=== PATIENT | female | born 1935 | race Caucasian/White ===

== ENCOUNTER 2017-07-17 07:17 | Inpatient (IN) | payer MEDICARE, MEDICAID ==
[~2017-07-17] VITALS: Ht 154.9 cm; Wt 54.9 kg
[~2017-07-17 07:17] MED LIST: ACET300T4 PO; AGG25C PO; ALBU0.08 HHN; BUSP15TA60 PO; ESOM40CA39 PO; FLUT110A IN; FLUT250M2 INH; IPR002IS HHN; MONT10TA34 PO; POM PO; THEO1CAP3 OR
[2017-07-17] MEDS ORDERED: SODIUM CHLORIDE 0.9% 1,000 ML IV ONE (07:50)
[2017-07-17] MEDS ORDERED: ALBUTEROL SULF 2.5 MG/0.5ML(0.5%) NEB SOLN HHN ONE (08:00)
[2017-07-17] MEDS ORDERED: methylPREDNISolone SOD SUCC 125 MG/2 ML VL IV ONE (08:00)
[2017-07-17] MEDS ORDERED: IPRATROPIUM BROM 0.5 MG/2.5ML INH SOL HHN ONE (08:00)
[2017-07-17] MEDS ORDERED: LEVOFLOXACIN 500MG 100 ML IV ONE (08:00)
[2017-07-17 08:07] LABS: Basophils # (auto) 0.1 uL; Eosinophils # (auto) 0.2 uL; Lymphocytes # (auto) 1.6 uL; Monocytes # (auto) 0.5 uL; Neutrophils # (auto) 5.8 uL; Red Cell Distribution Width 18.7 % (11.8-14.3)
[2017-07-17 08:09] LABS: Basophils % (auto) 0.8 % (0.0-2.0); Eosinophils % (auto) 2.5 % (0.0-7.0); Hematocrit 35.2 % (36.0-46.0); Hemoglobin 11.3 g/dL (12.2-16.2); Lymphocytes % (auto) 19.7 % (10.0-50.0); Mean Corpuscular Hemoglobin 24.2 pg (28.0-32.0); Mean Corpuscular Hgb Conc. 32.2 g/dL (32.0-36.0); Mean Corpuscular Volume 75.1 fL (80.0-100.0); Monocytes % (auto) 6.2 % (0.0-12.0); Neutrophils % (auto) 70.8 % (37.0-80.0); Platelet Count (auto) 236 10^3/uL (140-450); Red Blood Cells 4.69 10^6/uL (4.0-5.20); White Blood Cell 8.3 10^3/uL (4.4-10.8)
[2017-07-17 08:20] LABS: INR 0.98 (0.9-1.15); Partial Thromboplastin Time 22.7 sec (22.64-33.71); Prothrombin Time 10.7 sec (9.37-12.3)
[2017-07-17 08:31] LABS: Alanine Aminotransferase 15 U/L (13-56); Albumin 3.2 g/dL (3.4-5.0); Alkaline Phosphatase 51 U/L (45-117); Anion Gap 9 (5-15); Aspartate Aminotransferase 13 U/L (15-37); BUN/Creatinine Ratio 16.3; Bilirubin, Total 0.4 mg/dL (0.2-1.0); Blood Urea Nitrogen 14 mg/dL (7-18); Carbon Dioxide 25 mmol/L (21-32); Chloride 106 mmol/L (98-107); GFR African American 81 mL/min; GFR Non-African American 67 mL/min; Glucose 97 mg/dL (74-106); Potassium 3.3 mmol/L (3.5-5.1); Sodium 140 mmol/L (136-145); Total Protein 6.2 g/dL (6.4-8.2)
[2017-07-17] MEDS ORDERED: ALBUTEROL SULF 2.5 MG/0.5ML(0.5%) NEB SOLN NEB ONE (12:15)
[2017-07-17] MEDS ORDERED: IPRATROPIUM BROM 0.5 MG/2.5ML INH SOL NEB ONE (12:15)
[2017-07-17] MEDS ORDERED: OSELTAMIVIR 75 MG CAP PO ONE (12:45)
[2017-07-17] MEDS ORDERED: PROMETHAZINE HCL 25 MG/ML 1ML IV PRN (12:45)
[2017-07-17] MEDS ORDERED: DEXTROSE (50%) 50ML SYRG IV PRN (12:45)
[2017-07-17] MEDS ORDERED: ONDANSETRON HCL 4 MG/2 ML VIAL IV PRN (12:45)
[2017-07-17] MEDS ORDERED: LACTULOSE 20Gm/30ML SOLN PO PRN (12:45)
[2017-07-17] MEDS ORDERED: MORPHINE SULF INJ 2 MG/ML SYRINGE 1ML IV PRN (12:45)
[2017-07-17] MEDS ORDERED: DOXYCYCLINE HYC 100MG/250ML 250 ML IV SCH (12:45)
[2017-07-17] MEDS ORDERED: MORPHINE SULFATE 4 MG/ML SYR/VIAL IV PRN (12:45)
[2017-07-17] MEDS ORDERED: ACETAMINOPHEN 500 MG TAB PO PRN (12:45)
[2017-07-17] MEDS: SODIUM CHLORIDE 0.9% 1,000 ML IV SCH (13:07)
[2017-07-17] MEDS: METOPROLOL TARTRATE 25 MG TAB PO SCH (13:08)
[2017-07-17] MEDS: MONTELUKAST SODIUM 10 MG TAB PO SCH (13:08)
[2017-07-17] MEDS ORDERED: POTASSIUM CHL 20 Meq TABLET PO ONE (13:15)
[2017-07-17] MEDS: ASPirin 81 mg TAB PO SCH (13:30)
[2017-07-17] MEDS: PANTOPRAZOLE 40 MG TAB PO SCH (13:30)
[2017-07-17] MEDS ORDERED: AZITHROMYCIN 500MG/ 250ML 250 ML IV ONE (13:45)
[2017-07-17] MEDS ORDERED: POTASSIUM CHL 10% (20 MEQ/15ML) 15ml ORAL SOLN PO ONE (13:45)
[2017-07-17] MEDS: LORazepam 0.5 MG TAB PO PRN (13:59)
[2017-07-17] MEDS: AZITHROMYCIN 250 MG TAB PO SCH (13:59)
[2017-07-17 14:58] LABS: CRP High Sensitivity 0.35 mg/dL (< 0.3)
[2017-07-17] MEDS: ALBUTEROL SULF 2.5 MG/0.5ML(0.5%) NEB SOLN NEB PRN (15:37)
[2017-07-17] MEDS: IPRATROPIUM BROM 0.5 MG/2.5ML INH SOL NEB SCH (18:39)
[2017-07-17] MEDS: ALBUTEROL SULF 2.5 MG/0.5ML(0.5%) NEB SOLN NEB SCH (18:39)
[2017-07-17] MEDS: ACCU-CHEK COMFORT CURVE STRIP VI SCH (18:42)
[2017-07-17] MEDS: methylPREDNISolone SOD SUCC 40 MG/ML VL IV SCH (18:42)
[2017-07-17] MEDS: InsuLIN REG 1unit/0.01ml Soln (100units/ml) SC SCH (18:42)
[2017-07-17] MEDS ORDERED: FLOVENT IN SCH (22:00)
[2017-07-17] MEDS ORDERED: OSELTAMIVIR 75 MG CAP PO SCH (22:00)
[2017-07-17] MEDS: BUDESONIDE (INHALATION) 0.5 MG/2 ML NEB NEB SCH (22:30)
[2017-07-17 23:24] VITALS: BP 119/63
[2017-07-18] VITALS (7 sets, daily range): BP systolic 109–149; BP diastolic 58–80
[2017-07-18] MEDS: ALBUTEROL SULF 2.5 MG/0.5ML(0.5%) NEB SOLN NEB SCH ×4 (00:15→18:45)
[2017-07-18] MEDS: IPRATROPIUM BROM 0.5 MG/2.5ML INH SOL NEB SCH ×4 (00:15→18:45)
[2017-07-18] MEDS: ACCU-CHEK COMFORT CURVE STRIP VI SCH ×5 (01:21→22:00)
[2017-07-18] MEDS: InsuLIN REG 1unit/0.01ml Soln (100units/ml) SC SCH ×5 (01:24→22:00)
[2017-07-18] MEDS: busPIRone HCL 10 MG TAB PO SCH ×3 (01:34→21:57)
[2017-07-18] MEDS: METOPROLOL TARTRATE 25 MG TAB PO SCH ×3 (01:35→21:57)
[2017-07-18] MEDS: ATORVASTATIN 20 MG TAB PO SCH ×2 (01:35→21:56)
[2017-07-18] MEDS: methylPREDNISolone SOD SUCC 40 MG/ML VL IV SCH ×4 (01:36→18:02)
[2017-07-18] MEDS: PATIENTS OWN MEDICATION PO SCH ×3 (01:37→21:59)
[2017-07-18] MEDS: HYDROcodone-ACET 5/325MG TAB PO PRN ×2 (02:41→15:29)
[2017-07-18] MEDS: SODIUM CHLORIDE 0.9% 1,000 ML IV SCH ×2 (02:41→15:19)
[2017-07-18 07:00] LABS: Cholesterol 236 mg/dL (< 200); HDL Cholesterol 102 mg/dL (40-59); LDL Cholesterol 122 mg/dL (< 100); Triglycerides 110 mg/dL (< 150)
[2017-07-18] MEDS: ALBUTEROL SULF 2.5 MG/0.5ML(0.5%) NEB SOLN NEB PRN (08:51)
[2017-07-18] MEDS: ASPirin 81 mg TAB PO SCH (09:49)
[2017-07-18] MEDS: AZITHROMYCIN 250 MG TAB PO SCH (09:49)
[2017-07-18] MEDS: PANTOPRAZOLE 40 MG TAB PO SCH (09:49)
[2017-07-18] MEDS: THEOPHYLLINE 300 MG PO SCH (10:00)
[2017-07-18] MEDS ORDERED: AZITHROMYCIN 500MG/ 250ML 250 ML IV SCH (10:00)
[2017-07-18] MEDS: MONTELUKAST SODIUM 10 MG TAB PO SCH (10:17)
[2017-07-18] MEDS: ASPIRIN-DIPYRIDAMOLE (25/200MG) CAPSULE PO SCH (10:17)
[2017-07-18] MEDS: BUDESONIDE (INHALATION) 0.5 MG/2 ML NEB NEB SCH ×2 (11:43→18:45)
[2017-07-18] MEDS: LORazepam 0.5 MG TAB PO PRN (14:47)
[2017-07-18] MEDS ORDERED: FUROSEMIDE 20 MG/2 ML VIAL IV ONE (17:45)
[2017-07-18] MEDS: BOOST PLUS 8 ounce PO SCH (18:02)
[2017-07-19] MEDS: IPRATROPIUM BROM 0.5 MG/2.5ML INH SOL NEB SCH ×4 (00:19→18:12)
[2017-07-19] MEDS: ALBUTEROL SULF 2.5 MG/0.5ML(0.5%) NEB SOLN NEB SCH ×4 (00:19→18:12)
[2017-07-19 06:00] VITALS: BP 129/67
[2017-07-19 06:24] LABS: Basophils # (auto) 0 uL; Basophils % (auto) 0.2 % (0.0-2.0); Eosinophils # (auto) 0 uL; Lymphocytes # (auto) 0.4 uL
[2017-07-19 06:26] LABS: Hematocrit 36.1 % (36.0-46.0); Hemoglobin 11.3 g/dL (12.2-16.2); Mean Corpuscular Hemoglobin 23.7 pg (28.0-32.0); Mean Corpuscular Hgb Conc. 31.3 g/dL (32.0-36.0); Mean Corpuscular Volume 75.8 fL (80.0-100.0); Monocytes # (auto) 0.4 uL; Monocytes % (auto) 1.9 % (0.0-12.0); Neutrophils # (auto) 18.9 uL; Neutrophils % (auto) 95.9 % (37.0-80.0); Platelet Count (auto) 244 10^3/uL (140-450); Red Blood Cells 4.76 10^6/uL (4.0-5.20); Red Cell Distribution Width 18.7 % (11.8-14.3); White Blood Cell 19.7 10^3/uL (4.4-10.8)
[2017-07-19] MEDS: BUDESONIDE (INHALATION) 0.5 MG/2 ML NEB NEB SCH ×2 (06:34→18:12)
[2017-07-19] MEDS: methylPREDNISolone SOD SUCC 40 MG/ML VL IV SCH ×4 (06:34→18:00)
[2017-07-19] MEDS: ACCU-CHEK COMFORT CURVE STRIP VI SCH ×4 (06:37→22:17)
[2017-07-19] MEDS: InsuLIN REG 1unit/0.01ml Soln (100units/ml) SC SCH ×4 (06:37→22:00)
[2017-07-19 06:57] LABS: Alanine Aminotransferase 16 U/L (13-56); Albumin 3.1 g/dL (3.4-5.0); Alkaline Phosphatase 45 U/L (45-117); Anion Gap 8 (5-15); Aspartate Aminotransferase 11 U/L (15-37); BUN/Creatinine Ratio 28.6; Bilirubin, Total 0.4 mg/dL (0.2-1.0); Blood Urea Nitrogen 20 mg/dL (7-18); Calcium 8.8 mg/dL (8.5-10.1); Carbon Dioxide 24 mmol/L (21-32); Chloride 109 mmol/L (98-107); GFR African American 103 mL/min; GFR Non-African American 85 mL/min; Glucose 117 mg/dL (74-106); Potassium 4.1 mmol/L (3.5-5.1); Sodium 141 mmol/L (136-145); Total Protein 6.1 g/dL (6.4-8.2)
[2017-07-19] MEDS: BOOST PLUS 8 ounce PO SCH ×3 (08:30→18:07)
[2017-07-19 09:00] VITALS: BP 120/87
[2017-07-19] MEDS: ALBUTEROL SULF 2.5 MG/0.5ML(0.5%) NEB SOLN NEB PRN ×2 (09:20→21:43)
[2017-07-19] MEDS: THEOPHYLLINE 300 MG PO SCH ×2 (10:00→11:46)
[2017-07-19] MEDS: PATIENTS OWN MEDICATION PO SCH ×2 (10:00→22:16)
[2017-07-19] MEDS: ASPirin 81 mg TAB PO SCH (10:05)
[2017-07-19] MEDS: MONTELUKAST SODIUM 10 MG TAB PO SCH (10:06)
[2017-07-19] MEDS: busPIRone HCL 10 MG TAB PO SCH ×2 (10:06→22:13)
[2017-07-19] MEDS: PANTOPRAZOLE 40 MG TAB PO SCH (10:06)
[2017-07-19] MEDS: AZITHROMYCIN 250 MG TAB PO SCH (10:06)
[2017-07-19] MEDS: METOPROLOL TARTRATE 25 MG TAB PO SCH ×2 (10:07→22:00)
[2017-07-19] MEDS: LORazepam 0.5 MG TAB PO PRN (10:45)
[2017-07-19] MEDS: ASPIRIN-DIPYRIDAMOLE (25/200MG) CAPSULE PO SCH (10:45)
[2017-07-19] MEDS ORDERED: cefTRIAXone 1GM/10ml IVPUSH 10 ML IV ONE (11:45)
[2017-07-19 13:16] VITALS: BP 107/53
[2017-07-19 17:00] VITALS: BP_SYST 113; BP_SYST 149; BP_DIAS 56; BP_DIAS 79
[2017-07-19 20:00] VITALS: BP 108/58
[2017-07-19 22:00] VITALS: BP 108/58
[2017-07-19] MEDS: ATORVASTATIN 20 MG TAB PO SCH (22:13)
[2017-07-19] MEDS: HYDROcodone-ACET 5/325MG TAB PO PRN (22:13)
[2017-07-20] MEDS: methylPREDNISolone SOD SUCC 125 MG/2 ML VL IV SCH ×3 (00:22→17:27)
[2017-07-20] MEDS: ALBUTEROL SULF 2.5 MG/0.5ML(0.5%) NEB SOLN NEB SCH ×4 (01:23→19:03)
[2017-07-20] MEDS: IPRATROPIUM BROM 0.5 MG/2.5ML INH SOL NEB SCH ×4 (01:23→19:03)
[2017-07-20] MEDS: TEMAZEPAM 15 MG CAP PO PRN ×2 (01:44→21:30)
[2017-07-20 05:19] VITALS: BP 110/59
[2017-07-20] MEDS: ACCU-CHEK COMFORT CURVE STRIP VI SCH (06:04)
[2017-07-20] MEDS: InsuLIN REG 1unit/0.01ml Soln (100units/ml) SC SCH (06:04)
[2017-07-20 06:44] LABS: Eosinophils # (auto) 0 uL; Hemoglobin 11.1 g/dL (12.2-16.2)
[2017-07-20 06:45] LABS: Basophils # (auto) 0.1 uL; Basophils % (auto) 0.3 % (0.0-2.0); Hematocrit 34.8 % (36.0-46.0); Lymphocytes # (auto) 0.3 uL; Lymphocytes % (auto) 1.7 % (10.0-50.0); Mean Corpuscular Hgb Conc. 31.9 g/dL (32.0-36.0); Mean Corpuscular Volume 75.1 fL (80.0-100.0); Monocytes # (auto) 0.3 uL; Monocytes % (auto) 1.6 % (0.0-12.0); Neutrophils # (auto) 15.8 uL; Neutrophils % (auto) 96.4 % (37.0-80.0); Platelet Count (auto) 216 10^3/uL (140-450); Red Blood Cells 4.63 10^6/uL (4.0-5.20); White Blood Cell 16.4 10^3/uL (4.4-10.8)
[2017-07-20 06:59] LABS: BUN/Creatinine Ratio 35.8; Calcium 8.8 mg/dL (8.5-10.1); Potassium 3.8 mmol/L (3.5-5.1)
[2017-07-20] MEDS: BOOST PLUS 8 ounce PO SCH ×3 (08:00→17:27)
[2017-07-20] MEDS: BUDESONIDE (INHALATION) 0.5 MG/2 ML NEB NEB SCH ×2 (08:08→19:04)
[2017-07-20 10:04] VITALS: BP 138/65
[2017-07-20] MEDS: METOPROLOL TARTRATE 25 MG TAB PO SCH ×2 (10:52→21:30)
[2017-07-20] MEDS: ASPirin 81 mg TAB PO SCH (10:52)
[2017-07-20] MEDS: THEOPHYLLINE 300 MG PO SCH (10:53)
[2017-07-20] MEDS: MONTELUKAST SODIUM 10 MG TAB PO SCH (10:53)
[2017-07-20] MEDS: busPIRone HCL 10 MG TAB PO SCH ×2 (10:53→21:29)
[2017-07-20] MEDS: PANTOPRAZOLE 40 MG TAB PO SCH (10:53)
[2017-07-20] MEDS: cefTRIAXone 1GM/10ml IVPUSH 10 ML IV SCH (10:54)
[2017-07-20] MEDS: ASPIRIN-DIPYRIDAMOLE (25/200MG) CAPSULE PO SCH (10:54)
[2017-07-20 13:00] VITALS: BP 108/67
[2017-07-20 17:13] VITALS: BP 133/71
[2017-07-20] MEDS: LORazepam 0.5 MG TAB PO PRN (17:26)
[2017-07-20] MEDS: ATORVASTATIN 20 MG TAB PO SCH (21:29)
[2017-07-20] MEDS: PROMETHAZINE W/CODEINE 5 ML ORAL SYRUP PO PRN (21:30)
[2017-07-20 23:41] VITALS: BP 118/74
[2017-07-20 23:48] VITALS: BP 118/63
[2017-07-21] MEDS: ALBUTEROL SULF 2.5 MG/0.5ML(0.5%) NEB SOLN NEB SCH ×4 (00:31→19:11)
[2017-07-21] MEDS: IPRATROPIUM BROM 0.5 MG/2.5ML INH SOL NEB SCH ×4 (00:31→19:11)
[2017-07-21] MEDS: HYDROcodone-ACET 5/325MG TAB PO PRN ×2 (02:41→21:28)
[2017-07-21 04:49] VITALS: BP 107/58
[2017-07-21] MEDS: methylPREDNISolone SOD SUCC 125 MG/2 ML VL IV SCH ×2 (05:35→17:50)
[2017-07-21] MEDS: BUDESONIDE (INHALATION) 0.5 MG/2 ML NEB NEB SCH ×2 (05:56→19:11)
[2017-07-21] MEDS: NITROGLYCERIN 0.4 MG SL TAB SL PRN ×2 (06:21→06:25)
[2017-07-21 06:31] LABS: Basophils # (auto) 0 uL; Basophils % (auto) 0.2 % (0.0-2.0); Eosinophils # (auto) 0 uL; Eosinophils % (auto) 0.1 % (0.0-7.0); Hemoglobin 10.6 g/dL (12.2-16.2); Mean Corpuscular Hemoglobin 24.1 pg (28.0-32.0); Monocytes # (auto) 0.8 uL; Neutrophils # (auto) 13.9 uL
[2017-07-21 06:33] LABS: Lymphocytes # (auto) 0.8 uL; Lymphocytes % (auto) 4.9 % (10.0-50.0); Mean Corpuscular Hgb Conc. 32.1 g/dL (32.0-36.0); Mean Corpuscular Volume 75.1 fL (80.0-100.0); Monocytes % (auto) 5.4 % (0.0-12.0); Neutrophils % (auto) 89.4 % (37.0-80.0); Platelet Count (auto) 211 10^3/uL (140-450); Red Cell Distribution Width 19.1 % (11.8-14.3); White Blood Cell 15.6 10^3/uL (4.4-10.8)
[2017-07-21 06:47] LABS: BUN/Creatinine Ratio 51.8
[2017-07-21] MEDS: BOOST PLUS 8 ounce PO SCH ×3 (08:00→17:50)
[2017-07-21 08:46] VITALS: BP 143/69
[2017-07-21] MEDS: PANTOPRAZOLE 40 MG TAB PO SCH (09:36)
[2017-07-21] MEDS: ASPirin 81 mg TAB PO SCH (09:36)
[2017-07-21] MEDS: ASPIRIN-DIPYRIDAMOLE (25/200MG) CAPSULE PO SCH (09:36)
[2017-07-21] MEDS: THEOPHYLLINE 300 MG PO SCH (09:36)
[2017-07-21] MEDS: RANOLAZINE ER 500 MG TAB PO SCH ×2 (09:36→21:31)
[2017-07-21] MEDS: MONTELUKAST SODIUM 10 MG TAB PO SCH (09:37)
[2017-07-21] MEDS: METOPROLOL TARTRATE 25 MG TAB PO SCH ×2 (09:37→21:27)
[2017-07-21] MEDS: busPIRone HCL 10 MG TAB PO SCH ×2 (09:37→21:28)
[2017-07-21] MEDS: cefTRIAXone 1GM/10ml IVPUSH 10 ML IV SCH (09:38)
[2017-07-21] MEDS: ALBUTEROL SULF 2.5 MG/0.5ML(0.5%) NEB SOLN NEB PRN (10:20)
[2017-07-21 11:59] VITALS: BP 115/58
[2017-07-21 16:40] VITALS: BP 108/61
[2017-07-21] MEDS: LORazepam 0.5 MG TAB PO PRN (19:19)
[2017-07-21] MEDS: ATORVASTATIN 20 MG TAB PO SCH (21:27)
[2017-07-21] MEDS: TEMAZEPAM 15 MG CAP PO PRN (21:29)
[2017-07-21] MEDS: PROMETHAZINE W/CODEINE 5 ML ORAL SYRUP PO PRN (21:29)
[2017-07-21 22:00] VITALS: BP 133/72
[2017-07-22] MEDS: IPRATROPIUM BROM 0.5 MG/2.5ML INH SOL NEB SCH ×4 (00:23→20:02)
[2017-07-22] MEDS: ALBUTEROL SULF 2.5 MG/0.5ML(0.5%) NEB SOLN NEB SCH ×4 (00:23→20:02)
[2017-07-22 05:16] VITALS: BP 139/75
[2017-07-22] MEDS: methylPREDNISolone SOD SUCC 125 MG/2 ML VL IV SCH ×2 (05:45→17:49)
[2017-07-22] MEDS: LORazepam 0.5 MG TAB PO PRN ×2 (06:05→22:11)
[2017-07-22] MEDS: BUDESONIDE (INHALATION) 0.5 MG/2 ML NEB NEB SCH ×2 (07:11→20:02)
[2017-07-22 07:13] LABS: Basophils # (auto) 0 uL; Eosinophils # (auto) 0 uL; Hemoglobin 11.5 g/dL (12.2-16.2); Monocytes # (auto) 0.5 uL; Neutrophils # (auto) 10.9 uL; Nucleated Red Blood Cells % 0.1 %; White Blood Cell 11.9 10^3/uL (4.4-10.8)
[2017-07-22 07:20] LABS: Basophils % (auto) 0.1 % (0.0-2.0); Eosinophils % (auto) 0.1 % (0.0-7.0); Hematocrit 36.4 % (36.0-46.0); Lymphocytes # (auto) 0.6 uL; Lymphocytes % (auto) 4.7 % (10.0-50.0); Mean Corpuscular Hgb Conc. 31.6 g/dL (32.0-36.0); Monocytes % (auto) 3.8 % (0.0-12.0); Neutrophils % (auto) 91.3 % (37.0-80.0); Platelet Count (auto) 214 10^3/uL (140-450); Red Blood Cells 4.79 10^6/uL (4.0-5.20); Red Cell Distribution Width 18.7 % (11.8-14.3)
[2017-07-22 07:25] LABS: Calcium 9.5 mg/dL (8.5-10.1); Potassium 4.1 mmol/L (3.5-5.1)
[2017-07-22] MEDS: BOOST PLUS 8 ounce PO SCH ×3 (08:00→17:49)
[2017-07-22 08:59] VITALS: BP 152/66
[2017-07-22] MEDS: cefTRIAXone 1GM/10ml IVPUSH 10 ML IV SCH (09:09)
[2017-07-22] MEDS: busPIRone HCL 10 MG TAB PO SCH ×2 (09:10→21:51)
[2017-07-22] MEDS: PANTOPRAZOLE 40 MG TAB PO SCH (09:10)
[2017-07-22] MEDS: MONTELUKAST SODIUM 10 MG TAB PO SCH (09:10)
[2017-07-22] MEDS: ASPIRIN-DIPYRIDAMOLE (25/200MG) CAPSULE PO SCH (09:10)
[2017-07-22] MEDS: ASPirin 81 mg TAB PO SCH (09:10)
[2017-07-22] MEDS: RANOLAZINE ER 500 MG TAB PO SCH ×2 (09:11→21:50)
[2017-07-22] MEDS: THEOPHYLLINE 300 MG PO SCH (09:11)
[2017-07-22] MEDS: METOPROLOL TARTRATE 25 MG TAB PO SCH ×2 (09:11→21:51)
[2017-07-22] MEDS: ALBUTEROL SULF 2.5 MG/0.5ML(0.5%) NEB SOLN NEB PRN ×2 (10:50→16:27)
[2017-07-22 13:00] VITALS: BP 114/58
[2017-07-22 17:00] VITALS: BP 122/62
[2017-07-22 21:30] VITALS: BP 119/65
[2017-07-22] MEDS: ATORVASTATIN 20 MG TAB PO SCH (21:50)
[2017-07-23] MEDS: IPRATROPIUM BROM 0.5 MG/2.5ML INH SOL NEB SCH ×4 (01:23→19:25)
[2017-07-23] MEDS: ALBUTEROL SULF 2.5 MG/0.5ML(0.5%) NEB SOLN NEB SCH ×4 (01:23→19:25)
[2017-07-23 05:00] VITALS: BP 132/69
[2017-07-23] MEDS: methylPREDNISolone SOD SUCC 125 MG/2 ML VL IV SCH ×2 (05:57→18:25)
[2017-07-23 08:14] LABS: Basophils # (auto) 0 uL; Basophils % (auto) 0.1 % (0.0-2.0); Eosinophils # (auto) 0 uL; Eosinophils % (auto) 0.1 % (0.0-7.0); Lymphocytes # (auto) 0.6 uL; Mean Corpuscular Hemoglobin 23.9 pg (28.0-32.0); Mean Corpuscular Hgb Conc. 31.5 g/dL (32.0-36.0); Mean Corpuscular Volume 75.8 fL (80.0-100.0); Red Cell Distribution Width 18.9 % (11.8-14.3)
[2017-07-23 08:16] LABS: Hematocrit 38.3 % (36.0-46.0); Monocytes # (auto) 0.7 uL; Monocytes % (auto) 4.5 % (0.0-12.0); Neutrophils # (auto) 13.2 uL; Neutrophils % (auto) 91.3 % (37.0-80.0); Platelet Count (auto) 237 10^3/uL (140-450); Red Blood Cells 5.05 10^6/uL (4.0-5.20); White Blood Cell 14.4 10^3/uL (4.4-10.8)
[2017-07-23 08:35] LABS: BUN/Creatinine Ratio 31.1; Calcium 9.6 mg/dL (8.5-10.1); Potassium 4.7 mmol/L (3.5-5.1)
[2017-07-23] MEDS: HYDROcodone-ACET 5/325MG TAB PO PRN ×3 (08:41→18:35)
[2017-07-23] MEDS: ALBUTEROL SULF 2.5 MG/0.5ML(0.5%) NEB SOLN NEB PRN (09:07)
[2017-07-23 09:46] VITALS: BP 136/75
[2017-07-23] MEDS: RANOLAZINE ER 500 MG TAB PO SCH ×2 (10:00→22:01)
[2017-07-23] MEDS: THEOPHYLLINE 300 MG PO SCH (10:00)
[2017-07-23] MEDS: POTASSIUM CHL 20 Meq TABLET PO ONE ×2 (10:30→10:59)
[2017-07-23] MEDS ORDERED: FUROSEMIDE 20 MG/2 ML VIAL IV ONE (10:30)
[2017-07-23] MEDS: BOOST PLUS 8 ounce PO SCH ×3 (10:47→18:26)
[2017-07-23] MEDS: cefTRIAXone 1GM/10ml IVPUSH 10 ML IV SCH (10:47)
[2017-07-23] MEDS: PANTOPRAZOLE 40 MG TAB PO SCH (10:48)
[2017-07-23] MEDS: ASPIRIN-DIPYRIDAMOLE (25/200MG) CAPSULE PO SCH (10:48)
[2017-07-23] MEDS: MONTELUKAST SODIUM 10 MG TAB PO SCH (10:48)
[2017-07-23] MEDS: ASPirin 81 mg TAB PO SCH (10:48)
[2017-07-23] MEDS: busPIRone HCL 10 MG TAB PO SCH ×2 (10:49→22:01)
[2017-07-23] MEDS: METOPROLOL TARTRATE 25 MG TAB PO SCH ×2 (10:59→22:00)
[2017-07-23] MEDS: LORazepam 0.5 MG TAB PO PRN ×2 (11:12→18:35)
[2017-07-23] MEDS: PROMETHAZINE W/CODEINE 5 ML ORAL SYRUP PO PRN ×2 (11:12→18:44)
[2017-07-23] MEDS: BUDESONIDE (INHALATION) 0.5 MG/2 ML NEB NEB SCH ×2 (12:34→19:25)
[2017-07-23 13:00] VITALS: BP 124/75
[2017-07-23 17:00] VITALS: BP 113/60
[2017-07-23 19:27] VITALS: BP 124/75
[2017-07-23 21:30] VITALS: BP 102/53
[2017-07-23] MEDS: ATORVASTATIN 20 MG TAB PO SCH (22:03)
[2017-07-24] MEDS: IPRATROPIUM BROM 0.5 MG/2.5ML INH SOL NEB SCH ×2 (00:49→05:54)
[2017-07-24] MEDS: ALBUTEROL SULF 2.5 MG/0.5ML(0.5%) NEB SOLN NEB SCH ×2 (00:49→05:54)
[2017-07-24] MEDS: HYDROcodone-ACET 5/325MG TAB PO PRN ×2 (01:10→08:32)
[2017-07-24 05:00] VITALS: BP 123/65
[2017-07-24] MEDS: methylPREDNISolone SOD SUCC 125 MG/2 ML VL IV SCH (05:18)
[2017-07-24] MEDS: BUDESONIDE (INHALATION) 0.5 MG/2 ML NEB NEB SCH (05:55)
[2017-07-24 06:35] LABS: Basophils # (auto) 0 uL; Eosinophils # (auto) 0 uL; Hematocrit 35.3 % (36.0-46.0); Mean Corpuscular Hemoglobin 24.1 pg (28.0-32.0); Monocytes # (auto) 0.5 uL; Monocytes % (auto) 4.2 % (0.0-12.0); Neutrophils # (auto) 10.9 uL; Platelet Count (auto) 252 10^3/uL (140-450)
[2017-07-24 06:37] LABS: BUN/Creatinine Ratio 41.7; Calcium 9.1 mg/dL (8.5-10.1); Hemoglobin 11.3 g/dL (12.2-16.2); Lymphocytes # (auto) 0.6 uL; Lymphocytes % (auto) 4.9 % (10.0-50.0); Mean Corpuscular Hgb Conc. 32.2 g/dL (32.0-36.0); Mean Corpuscular Volume 74.9 fL (80.0-100.0); Neutrophils % (auto) 90.9 % (37.0-80.0); Potassium 4.1 mmol/L (3.5-5.1); Red Blood Cells 4.71 10^6/uL (4.0-5.20); Red Cell Distribution Width 18.8 % (11.8-14.3)
[2017-07-24] MEDS: BOOST PLUS 8 ounce PO SCH (08:00)
[2017-07-24 09:00] VITALS: BP 137/78
[2017-07-24] MEDS: PANTOPRAZOLE 40 MG TAB PO SCH (09:09)
[2017-07-24] MEDS: ASPirin 81 mg TAB PO SCH (09:09)
[2017-07-24] MEDS: cefTRIAXone 1GM/10ml IVPUSH 10 ML IV SCH (09:09)
[2017-07-24] MEDS: busPIRone HCL 10 MG TAB PO SCH (09:10)
[2017-07-24] MEDS: ASPIRIN-DIPYRIDAMOLE (25/200MG) CAPSULE PO SCH (09:10)
[2017-07-24] MEDS: MONTELUKAST SODIUM 10 MG TAB PO SCH (09:10)
[2017-07-24] MEDS: RANOLAZINE ER 500 MG TAB PO SCH (09:11)
[2017-07-24] MEDS: THEOPHYLLINE 300 MG PO SCH (09:11)
[2017-07-24] MEDS: ALBUTEROL SULF 2.5 MG/0.5ML(0.5%) NEB SOLN NEB PRN (09:27)
[2017-07-24] MEDS: PROMETHAZINE W/CODEINE 5 ML ORAL SYRUP PO PRN (11:54)
[2017-07-24] MEDS: LORazepam 0.5 MG TAB PO PRN (11:55)
== END 2017-07-24 13:00 | disposition home or self-care (01) | DRG 191 ==
LOC: ER 07:17 → EDBD 07:17 → TELE 07:18 → TELE-CENTR 07-18 01:38
PROVIDERS: ADMIT Internal Medicine; ATTEND Internal Medicine
DX: J44.1 Chronic obstructive pulmonary disease with (acute) exacerbation (principal); E44.0 Moderate protein-calorie malnutrition; I27.81 Cor pulmonale (chronic); E11.9 Type 2 diabetes mellitus without complications; I25.118 Atherosclerotic heart disease of native coronary artery with other forms of angina pectoris; E78.5 Hyperlipidemia, unspecified; I10 Essential (primary) hypertension; M81.0 Age-related osteoporosis without current pathological fracture; Z96.651 Presence of right artificial knee joint; F41.9 Anxiety disorder, unspecified; G47.00 Insomnia, unspecified; K59.00 Constipation, unspecified; E87.6 Hypokalemia; Z82.49 Family history of ischemic heart disease and other diseases of the circulatory system; Z82.5 Family history of asthma and other chronic lower respiratory diseases; Z83.3 Family history of diabetes mellitus; Z90.89 Acquired absence of other organs; Z90.49 Acquired absence of other specified parts of digestive tract; Z88.1 Allergy status to other antibiotic agents; Z88.8 Allergy status to other drugs, medicaments and biological substances; Z79.899 Other long term (current) drug therapy; Z68.22 Body mass index [BMI] 22.0-22.9, adult; Z85.3 Personal history of malignant neoplasm of breast; Z86.14 Personal history of Methicillin resistant Staphylococcus aureus infection; Z87.891 Personal history of nicotine dependence; Z90.13 Acquired absence of bilateral breasts and nipples; Z90.710 Acquired absence of both cervix and uterus
CPT/HCPCS: 36415; 36600; 71045; 71046; 80048; 80053; 80061; 82550; 82805; 82962; 83036; 83605; 83735; 83880; 84484; 85025; 85379; 85610; 85652; 85730; 86141; 87040; 87070; 87205; 87400; 93005; 94640; 96365; 96375; J1815; J1956

== ENCOUNTER 2017-08-20 22:27 | Inpatient (IN) | payer MEDICARE, MEDICAID ==
[~2017-08-20] VITALS: Ht 154.9 cm; Wt 53.0 kg
[2017-08-20] MEDS ORDERED: cefTRIAXone 1GM/10ml IVPUSH 10 ML IV ONE (23:15)
[2017-08-20] MEDS ORDERED: methylPREDNISolone SOD SUCC 125 MG/2 ML VL IV ONE (23:15)
[2017-08-20] MEDS ORDERED: SODIUM CHLORIDE 0.9% 1,000 ML IV ONE (23:15)
[2017-08-20] MEDS ORDERED: RANO500T2 PO (23:16)
[2017-08-20] MEDS ORDERED: LORA-654 PO (23:16)
[2017-08-20 23:25] LABS: Eosinophils # (auto) 0 uL; Lymphocytes # (auto) 0.3 uL; Lymphocytes % (auto) 1.2 % (10.0-50.0); Mean Corpuscular Volume 76.5 fL (80.0-100.0)
[2017-08-20 23:27] LABS: Basophils # (auto) 0 uL; Basophils % (auto) 0.2 % (0.0-2.0); Eosinophils % (auto) 0.1 % (0.0-7.0); Hematocrit 32.7 % (36.0-46.0); Hemoglobin 10.6 g/dL (12.2-16.2); Mean Corpuscular Hemoglobin 24.7 pg (28.0-32.0); Mean Corpuscular Hgb Conc. 32.3 g/dL (32.0-36.0); Monocytes # (auto) 0.6 uL; Monocytes % (auto) 2.5 % (0.0-12.0); Neutrophils # (auto) 22.5 uL; Nucleated Red Blood Cells % 0.1 %; Platelet Count (auto) 418 10^3/uL (140-450); Red Blood Cells 4.28 10^6/uL (4.0-5.20); White Blood Cell 23.4 10^3/uL (4.4-10.8)
[2017-08-20 23:28] LABS: Red Cell Distribution Width 20.8 % (11.8-14.3)
[2017-08-20 23:44] LABS: Albumin 2.3 g/dL (3.4-5.0); Anion Gap 12 (5-15); Blood Urea Nitrogen 20 mg/dL (7-18); Calcium 10.3 mg/dL (8.5-10.1); Carbon Dioxide 21 mmol/L (21-32); Chloride 101 mmol/L (98-107); Glucose 111 mg/dL (74-106); Magnesium 2.1 mg/dL (1.6-2.6); Potassium 4.2 mmol/L (3.5-5.1); Sodium 134 mmol/L (136-145)
[2017-08-20 23:45] LABS: Alanine Aminotransferase 11 U/L (13-56); Aspartate Aminotransferase 11 U/L (15-37); BUN/Creatinine Ratio 28.2; GFR African American 101 mL/min; GFR Non-African American 83 mL/min
[2017-08-20 23:51] LABS: Alkaline Phosphatase 94 U/L (45-117); Bilirubin, Total 0.7 mg/dL (0.2-1.0); Total Protein 7.1 g/dL (6.4-8.2)
[2017-08-21] MEDS ORDERED: ACETAMINOPHEN 325 MG TAB PO ONE (00:30)
[2017-08-21] MEDS ORDERED: METOPROLOL TARTRATE 50 MG TAB PO ONE (00:45)
[2017-08-21 00:56] LABS: Urine Bacteria NONE SEEN /hpf (None Seen); Urine Blood Negative /uL (Negative); Urine Specific Gravity 1.014 (1.001-1.035); Urine WBC 2 /hpf (0 - 5)
[2017-08-21] MEDS ORDERED: VANCOMYCIN 1GM/250ML 250 ML IV ONE (01:45)
[2017-08-21] MEDS ORDERED: ONDANSETRON HCL 4 MG/2 ML VIAL IV PRN (04:30)
[2017-08-21] MEDS: SODIUM CHLORIDE 0.9% 1,000 ML IV SCH ×2 (04:56→13:12)
[2017-08-21 05:24] LABS: Eosinophils # (auto) 0 uL; Hemoglobin 10.2 g/dL (12.2-16.2)
[2017-08-21 05:26] LABS: Basophils # (auto) 0 uL; Basophils % (auto) 0.1 % (0.0-2.0); Hematocrit 32.2 % (36.0-46.0); Lymphocytes # (auto) 0.3 uL; Lymphocytes % (auto) 1.3 % (10.0-50.0); Mean Corpuscular Hemoglobin 24.6 pg (28.0-32.0); Mean Corpuscular Hgb Conc. 31.7 g/dL (32.0-36.0); Mean Corpuscular Volume 77.4 fL (80.0-100.0); Monocytes # (auto) 0.4 uL; Monocytes % (auto) 1.7 % (0.0-12.0); Neutrophils # (auto) 24.3 uL; Neutrophils % (auto) 96.9 % (37.0-80.0); Platelet Count (auto) 360 10^3/uL (140-450); Red Blood Cells 4.16 10^6/uL (4.0-5.20); White Blood Cell 25.1 10^3/uL (4.4-10.8)
[2017-08-21 05:31] LABS: Red Cell Distribution Width 21.1 % (11.8-14.3)
[2017-08-21 05:35] LABS: BUN/Creatinine Ratio 28.6; Calcium 10.6 mg/dL (8.5-10.1); Potassium 3.8 mmol/L (3.5-5.1)
[2017-08-21] MEDS: ALBUTEROL SULF 2.5 MG/0.5ML(0.5%) NEB SOLN NEB SCH ×5 (05:45→22:41)
[2017-08-21] MEDS: IPRATROPIUM BROM 0.5 MG/2.5ML INH SOL NEB SCH ×5 (05:45→22:41)
[2017-08-21] MEDS ORDERED: IPRATROPIUM BROM 0.5 MG/2.5ML INH SOL NEB SCH (06:00)
[2017-08-21] MEDS ORDERED: ALBUTEROL SULF 2.5 MG/0.5ML(0.5%) NEB SOLN NEB SCH (06:00)
[2017-08-21 08:21] VITALS: BP 110/67
[2017-08-21] MEDS ORDERED: AZITHROMYCIN 500MG/ 250ML 250 ML IV SCH (10:00)
[2017-08-21 17:22] VITALS: BP 143/88
[2017-08-21 19:27] VITALS: BP 143/88
[2017-08-21] MEDS: cefTRIAXone 1GM/10ml IVPUSH 10 ML IV SCH (21:27)
[2017-08-21] MEDS: PROMETHAZINE W/CODEINE 5 ML ORAL SYRUP PO PRN (21:35)
[2017-08-21 22:00] VITALS: BP 111/65
[2017-08-22] MEDS: ALBUTEROL SULF 2.5 MG/0.5ML(0.5%) NEB SOLN NEB SCH ×6 (02:29→22:23)
[2017-08-22] MEDS: IPRATROPIUM BROM 0.5 MG/2.5ML INH SOL NEB SCH ×6 (02:29→22:23)
[2017-08-22 05:00] VITALS: BP 124/79
[2017-08-22] MEDS: HYDROcodone-ACET 5/325MG TAB PO PRN ×2 (05:45→10:15)
[2017-08-22 06:07] LABS: Basophils # (auto) 0 uL; Basophils % (auto) 0.1 % (0.0-2.0); Eosinophils # (auto) 0 uL; Lymphocytes # (auto) 0.3 uL; Lymphocytes % (auto) 1.5 % (10.0-50.0); Mean Corpuscular Hemoglobin 25.2 pg (28.0-32.0); Monocytes # (auto) 0.5 uL; Monocytes % (auto) 2.8 % (0.0-12.0); Neutrophils % (auto) 95.6 % (37.0-80.0); Nucleated Red Blood Cells % 0.1 %
[2017-08-22 06:10] LABS: Hematocrit 30.6 % (36.0-46.0); Hemoglobin 10.1 g/dL (12.2-16.2); Mean Corpuscular Hgb Conc. 32.9 g/dL (32.0-36.0); Mean Corpuscular Volume 76.6 fL (80.0-100.0); Neutrophils # (auto) 18.4 uL; Platelet Count (auto) 340 10^3/uL (140-450); White Blood Cell 19.2 10^3/uL (4.4-10.8)
[2017-08-22 06:27] LABS: Albumin 1.9 g/dL (3.4-5.0); BUN/Creatinine Ratio 43.5; Potassium 3.5 mmol/L (3.5-5.1)
[2017-08-22 06:28] LABS: Red Cell Distribution Width 20.7 % (11.8-14.3)
[2017-08-22 06:32] LABS: Bilirubin, Total 0.3 mg/dL (0.2-1.0); Total Protein 6.6 g/dL (6.4-8.2)
[2017-08-22 09:00] VITALS: BP 138/75
[2017-08-22] MEDS: PROMETHAZINE W/CODEINE 5 ML ORAL SYRUP PO PRN ×2 (10:08→16:54)
[2017-08-22] MEDS: AZITHROMYCIN 500MG/ 250ML 250 ML IV SCH (10:08)
[2017-08-22 12:30] VITALS: BP 131/73
[2017-08-22] MEDS: BOOST 8 ounces PO SCH ×3 (15:55→21:32)
[2017-08-22] MEDS: LORazepam 0.5 MG TAB PO PRN (16:24)
[2017-08-22 16:43] VITALS: BP 130/75
[2017-08-22] MEDS: SODIUM CHLORIDE 0.9% 1,000 ML IV SCH (16:54)
[2017-08-22] MEDS: cefTRIAXone 1GM/10ml IVPUSH 10 ML IV SCH (21:21)
[2017-08-22 22:32] VITALS: BP 122/86
[2017-08-23] MEDS: PROMETHAZINE W/CODEINE 5 ML ORAL SYRUP PO PRN ×3 (01:00→17:58)
[2017-08-23] MEDS: ALBUTEROL SULF 2.5 MG/0.5ML(0.5%) NEB SOLN NEB SCH ×6 (02:22→22:25)
[2017-08-23] MEDS: IPRATROPIUM BROM 0.5 MG/2.5ML INH SOL NEB SCH ×6 (02:23→22:25)
[2017-08-23] MEDS: HYDROcodone-ACET 5/325MG TAB PO PRN ×4 (05:03→16:37)
[2017-08-23 05:04] VITALS: BP 151/72
[2017-08-23 05:48] LABS: Basophils # (auto) 0 uL; Basophils % (auto) 0.1 % (0.0-2.0); Eosinophils # (auto) 0 uL; Neutrophils # (auto) 12.4 uL; White Blood Cell 13.6 10^3/uL (4.4-10.8)
[2017-08-23 05:50] LABS: Hematocrit 30.7 % (36.0-46.0); Lymphocytes # (auto) 0.7 uL; Mean Corpuscular Hemoglobin 25.1 pg (28.0-32.0); Mean Corpuscular Hgb Conc. 32.4 g/dL (32.0-36.0); Mean Corpuscular Volume 77.3 fL (80.0-100.0); Monocytes # (auto) 0.5 uL; Monocytes % (auto) 3.6 % (0.0-12.0); Neutrophils % (auto) 91.3 % (37.0-80.0); Platelet Count (auto) 297 10^3/uL (140-450); Red Blood Cells 3.97 10^6/uL (4.0-5.20)
[2017-08-23] MEDS: LORazepam 0.5 MG TAB PO PRN ×2 (06:15→12:48)
[2017-08-23] MEDS: BOOST 8 ounces PO SCH ×4 (06:15→22:18)
[2017-08-23] MEDS: SODIUM CHLORIDE 0.9% 1,000 ML IV SCH ×2 (06:16→23:29)
[2017-08-23 06:22] LABS: BUN/Creatinine Ratio 40.5; Calcium 9.6 mg/dL (8.5-10.1); Potassium 3.5 mmol/L (3.5-5.1)
[2017-08-23 09:00] VITALS: BP 144/84
[2017-08-23] MEDS: AZITHROMYCIN 500MG/ 250ML 250 ML IV SCH (09:41)
[2017-08-23 13:00] VITALS: BP 142/85
[2017-08-23] MEDS: MORPHINE SULFATE 4 MG/ML SYR/VIAL IV PRN ×2 (17:37→22:20)
[2017-08-23 22:10] VITALS: BP 140/84
[2017-08-23] MEDS: cefTRIAXone 1GM/10ml IVPUSH 10 ML IV SCH (22:18)
[2017-08-24] VITALS (7 sets, daily range): BP systolic 94–137; BP diastolic 52–80
[2017-08-24] MEDS: LORazepam 0.5 MG TAB PO PRN (01:20)
[2017-08-24] MEDS: HYDROcodone-ACET 5/325MG TAB PO PRN (01:21)
[2017-08-24] MEDS: IPRATROPIUM BROM 0.5 MG/2.5ML INH SOL NEB SCH ×4 (02:22→19:19)
[2017-08-24] MEDS: ALBUTEROL SULF 2.5 MG/0.5ML(0.5%) NEB SOLN NEB SCH ×2 (02:22→05:51)
[2017-08-24] MEDS: MORPHINE SULFATE 4 MG/ML SYR/VIAL IV PRN (04:12)
[2017-08-24] MEDS ORDERED: LABETALOL HCL 5 MG/ML ML 20ML VIAL IV ONE (05:00)
[2017-08-24] MEDS: BOOST 8 ounces PO SCH ×4 (05:12→21:02)
[2017-08-24 06:54] LABS: Basophils # (auto) 0 uL; Eosinophils # (auto) 0 uL; Nucleated Red Blood Cells % 0.1 %
[2017-08-24 06:57] LABS: Basophils % (auto) 0.1 % (0.0-2.0); Eosinophils % (auto) 0.1 % (0.0-7.0); Hematocrit 31.7 % (36.0-46.0); Lymphocytes # (auto) 0.8 uL; Lymphocytes % (auto) 3.6 % (10.0-50.0); Mean Corpuscular Hemoglobin 24.3 pg (28.0-32.0); Mean Corpuscular Hgb Conc. 31.6 g/dL (32.0-36.0); Mean Corpuscular Volume 76.9 fL (80.0-100.0); Monocytes # (auto) 0.7 uL; Monocytes % (auto) 2.9 % (0.0-12.0); Neutrophils # (auto) 21.4 uL; Neutrophils % (auto) 93.3 % (37.0-80.0); Platelet Count (auto) 303 10^3/uL (140-450); Red Blood Cells 4.12 10^6/uL (4.0-5.20); White Blood Cell 22.9 10^3/uL (4.4-10.8)
[2017-08-24 07:05] LABS: Anion Gap 10 (5-15); BUN/Creatinine Ratio 39.4; Blood Urea Nitrogen 13 mg/dL (7-18); Calcium 9.7 mg/dL (8.5-10.1); Carbon Dioxide 24 mmol/L (21-32); Chloride 103 mmol/L (98-107); GFR African American 244 mL/min; GFR Non-African American 202 mL/min; Glucose 94 mg/dL (74-106); Potassium 3.2 mmol/L (3.5-5.1); Sodium 137 mmol/L (136-145)
[2017-08-24 07:15] LABS: Red Cell Distribution Width 20.9 % (11.8-14.3)
[2017-08-24] MEDS ORDERED: DOCUSATE SOD 100 MG CAP PO PRN (07:30)
[2017-08-24] MEDS ORDERED: HYOSCYAMINE SULF 0.125 MG TAB SL PRN (07:30)
[2017-08-24] MEDS ORDERED: POTASSIUM CHLORIDE 40 MEQ, LIDOCAINE 1% (LOCAL ANESTH.) 4 ML in SODIUM CHL 0.9% 100 ML IV ONE (08:30)
[2017-08-24] MEDS: ACETAMINOPHEN 500 MG TAB PO PRN ×2 (08:30→17:26)
[2017-08-24] MEDS: VANCOMYCIN 1,250 MG in D5W 5% 250 ML IV SCH (10:00)
[2017-08-24] MEDS ORDERED: VANCOMYCIN PER PHARMACY 0 MG IV SCH (10:00)
[2017-08-24] MEDS ORDERED: LEVOFLOXACIN 500MG 100 ML IV SCH (10:00)
[2017-08-24] MEDS: LEVALBUTEROL HCL 1.25 MG/3 ML NEB IN SCH ×3 (12:00→19:19)
[2017-08-24] MEDS ORDERED: PATIENTS OWN MEDICATION NEB SCH (12:00)
[2017-08-24] MEDS: SODIUM CHLORIDE 0.9% 1,000 ML IV SCH (16:09)
[2017-08-24] MEDS: PROMETHAZINE W/CODEINE 5 ML ORAL SYRUP PO PRN (20:03)
[2017-08-24] MEDS: AZITHROMYCIN 500MG/ 250ML 250 ML IV SCH (21:24)
[2017-08-25] MEDS: IPRATROPIUM BROM 0.5 MG/2.5ML INH SOL NEB SCH ×5 (00:42→18:46)
[2017-08-25] MEDS: LEVALBUTEROL HCL 1.25 MG/3 ML NEB IN SCH ×5 (00:42→18:47)
[2017-08-25 05:00] VITALS: BP 143/75
[2017-08-25] MEDS: BOOST 8 ounces PO SCH ×4 (05:51→21:04)
[2017-08-25 06:43] LABS: Hematocrit 33.7 % (36.0-46.0); Hemoglobin 10.5 g/dL (12.2-16.2); Mean Corpuscular Hemoglobin 24.2 pg (28.0-32.0); Mean Corpuscular Hgb Conc. 31.2 g/dL (32.0-36.0); Mean Corpuscular Volume 77.6 fL (80.0-100.0); Platelet Count (auto) 297 10^3/uL (140-450); Red Blood Cells 4.34 10^6/uL (4.0-5.20); White Blood Cell 29.7 10^3/uL (4.4-10.8)
[2017-08-25 06:46] LABS: Red Cell Distribution Width 21.1 % (11.8-14.3)
[2017-08-25 06:47] LABS: Band Neutrophils % (manual) 0; Basophils % (manual) 0 (0.0-2.0); Blast Cells 0; Metamyelocytes % 0; Myelocytes % 0; Promyelocytes % 0; Reactive Lymphocytes 0
[2017-08-25 06:59] LABS: Albumin 1.7 g/dL (3.4-5.0); BUN/Creatinine Ratio 26.5; Bilirubin, Total 0.5 mg/dL (0.2-1.0); Calcium 9.2 mg/dL (8.5-10.1); Potassium 3.4 mmol/L (3.5-5.1); Total Protein 6.6 g/dL (6.4-8.2)
[2017-08-25 07:30] VITALS: BP 150/83
[2017-08-25 08:03] VITALS: BP 150/83
[2017-08-25] MEDS: AZITHROMYCIN 500MG/ 250ML 250 ML IV SCH (10:18)
[2017-08-25] MEDS: ACETAMINOPHEN 500 MG TAB PO PRN (10:35)
[2017-08-25 10:42] LABS: Eosinophils % (manual) 1 (0-7); Lymphocytes % (manual) 6 (10.0-50.0); Monocytes % (manual) 7 (0-12)
[2017-08-25] MEDS ORDERED: cefTRIAXone 1GM/10ml IVPUSH 10 ML IV ONE (11:15)
[2017-08-25 12:00] VITALS: BP 138/89
[2017-08-25] MEDS ORDERED: POTASSIUM CHLORIDE 40 MEQ, LIDOCAINE 1% (LOCAL ANESTH.) 4 ML in SODIUM CHL 0.9% 100 ML IV ONE (12:00)
[2017-08-25] MEDS: PROMETHAZINE W/CODEINE 5 ML ORAL SYRUP PO PRN ×2 (13:31→19:41)
[2017-08-25] MEDS: SODIUM CHLORIDE 0.9% 1,000 ML IV SCH (14:36)
[2017-08-25] MEDS ORDERED: ASPirin-EC 325mg tab PO ONE (16:30)
[2017-08-25] MEDS ORDERED: METOPROLOL TARTRATE 50 MG TAB PO ONE (16:30)
[2017-08-25 17:02] VITALS: BP 141/90
[2017-08-25] MEDS: LORazepam 0.5 MG TAB PO PRN (18:04)
[2017-08-25] MEDS: VANCOMYCIN 1,250 MG in D5W 5% 250 ML IV SCH (21:53)
[2017-08-25 22:02] VITALS: BP 135/67
[2017-08-26] VITALS (7 sets, daily range): BP systolic 93–130; BP diastolic 57–87
[2017-08-26] MEDS: LEVALBUTEROL HCL 1.25 MG/3 ML NEB IN SCH ×4 (00:21→19:11)
[2017-08-26] MEDS: IPRATROPIUM BROM 0.5 MG/2.5ML INH SOL NEB SCH ×4 (00:21→19:11)
[2017-08-26] MEDS: SODIUM CHLORIDE 0.9% 1,000 ML IV SCH ×2 (01:55→11:00)
[2017-08-26] MEDS ORDERED: METOPROLOL TARTRATE 1MG/1ML-5ML VIAL IV ONE (03:35)
[2017-08-26] MEDS: BOOST 8 ounces PO SCH ×4 (05:19→22:02)
[2017-08-26 05:41] LABS: Hemoglobin 9.7 g/dL (12.2-16.2)
[2017-08-26 05:44] LABS: Hematocrit 30.3 % (36.0-46.0); Mean Corpuscular Hemoglobin 24.8 pg (28.0-32.0); Mean Corpuscular Volume 77.3 fL (80.0-100.0); Platelet Count (auto) 301 10^3/uL (140-450); Red Blood Cells 3.92 10^6/uL (4.0-5.20); White Blood Cell 29.8 10^3/uL (4.4-10.8)
[2017-08-26 05:47] LABS: BUN/Creatinine Ratio 30.8; Calcium 9.2 mg/dL (8.5-10.1); Potassium 3.4 mmol/L (3.5-5.1); Red Cell Distribution Width 21.6 % (11.8-14.3)
[2017-08-26 05:48] LABS: Band Neutrophils % (manual) 0; Basophils % (manual) 0 (0.0-2.0); Eosinophils % (manual) 0 (0-7)
[2017-08-26 05:49] LABS: Blast Cells 0; Metamyelocytes % 0; Myelocytes % 0; Promyelocytes % 0; Reactive Lymphocytes 0
[2017-08-26] MEDS ORDERED: AMIODARONE HCL 900 MG in DEXTROSE 500 ML IV SCH ×4 (07:07→13:21)
[2017-08-26] MEDS ORDERED: AMIODARONE HCL 150 MG in D5W 5% 100 ML IV ONE (07:15)
[2017-08-26 07:37] LABS: Lymphocytes % (manual) 2 (10.0-50.0); Monocytes % (manual) 2 (0-12)
[2017-08-26] MEDS: LORazepam 0.5 MG TAB PO PRN (08:19)
[2017-08-26] MEDS ORDERED: METOPROLOL TARTRATE 1MG/1ML-5ML VIAL IV PRN (09:00)
[2017-08-26] MEDS: ACETAMINOPHEN/CODEINE#3 (300/30mg) TAB PO PRN (10:21)
[2017-08-26] MEDS: METOPROLOL TARTRATE 50 MG TAB PO SCH ×2 (10:22→22:01)
[2017-08-26] MEDS: cefTRIAXone 1GM/10ml IVPUSH 10 ML IV SCH (10:30)
[2017-08-26] MEDS ORDERED: IOHEXOL 300 MG/ML 100ML BOTTLE IJ ONE (16:25)
[2017-08-26] MEDS: LINEZOLID 600MG/300ML 300 ML IV SCH (18:14)
[2017-08-26] MEDS: MORPHINE SULFATE 4 MG/ML SYR/VIAL IV PRN (22:10)
[2017-08-27] MEDS: IPRATROPIUM BROM 0.5 MG/2.5ML INH SOL NEB SCH ×4 (00:24→18:47)
[2017-08-27] MEDS: LEVALBUTEROL HCL 1.25 MG/3 ML NEB IN SCH ×4 (00:24→18:47)
[2017-08-27] MEDS: MORPHINE SULFATE 4 MG/ML SYR/VIAL IV PRN ×2 (03:39→16:45)
[2017-08-27] MEDS: LINEZOLID 600MG/300ML 300 ML IV SCH ×2 (03:39→17:50)
[2017-08-27 05:00] VITALS: BP 101/57
[2017-08-27] MEDS: LORazepam 0.5 MG TAB PO PRN ×2 (05:59→22:57)
[2017-08-27] MEDS: BOOST 8 ounces PO SCH ×4 (06:09→22:00)
[2017-08-27 06:43] LABS: Basophils % (auto) 0.2 % (0.0-2.0); Hemoglobin 9.4 g/dL (12.2-16.2); Mean Corpuscular Volume 77.6 fL (80.0-100.0); Monocytes # (auto) 0.6 uL
[2017-08-27 06:47] LABS: Basophils # (auto) 0 uL; Eosinophils # (auto) 0 uL; Eosinophils % (auto) 0.2 % (0.0-7.0); Hematocrit 29.4 % (36.0-46.0); Lymphocytes # (auto) 0.7 uL; Lymphocytes % (auto) 3.7 % (10.0-50.0); Mean Corpuscular Hemoglobin 24.9 pg (28.0-32.0); Mean Corpuscular Hgb Conc. 32.1 g/dL (32.0-36.0); Monocytes % (auto) 3.1 % (0.0-12.0); Neutrophils # (auto) 18.8 uL; Neutrophils % (auto) 92.8 % (37.0-80.0); Platelet Count (auto) 290 10^3/uL (140-450); Red Blood Cells 3.78 10^6/uL (4.0-5.20); White Blood Cell 20.3 10^3/uL (4.4-10.8)
[2017-08-27 06:57] LABS: Red Cell Distribution Width 21.2 % (11.8-14.3)
[2017-08-27 07:07] LABS: Potassium 3.4 mmol/L (3.5-5.1)
[2017-08-27 07:11] LABS: Albumin 1.4 g/dL (3.4-5.0); BUN/Creatinine Ratio 27.3; Calcium 9.4 mg/dL (8.5-10.1)
[2017-08-27 07:14] LABS: Bilirubin, Total 0.2 mg/dL (0.2-1.0); Total Protein 5.8 g/dL (6.4-8.2)
[2017-08-27 09:00] VITALS: BP 119/69
[2017-08-27] MEDS: cefTRIAXone 1GM/10ml IVPUSH 10 ML IV SCH (09:43)
[2017-08-27] MEDS: METOPROLOL TARTRATE 50 MG TAB PO SCH ×2 (09:45→22:02)
[2017-08-27] MEDS: ACETAMINOPHEN/CODEINE#3 (300/30mg) TAB PO PRN ×2 (09:46→15:41)
[2017-08-27 10:40] LABS: INR 0.97 (0.9-1.15); Partial Thromboplastin Time 20.6 sec (22.64-33.71); Prothrombin Time 10.6 sec (9.37-12.3)
[2017-08-27] MEDS ORDERED: POTASSIUM CHLORIDE 40 MEQ, LIDOCAINE 1% (LOCAL ANESTH.) 4 ML in SODIUM CHL 0.9% 100 ML IV ONE (10:45)
[2017-08-27] MEDS: AMIODARONE HCL 200 MG TAB PO SCH ×2 (11:11→22:01)
[2017-08-27] MEDS ORDERED: LIDOCAINE 1% HCL (LOCAL ANESTH.) INJ 20ML MDV SC ONE (12:15)
[2017-08-27] MEDS: SODIUM CHLORIDE 0.9% 1,000 ML IV SCH (12:49)
[2017-08-27 13:00] VITALS: BP 129/74
[2017-08-27] MEDS: IPRATROPIUM BROM 0.5 MG/2.5ML INH SOL NEB PRN (16:10)
[2017-08-27 17:00] VITALS: BP 137/64
[2017-08-27] MEDS ORDERED: BACLOFEN 10 MG TAB PO ONE (17:45)
[2017-08-27 18:51] VITALS: BP 129/74
[2017-08-27 22:00] VITALS: BP 115/60
[2017-08-28] VITALS (7 sets, daily range): BP systolic 108–128; BP diastolic 54–72
[2017-08-28] MEDS: IPRATROPIUM BROM 0.5 MG/2.5ML INH SOL NEB SCH ×5 (00:19→23:28)
[2017-08-28] MEDS: LEVALBUTEROL HCL 1.25 MG/3 ML NEB IN SCH ×5 (00:19→23:28)
[2017-08-28] MEDS: MORPHINE SULFATE 4 MG/ML SYR/VIAL IV PRN ×2 (03:32→15:37)
[2017-08-28] MEDS: LINEZOLID 600MG/300ML 300 ML IV SCH ×2 (03:42→16:40)
[2017-08-28 07:24] LABS: White Blood Cell 17.9 10^3/uL (4.4-10.8)
[2017-08-28] MEDS: BOOST 8 ounces PO SCH ×4 (07:24→22:05)
[2017-08-28 07:26] LABS: Hematocrit 29.4 % (36.0-46.0); Hemoglobin 9.4 g/dL (12.2-16.2); Mean Corpuscular Hemoglobin 24.9 pg (28.0-32.0); Mean Corpuscular Volume 77.9 fL (80.0-100.0); Platelet Count (auto) 294 10^3/uL (140-450); Red Blood Cells 3.77 10^6/uL (4.0-5.20)
[2017-08-28 07:32] LABS: Albumin 1.4 g/dL (3.4-5.0); BUN/Creatinine Ratio 21.6; Bilirubin, Total 0.3 mg/dL (0.2-1.0); Potassium 3.7 mmol/L (3.5-5.1); Total Protein 5.9 g/dL (6.4-8.2)
[2017-08-28 07:43] LABS: Red Cell Distribution Width 20.9 % (11.8-14.3)
[2017-08-28 07:46] LABS: Band Neutrophils % (manual) 0; Basophils % (manual) 0 (0.0-2.0); Blast Cells 0; Metamyelocytes % 0; Myelocytes % 0; Promyelocytes % 0; Reactive Lymphocytes 0
[2017-08-28] MEDS: cefTRIAXone 1GM/10ml IVPUSH 10 ML IV SCH (09:33)
[2017-08-28] MEDS: LORazepam 0.5 MG TAB PO PRN (09:34)
[2017-08-28] MEDS: AMIODARONE HCL 200 MG TAB PO SCH ×2 (09:35→22:05)
[2017-08-28] MEDS: METOPROLOL TARTRATE 50 MG TAB PO SCH ×2 (09:35→22:05)
[2017-08-28] MEDS: SODIUM CHLORIDE 0.9% 1,000 ML IV SCH (11:00)
[2017-08-28 12:11] LABS: Eosinophils % (manual) 3 (0-7); Lymphocytes % (manual) 5 (10.0-50.0); Monocytes % (manual) 3 (0-12)
[2017-08-28] MEDS: ACETAMINOPHEN/CODEINE#3 (300/30mg) TAB PO PRN (20:08)
[2017-08-29] MEDS: LINEZOLID 600MG/300ML 300 ML IV SCH ×2 (03:50→16:31)
[2017-08-29] MEDS: IPRATROPIUM BROM 0.5 MG/2.5ML INH SOL NEB PRN (04:00)
[2017-08-29 05:44] VITALS: BP 138/66
[2017-08-29 06:57] LABS: Basophils # (auto) 0 uL; Basophils % (auto) 0.2 % (0.0-2.0); Eosinophils # (auto) 0.1 uL; Eosinophils % (auto) 0.4 % (0.0-7.0); Hematocrit 31.7 % (36.0-46.0); Hemoglobin 10.1 g/dL (12.2-16.2); Lymphocytes # (auto) 0.6 uL; Lymphocytes % (auto) 3.8 % (10.0-50.0); Mean Corpuscular Hemoglobin 24.5 pg (28.0-32.0); Mean Corpuscular Hgb Conc. 31.8 g/dL (32.0-36.0); Mean Corpuscular Volume 76.9 fL (80.0-100.0); Monocytes # (auto) 0.5 uL; Monocytes % (auto) 3.3 % (0.0-12.0); Neutrophils # (auto) 14.5 uL; Neutrophils % (auto) 92.3 % (37.0-80.0); Platelet Count (auto) 304 10^3/uL (140-450); Red Blood Cells 4.12 10^6/uL (4.0-5.20); White Blood Cell 15.7 10^3/uL (4.4-10.8)
[2017-08-29] MEDS: IPRATROPIUM BROM 0.5 MG/2.5ML INH SOL NEB SCH ×3 (06:57→18:00)
[2017-08-29] MEDS: LEVALBUTEROL HCL 1.25 MG/3 ML NEB IN SCH ×3 (06:57→18:01)
[2017-08-29] MEDS: BOOST 8 ounces PO SCH ×4 (07:04→22:19)
[2017-08-29 07:25] LABS: Red Cell Distribution Width 20.2 % (11.8-14.3)
[2017-08-29 07:30] LABS: Calcium 9.8 mg/dL (8.5-10.1); Potassium 3.8 mmol/L (3.5-5.1)
[2017-08-29 07:32] LABS: BUN/Creatinine Ratio 15.8
[2017-08-29] MEDS: LORazepam 0.5 MG TAB PO PRN ×2 (08:59→22:31)
[2017-08-29] MEDS: cefTRIAXone 1GM/10ml IVPUSH 10 ML IV SCH (08:59)
[2017-08-29] MEDS: METOPROLOL TARTRATE 50 MG TAB PO SCH ×2 (08:59→22:20)
[2017-08-29 09:00] VITALS: BP 137/69
[2017-08-29] MEDS: AMIODARONE HCL 200 MG TAB PO SCH ×2 (09:00→22:20)
[2017-08-29] MEDS ORDERED: PANTOPRAZOLE 40 MG TAB PO ONE (09:45)
[2017-08-29 13:00] VITALS: BP 120/66
[2017-08-29] MEDS: SODIUM CHLORIDE 0.9% 1,000 ML IV SCH (16:32)
[2017-08-29 17:00] VITALS: BP 108/54
[2017-08-29 20:00] VITALS: BP 135/69
[2017-08-29 22:00] VITALS: BP 135/69
[2017-08-29] MEDS: PANTOPRAZOLE 40 MG TAB PO SCH (22:21)
[2017-08-30] MEDS: LEVALBUTEROL HCL 1.25 MG/3 ML NEB IN SCH ×4 (00:33→19:26)
[2017-08-30] MEDS: IPRATROPIUM BROM 0.5 MG/2.5ML INH SOL NEB SCH ×4 (00:34→19:26)
[2017-08-30] MEDS: LINEZOLID 600MG/300ML 300 ML IV SCH (04:27)
[2017-08-30 05:21] LABS: Eosinophils # (auto) 0.1 uL; Eosinophils % (auto) 0.3 % (0.0-7.0); Lymphocytes # (auto) 0.6 uL; Monocytes # (auto) 0.6 uL
[2017-08-30 05:23] LABS: Basophils # (auto) 0 uL; Basophils % (auto) 0.2 % (0.0-2.0); Hematocrit 27.8 % (36.0-46.0); Lymphocytes % (auto) 4.3 % (10.0-50.0); Mean Corpuscular Hgb Conc. 32.4 g/dL (32.0-36.0); Mean Corpuscular Volume 77.2 fL (80.0-100.0); Neutrophils # (auto) 13.6 uL; Neutrophils % (auto) 91.2 % (37.0-80.0); Platelet Count (auto) 300 10^3/uL (140-450)
[2017-08-30 05:28] LABS: Red Cell Distribution Width 20.6 % (11.8-14.3); White Blood Cell 14.9 10^3/uL (4.4-10.8)
[2017-08-30 05:44] LABS: Albumin 1.6 g/dL (3.4-5.0); Calcium 9.1 mg/dL (8.5-10.1); Potassium 3.5 mmol/L (3.5-5.1)
[2017-08-30 05:46] LABS: BUN/Creatinine Ratio 17.1
[2017-08-30 05:47] VITALS: BP 103/56
[2017-08-30 05:49] LABS: Bilirubin, Total 0.2 mg/dL (0.2-1.0); Total Protein 5.9 g/dL (6.4-8.2)
[2017-08-30] MEDS: BOOST 8 ounces PO SCH ×4 (06:15→21:34)
[2017-08-30 08:00] VITALS: BP 119/55
[2017-08-30 09:00] VITALS: BP 119/55
[2017-08-30] MEDS ORDERED: PANTOPRAZOLE 40 MG TAB PO SCH (10:00)
[2017-08-30] MEDS: AMIODARONE HCL 200 MG TAB PO SCH ×2 (10:25→22:00)
[2017-08-30] MEDS: PANTOPRAZOLE 40 MG TAB PO SCH ×2 (10:25→21:35)
[2017-08-30] MEDS: METOPROLOL TARTRATE 50 MG TAB PO SCH ×2 (10:26→21:35)
[2017-08-30] MEDS: LORazepam 0.5 MG TAB PO PRN ×2 (10:32→21:34)
[2017-08-30] MEDS: SODIUM CHLORIDE 0.9% 1,000 ML IV SCH (11:00)
[2017-08-30 13:00] VITALS: BP 121/61
[2017-08-30 16:52] VITALS: BP 129/62
[2017-08-30] MEDS: ACETAMINOPHEN/CODEINE#3 (300/30mg) TAB PO PRN (17:13)
[2017-08-30 20:00] VITALS: BP 107/50
[2017-08-30] MEDS: LINEZOLID 600MG TABLET PO SCH (21:35)
[2017-08-31] VITALS (7 sets, daily range): BP systolic 103–141; BP diastolic 50–69
[2017-08-31] MEDS: LEVALBUTEROL HCL 1.25 MG/3 ML NEB IN SCH ×5 (01:36→19:05)
[2017-08-31] MEDS: IPRATROPIUM BROM 0.5 MG/2.5ML INH SOL NEB SCH ×5 (01:36→19:05)
[2017-08-31 05:38] LABS: Eosinophils # (auto) 0 uL; Eosinophils % (auto) 0.4 % (0.0-7.0)
[2017-08-31 05:41] LABS: Basophils # (auto) 0 uL; Basophils % (auto) 0.3 % (0.0-2.0); Hematocrit 26.2 % (36.0-46.0); Hemoglobin 8.5 g/dL (12.2-16.2); Lymphocytes # (auto) 0.6 uL; Lymphocytes % (auto) 5.3 % (10.0-50.0); Mean Corpuscular Hemoglobin 25.3 pg (28.0-32.0); Mean Corpuscular Hgb Conc. 32.5 g/dL (32.0-36.0); Mean Corpuscular Volume 78.1 fL (80.0-100.0); Monocytes # (auto) 0.5 uL; Monocytes % (auto) 4.3 % (0.0-12.0); Neutrophils % (auto) 89.7 % (37.0-80.0); Platelet Count (auto) 297 10^3/uL (140-450); Red Blood Cells 3.35 10^6/uL (4.0-5.20); White Blood Cell 12.2 10^3/uL (4.4-10.8)
[2017-08-31 05:48] LABS: Red Cell Distribution Width 20.3 % (11.8-14.3)
[2017-08-31 05:53] LABS: Potassium 3.5 mmol/L (3.5-5.1)
[2017-08-31 05:59] LABS: Albumin 1.8 g/dL (3.4-5.0); BUN/Creatinine Ratio 16.7; Bilirubin, Total 0.4 mg/dL (0.2-1.0); Calcium 9.2 mg/dL (8.5-10.1)
[2017-08-31] MEDS: BOOST 8 ounces PO SCH ×4 (06:04→21:41)
[2017-08-31] MEDS: IPRATROPIUM BROM 0.5 MG/2.5ML INH SOL NEB PRN (10:35)
[2017-08-31] MEDS: LINEZOLID 600MG TABLET PO SCH ×2 (10:42→21:39)
[2017-08-31] MEDS: METOPROLOL TARTRATE 50 MG TAB PO SCH ×2 (10:43→21:40)
[2017-08-31] MEDS: PANTOPRAZOLE 40 MG TAB PO SCH ×2 (10:43→21:37)
[2017-08-31] MEDS: LORazepam 0.5 MG TAB PO PRN ×2 (10:43→21:39)
[2017-08-31] MEDS: AMIODARONE HCL 200 MG TAB PO SCH ×2 (10:43→21:39)
[2017-08-31] MEDS: SODIUM CHLORIDE 0.9% 1,000 ML IV SCH (11:00)
[2017-08-31] MEDS: ACETAMINOPHEN/CODEINE#3 (300/30mg) TAB PO PRN ×2 (16:27→23:16)
[2017-08-31] MEDS: PRO-STAT 64 30ML PO SCH (21:41)
[2017-09-01] VITALS (7 sets, daily range): BP systolic 111–132; BP diastolic 53–75
[2017-09-01] MEDS: IPRATROPIUM BROM 0.5 MG/2.5ML INH SOL NEB SCH ×4 (00:53→18:52)
[2017-09-01] MEDS: LEVALBUTEROL HCL 1.25 MG/3 ML NEB IN SCH ×4 (00:53→18:52)
[2017-09-01] MEDS: ACETAMINOPHEN/CODEINE#3 (300/30mg) TAB PO PRN ×2 (05:46→22:02)
[2017-09-01] MEDS: BOOST 8 ounces PO SCH ×4 (05:47→21:58)
[2017-09-01] MEDS: PRO-STAT 64 30ML PO SCH ×3 (05:47→21:58)
[2017-09-01 07:56] LABS: Albumin 2.2 g/dL (3.4-5.0); Basophils # (auto) 0.1 uL; Basophils % (auto) 0.4 % (0.0-2.0); Bilirubin, Total 0.4 mg/dL (0.2-1.0); Calcium 9.7 mg/dL (8.5-10.1); Eosinophils # (auto) 0.1 uL; Eosinophils % (auto) 0.3 % (0.0-7.0); Hematocrit 31.2 % (36.0-46.0); Hemoglobin 9.8 g/dL (12.2-16.2); Lymphocytes # (auto) 0.8 uL; Lymphocytes % (auto) 4.9 % (10.0-50.0); Mean Corpuscular Hemoglobin 24.2 pg (28.0-32.0); Mean Corpuscular Hgb Conc. 31.4 g/dL (32.0-36.0); Mean Corpuscular Volume 77.2 fL (80.0-100.0); Monocytes # (auto) 0.6 uL; Monocytes % (auto) 3.6 % (0.0-12.0); Neutrophils # (auto) 15.4 uL; Neutrophils % (auto) 90.8 % (37.0-80.0); Platelet Count (auto) 294 10^3/uL (140-450); Potassium 3.9 mmol/L (3.5-5.1); Red Blood Cells 4.05 10^6/uL (4.0-5.20); Total Protein 7.7 g/dL (6.4-8.2)
[2017-09-01 07:57] LABS: Red Cell Distribution Width 20.7 % (11.8-14.3)
[2017-09-01] MEDS: LORazepam 0.5 MG TAB PO PRN ×2 (07:57→18:18)
[2017-09-01] MEDS: PANTOPRAZOLE 40 MG TAB PO SCH ×2 (10:15→21:49)
[2017-09-01] MEDS: METOPROLOL TARTRATE 50 MG TAB PO SCH ×3 (10:15→21:49)
[2017-09-01] MEDS: AMIODARONE HCL 200 MG TAB PO SCH ×2 (10:16→21:49)
[2017-09-01] MEDS: LINEZOLID 600MG TABLET PO SCH ×2 (10:43→21:49)
[2017-09-01] MEDS: IPRATROPIUM BROM 0.5 MG/2.5ML INH SOL NEB PRN (15:35)
[2017-09-01] MEDS: metroNIDAZOLE 500 MG TAB PO SCH ×2 (15:51→17:45)
[2017-09-01] MEDS: RIVAROXABAN 15 MG TAB PO SCH (17:45)
[2017-09-02] VITALS (7 sets, daily range): BP systolic 93–116; BP diastolic 47–58
[2017-09-02] MEDS: metroNIDAZOLE 500 MG TAB PO SCH ×4 (00:04→17:46)
[2017-09-02] MEDS: IPRATROPIUM BROM 0.5 MG/2.5ML INH SOL NEB SCH ×4 (00:31→18:43)
[2017-09-02] MEDS: LEVALBUTEROL HCL 1.25 MG/3 ML NEB IN SCH ×4 (00:31→18:44)
[2017-09-02] MEDS: IPRATROPIUM BROM 0.5 MG/2.5ML INH SOL NEB PRN ×2 (04:12→22:27)
[2017-09-02] MEDS: ACETAMINOPHEN/CODEINE#3 (300/30mg) TAB PO PRN ×3 (04:14→20:24)
[2017-09-02] MEDS: BOOST 8 ounces PO SCH ×4 (06:20→22:33)
[2017-09-02] MEDS: PRO-STAT 64 30ML PO SCH ×3 (06:20→22:33)
[2017-09-02 06:42] LABS: Eosinophils # (auto) 0.1 uL; Eosinophils % (auto) 0.4 % (0.0-7.0); Lymphocytes # (auto) 0.7 uL; Monocytes # (auto) 0.8 uL
[2017-09-02 06:46] LABS: Basophils # (auto) 0 uL; Basophils % (auto) 0.3 % (0.0-2.0); Hematocrit 27.3 % (36.0-46.0); Hemoglobin 8.7 g/dL (12.2-16.2); Mean Corpuscular Hgb Conc. 31.7 g/dL (32.0-36.0); Mean Corpuscular Volume 78.9 fL (80.0-100.0); Monocytes % (auto) 5.7 % (0.0-12.0); Neutrophils # (auto) 12.2 uL; Neutrophils % (auto) 88.6 % (37.0-80.0); Platelet Count (auto) 289 10^3/uL (140-450); Red Blood Cells 3.46 10^6/uL (4.0-5.20); White Blood Cell 13.8 10^3/uL (4.4-10.8)
[2017-09-02 06:49] LABS: Red Cell Distribution Width 20.7 % (11.8-14.3)
[2017-09-02 06:57] LABS: Calcium 9.3 mg/dL (8.5-10.1); Potassium 4.2 mmol/L (3.5-5.1)
[2017-09-02] MEDS: RIVAROXABAN 15 MG TAB PO SCH ×2 (08:49→17:46)
[2017-09-02] MEDS: PANTOPRAZOLE 40 MG TAB PO SCH ×2 (10:34→21:52)
[2017-09-02] MEDS: AMIODARONE HCL 200 MG TAB PO SCH ×2 (10:34→21:53)
[2017-09-02] MEDS: LORazepam 0.5 MG TAB PO PRN ×3 (10:35→23:02)
[2017-09-02] MEDS: METOPROLOL TARTRATE 50 MG TAB PO SCH ×2 (10:35→21:54)
[2017-09-02] MEDS: LINEZOLID 600MG TABLET PO SCH ×2 (10:35→21:52)
[2017-09-03] MEDS: IPRATROPIUM BROM 0.5 MG/2.5ML INH SOL NEB SCH ×3 (00:22→11:33)
[2017-09-03] MEDS: LEVALBUTEROL HCL 1.25 MG/3 ML NEB IN SCH ×3 (00:22→11:33)
[2017-09-03] MEDS: metroNIDAZOLE 500 MG TAB PO SCH ×3 (00:30→12:00)
[2017-09-03 05:00] VITALS: BP 108/53
[2017-09-03 05:40] LABS: Basophils # (auto) 0.1 uL; Eosinophils % (auto) 0.4 % (0.0-7.0); Hematocrit 26.7 % (36.0-46.0); Hemoglobin 8.5 g/dL (12.2-16.2); Mean Corpuscular Hemoglobin 24.9 pg (28.0-32.0); Mean Corpuscular Hgb Conc. 31.9 g/dL (32.0-36.0)
[2017-09-03 05:45] LABS: Eosinophils # (auto) 0 uL; Lymphocytes # (auto) 0.9 uL; Lymphocytes % (auto) 6.4 % (10.0-50.0); Mean Corpuscular Volume 78.2 fL (80.0-100.0); Monocytes # (auto) 0.5 uL; Neutrophils # (auto) 11.8 uL; Neutrophils % (auto) 88.2 % (37.0-80.0); Platelet Count (auto) 341 10^3/uL (140-450); Red Blood Cells 3.41 10^6/uL (4.0-5.20); White Blood Cell 13.3 10^3/uL (4.4-10.8)
[2017-09-03 05:55] LABS: Red Cell Distribution Width 21.1 % (11.8-14.3)
[2017-09-03 06:09] LABS: Albumin 1.9 g/dL (3.4-5.0); Bilirubin, Total 0.3 mg/dL (0.2-1.0); Calcium 9.3 mg/dL (8.5-10.1); Potassium 4.3 mmol/L (3.5-5.1); Total Protein 6.6 g/dL (6.4-8.2)
[2017-09-03] MEDS: BOOST 8 ounces PO SCH ×2 (06:19→12:00)
[2017-09-03] MEDS: PRO-STAT 64 30ML PO SCH ×2 (06:19→14:00)
[2017-09-03] MEDS: IPRATROPIUM BROM 0.5 MG/2.5ML INH SOL NEB PRN (07:10)
[2017-09-03] MEDS: RIVAROXABAN 15 MG TAB PO SCH (07:55)
[2017-09-03 09:00] VITALS: BP 106/58
[2017-09-03] MEDS: METOPROLOL TARTRATE 50 MG TAB PO SCH (09:53)
[2017-09-03] MEDS: AMIODARONE HCL 200 MG TAB PO SCH (09:53)
[2017-09-03] MEDS: LORazepam 0.5 MG TAB PO PRN (09:53)
[2017-09-03] MEDS: PANTOPRAZOLE 40 MG TAB PO SCH (09:53)
[2017-09-03] MEDS: ACETAMINOPHEN/CODEINE#3 (300/30mg) TAB PO PRN (09:54)
[2017-09-03] MEDS: LINEZOLID 600MG TABLET PO SCH (09:56)
[2017-09-03 13:00] VITALS: BP 113/57
[2017-09-03 14:32] VITALS: BP 113/57
== END 2017-09-03 15:10 | DRG 871 ==
LOC: EDBD 22:27 → ER 22:27 → TELE 22:28 → TELE-WESTW 08-21 08:24
PROVIDERS: ADMIT Nurse Practitioner Family; ATTEND Internal Medicine
PROC: 0W993ZZ Drainage of Right Pleural Cavity, Percutaneous Approach (ICD-10-PCS; principal; 2017-08-27)
DX: A40.3 Sepsis due to Streptococcus pneumoniae (principal); E43 Unspecified severe protein-calorie malnutrition; J96.01 Acute respiratory failure with hypoxia; J15.212 Pneumonia due to Methicillin resistant Staphylococcus aureus; I82.402 Acute embolism and thrombosis of unspecified deep veins of left lower extremity; J13 Pneumonia due to Streptococcus pneumoniae; J91.8 Pleural effusion in other conditions classified elsewhere; D68.59 Other primary thrombophilia; E44.0 Moderate protein-calorie malnutrition; R13.10 Dysphagia, unspecified; J44.1 Chronic obstructive pulmonary disease with (acute) exacerbation; I48.91 Unspecified atrial fibrillation; E86.0 Dehydration; D64.9 Anemia, unspecified; E11.9 Type 2 diabetes mellitus without complications; E78.5 Hyperlipidemia, unspecified; E87.6 Hypokalemia; F41.9 Anxiety disorder, unspecified; I10 Essential (primary) hypertension; I25.10 Atherosclerotic heart disease of native coronary artery without angina pectoris; I49.1 Atrial premature depolarization; K21.9 Gastro-esophageal reflux disease without esophagitis; F32.9 Major depressive disorder, single episode, unspecified; M81.0 Age-related osteoporosis without current pathological fracture; Z79.01 Long term (current) use of anticoagulants; Z79.51 Long term (current) use of inhaled steroids; Z82.49 Family history of ischemic heart disease and other diseases of the circulatory system; Z82.5 Family history of asthma and other chronic lower respiratory diseases; Z83.3 Family history of diabetes mellitus; Z87.01 Personal history of pneumonia (recurrent); Z87.440 Personal history of urinary (tract) infections; Z87.891 Personal history of nicotine dependence; Z90.710 Acquired absence of both cervix and uterus; Z68.22 Body mass index [BMI] 22.0-22.9, adult; Z88.1 Allergy status to other antibiotic agents; Z88.8 Allergy status to other drugs, medicaments and biological substances
CPT/HCPCS: 10022; 32555; 36415; 36600; 71045; 71046; 71250; 71260; 73560; 76604; 76942; 80048; 80053; 81001; 82805; 83605; 83735; 83880; 83986; 84484; 85007; 85025; 85027; 85610; 85652; 85730; 87040; 87070; 87077; 87081; 87186; 87205; 87400; 87493; 93005; 93971; 94640; 96365; 96375; 97116; 97530; J2001; J2405; J7060

== ENCOUNTER 2018-03-20 16:13 | Emergency (ER) | payer MEDICARE, MEDICAID ==
[~2018-03-20] VITALS: Ht 154.9 cm; Wt 49.9 kg
[~2018-03-20 16:13] MED LIST changes: -BUSP15TA60 PO; -MONT10TA34 PO; +MONT4CHW9 PO; -POM PO; +RANO500T2 PO; -THEO1CAP3 OR
[2018-03-20 16:25] VITALS: BP 151/73
[2018-03-20 17:13] LABS: Basophils # (auto) 0 uL; Eosinophils # (auto) 0.1 uL; Hemoglobin 9.6 g/dL (12.2-16.2); White Blood Cell 13.8 10^3/uL (4.4-10.8)
[2018-03-20 17:14] LABS: Basophils % (auto) 0.3 % (0.0-2.0); Eosinophils % (auto) 0.4 % (0.0-7.0); Hematocrit 31.2 % (36.0-46.0); Lymphocytes # (auto) 1.5 uL; Lymphocytes % (auto) 11.2 % (10.0-50.0); Mean Corpuscular Hgb Conc. 30.8 g/dL (32.0-36.0); Mean Corpuscular Volume 68.2 fL (80.0-100.0); Monocytes # (auto) 0.8 uL; Monocytes % (auto) 5.9 % (0.0-12.0); Neutrophils # (auto) 11.3 uL; Neutrophils % (auto) 82.2 % (37.0-80.0); Platelet Count (auto) 344 10^3/uL (140-450); Red Blood Cells 4.58 10^6/uL (4.0-5.20); Red Cell Distribution Width 18.4 % (11.8-14.3)
[2018-03-20 17:36] LABS: Albumin 3.5 g/dL (3.4-5.0); BUN/Creatinine Ratio 25.8; Bilirubin, Total 0.2 mg/dL (0.2-1.0); Calcium 9.3 mg/dL (8.5-10.1); Potassium 4.7 mmol/L (3.5-5.1); Total Protein 7.2 g/dL (6.4-8.2)
== END 2018-03-20 18:58 | disposition left against medical advice (07) ==
LOC: ER 16:15
DX: L02.214 Cutaneous abscess of groin (principal)
CPT/HCPCS: 36415; 80053; 85025

== ENCOUNTER 2018-03-21 06:56 | Inpatient (IN) | payer MEDICARE, MEDICAID ==
[~2018-03-21] VITALS: Ht 154.9 cm; Wt 50.3 kg
[2018-03-21 08:45] LABS: Alanine Aminotransferase 13 U/L (13-56); Aspartate Aminotransferase 14 U/L (15-37); Carbon Dioxide 23 mmol/L (21-32); GFR African American 85 mL/min; GFR Non-African American 71 mL/min; Glucose 89 mg/dL (74-106)
[2018-03-21 08:47] LABS: Alkaline Phosphatase 61 U/L (45-117); Bilirubin, Total 0.3 mg/dL (0.2-1.0); Total Protein 6.7 g/dL (6.4-8.2)
[2018-03-21 08:55] LABS: Anion Gap 9 (5-15); BUN/Creatinine Ratio 30.5; Blood Urea Nitrogen 25 mg/dL (7-18); Calcium 8.9 mg/dL (8.5-10.1); Chloride 106 mmol/L (98-107); Sodium 138 mmol/L (136-145)
[2018-03-21 08:56] LABS: Albumin 3.2 g/dL (3.4-5.0)
[2018-03-21 09:44] LABS: Hemoglobin 9.1 g/dL (12.2-16.2); Mean Corpuscular Volume 68.2 fL (80.0-100.0)
[2018-03-21 09:46] LABS: Hematocrit 29.5 % (36.0-46.0); Mean Corpuscular Hgb Conc. 30.7 g/dL (32.0-36.0); Red Blood Cells 4.32 10^6/uL (4.0-5.20); Red Cell Distribution Width 18.2 % (11.8-14.3); White Blood Cell 12.1 10^3/uL (4.4-10.8)
[2018-03-21 09:48] LABS: Platelet Count (auto) 266 10^3/uL (140-450)
[2018-03-21 09:49] LABS: Band Neutrophils % (manual) 0; Basophils % (manual) 0 (0.0-2.0); Blast Cells 0; Metamyelocytes % 0; Myelocytes % 0; Promyelocytes % 0; Reactive Lymphocytes 0
[2018-03-21 10:48] LABS: Eosinophils % (manual) 1 (0-7); Lymphocytes % (manual) 14 (10.0-50.0); Monocytes % (manual) 2 (0-12)
[2018-03-21] MEDS ORDERED: cefTRIAXone SOD 1,000 MG VL IM ONE (11:15)
[2018-03-21] MEDS ORDERED: ONDANSETRON HCL 4 MG/2 ML VIAL IV PRN (12:45)
[2018-03-21] MEDS ORDERED: cefTRIAXone 1GM/10ml IVPUSH 10 ML IV ONE (12:45)
[2018-03-21] MEDS ORDERED: methylPREDNISolone SOD SUCC 40 MG/ML VL IV ONE (12:45)
[2018-03-21] MEDS ORDERED: NITROGLYCERIN 0.4 MG SL TAB SL PRN (12:45)
[2018-03-21] MEDS ORDERED: ACETAMINOPHEN 325 MG TAB PO PRN (12:45)
[2018-03-21] MEDS ORDERED: MORPHINE SULF INJ 2 MG/ML SYRINGE 1ML IV PRN (12:45)
[2018-03-21 13:07] LABS: INR 0.93 (0.9-1.15); Partial Thromboplastin Time 20.1 sec (23.78-33.04)
[2018-03-21 13:30] VITALS: BP 133/74
[2018-03-21] MEDS ORDERED: ASPirin 81 mg TAB PO ONE (14:00)
[2018-03-21 16:41] LABS: Urine Bacteria NONE SEEN /hpf (None Seen); Urine Blood Negative /uL (Negative); Urine Specific Gravity 1.011 (1.001-1.035); Urine WBC 2 /hpf (0 - 5)
[2018-03-21 19:30] VITALS: BP 119/72
[2018-03-21 21:30] VITALS: BP 97/57
[2018-03-21] MEDS: methylPREDNISolone SOD SUCC 40 MG/ML VL IV SCH (21:45)
[2018-03-22] MEDS: IPRATROPIUM BROM 0.5 MG/2.5ML INH SOL NEB PRN ×3 (04:55→18:06)
[2018-03-22] MEDS: ALBUTEROL SULF 2.5 MG/0.5ML(0.5%) NEB SOLN NEB PRN ×3 (04:55→18:06)
[2018-03-22 05:00] VITALS: BP 131/65
[2018-03-22 05:09] LABS: Basophils # (auto) 0 uL; Eosinophils # (auto) 0 uL; Hemoglobin 9.7 g/dL (12.2-16.2); Mean Corpuscular Volume 68.4 fL (80.0-100.0); Monocytes # (auto) 0.1 uL; Monocytes % (auto) 1.3 % (0.0-12.0)
[2018-03-22 05:12] LABS: Basophils % (auto) 0.3 % (0.0-2.0); Hematocrit 31.1 % (36.0-46.0); Lymphocytes # (auto) 0.7 uL; Lymphocytes % (auto) 7.1 % (10.0-50.0); Mean Corpuscular Hemoglobin 21.3 pg (28.0-32.0); Mean Corpuscular Hgb Conc. 31.2 g/dL (32.0-36.0); Neutrophils # (auto) 9.6 uL; Neutrophils % (auto) 91.3 % (37.0-80.0); Platelet Count (auto) 330 10^3/uL (140-450); Red Blood Cells 4.55 10^6/uL (4.0-5.20); Red Cell Distribution Width 18.5 % (11.8-14.3); White Blood Cell 10.5 10^3/uL (4.4-10.8)
[2018-03-22 06:53] LABS: Albumin 3.2 g/dL (3.4-5.0); BUN/Creatinine Ratio 35.8; Bilirubin, Total 0.4 mg/dL (0.2-1.0); Calcium 9.2 mg/dL (8.5-10.1); Potassium 4.8 mmol/L (3.5-5.1); Total Protein 6.6 g/dL (6.4-8.2)
[2018-03-22 09:00] VITALS: BP 122/58
[2018-03-22] MEDS: methylPREDNISolone SOD SUCC 40 MG/ML VL IV SCH ×2 (09:44→21:24)
[2018-03-22] MEDS: cefTRIAXone 1GM/10ml IVPUSH 10 ML IV SCH (09:44)
[2018-03-22 13:00] VITALS: BP 149/74
[2018-03-22 17:00] VITALS: BP 124/68
[2018-03-23 05:00] VITALS: BP 118/59
[2018-03-23] MEDS: IPRATROPIUM BROM 0.5 MG/2.5ML INH SOL NEB PRN (07:10)
[2018-03-23] MEDS: ALBUTEROL SULF 2.5 MG/0.5ML(0.5%) NEB SOLN NEB PRN (07:10)
[2018-03-23 09:00] VITALS: BP 115/57
[2018-03-23] MEDS ORDERED: ALBUTEROL SULF 2.5 MG/0.5ML(0.5%) NEB SOLN NEB PRN (10:15)
[2018-03-23] MEDS ORDERED: ASPIRIN-DIPYRIDAMOLE (25/200MG) CAPSULE PO SCH (11:08)
[2018-03-23] MEDS: cefTRIAXone 1GM/10ml IVPUSH 10 ML IV SCH (11:14)
[2018-03-23] MEDS: methylPREDNISolone SOD SUCC 40 MG/ML VL IV SCH ×2 (11:14→21:36)
[2018-03-23 13:00] VITALS: BP 128/71
[2018-03-23] MEDS: ALBUTEROL SULF 2.5 MG/0.5ML(0.5%) NEB SOLN NEB SCH ×3 (14:01→22:05)
[2018-03-23] MEDS: IPRATROPIUM BROM 0.5 MG/2.5ML INH SOL NEB SCH ×3 (14:02→22:05)
[2018-03-23] MEDS: ACETYLCYSTEINE 10 %(100MG/ML) SOL 4ML NEB SCH ×2 (14:02→22:05)
[2018-03-23 17:00] VITALS: BP 122/56
[2018-03-23] MEDS ORDERED: PANTOPRAZOLE 40 MG TAB PO ONE (18:45)
[2018-03-23] MEDS: ASPIRIN-DIPYRIDAMOLE (25/200MG) CAPSULE PO SCH (21:33)
[2018-03-23 22:00] VITALS: BP 105/60
[2018-03-24 05:00] VITALS: BP 107/55
[2018-03-24 05:58] LABS: Basophils # (auto) 0 uL; Eosinophils # (auto) 0 uL; Lymphocytes # (auto) 0.5 uL
[2018-03-24 06:01] LABS: Basophils % (auto) 0.2 % (0.0-2.0); Hematocrit 28.7 % (36.0-46.0); Lymphocytes % (auto) 4.1 % (10.0-50.0); Mean Corpuscular Hemoglobin 21.3 pg (28.0-32.0); Mean Corpuscular Hgb Conc. 31.3 g/dL (32.0-36.0); Monocytes # (auto) 0.2 uL; Monocytes % (auto) 2.1 % (0.0-12.0); Neutrophils # (auto) 11.1 uL; Neutrophils % (auto) 93.6 % (37.0-80.0); Platelet Count (auto) 288 10^3/uL (140-450); Red Blood Cells 4.22 10^6/uL (4.0-5.20); Red Cell Distribution Width 18.1 % (11.8-14.3); White Blood Cell 11.8 10^3/uL (4.4-10.8)
[2018-03-24 06:18] LABS: Calcium 8.9 mg/dL (8.5-10.1); Potassium 4.4 mmol/L (3.5-5.1)
[2018-03-24 06:22] LABS: Albumin 2.9 g/dL (3.4-5.0); BUN/Creatinine Ratio 37.1; Bilirubin, Total 0.2 mg/dL (0.2-1.0); Total Protein 5.9 g/dL (6.4-8.2)
[2018-03-24] MEDS: IPRATROPIUM BROM 0.5 MG/2.5ML INH SOL NEB SCH ×2 (06:41→10:21)
[2018-03-24] MEDS: ALBUTEROL SULF 2.5 MG/0.5ML(0.5%) NEB SOLN NEB SCH ×2 (06:41→10:21)
[2018-03-24] MEDS: ACETYLCYSTEINE 10 %(100MG/ML) SOL 4ML NEB SCH (06:41)
[2018-03-24 08:28] VITALS: BP 107/55
[2018-03-24 09:00] VITALS: BP 108/62
[2018-03-24] MEDS ORDERED: PANTOPRAZOLE 40 MG TAB PO SCH (10:00)
[2018-03-24] MEDS: cefTRIAXone 1GM/10ml IVPUSH 10 ML IV SCH (10:13)
[2018-03-24] MEDS: ASPIRIN-DIPYRIDAMOLE (25/200MG) CAPSULE PO SCH (10:16)
[2018-03-24] MEDS: methylPREDNISolone SOD SUCC 40 MG/ML VL IV SCH (10:17)
[2018-03-24 11:43] VITALS: BP 108/62
== END 2018-03-24 12:49 | disposition home or self-care (01) | DRG 602 ==
LOC: ER 06:59 → TELE 07:00 → TELE-CENTR 18:19
PROVIDERS: ADMIT Internal Medicine; ATTEND Internal Medicine
DX: L02.214 Cutaneous abscess of groin (principal); J96.20 Acute and chronic respiratory failure, unspecified whether with hypoxia or hypercapnia; J44.1 Chronic obstructive pulmonary disease with (acute) exacerbation; E44.1 Mild protein-calorie malnutrition; I25.10 Atherosclerotic heart disease of native coronary artery without angina pectoris; I11.9 Hypertensive heart disease without heart failure; E11.9 Type 2 diabetes mellitus without complications; D64.9 Anemia, unspecified; M54.9 Dorsalgia, unspecified; I48.91 Unspecified atrial fibrillation; Z82.49 Family history of ischemic heart disease and other diseases of the circulatory system; Z82.5 Family history of asthma and other chronic lower respiratory diseases; Z88.1 Allergy status to other antibiotic agents; Z88.8 Allergy status to other drugs, medicaments and biological substances; Z85.3 Personal history of malignant neoplasm of breast; Z87.891 Personal history of nicotine dependence; Z90.710 Acquired absence of both cervix and uterus; Z99.81 Dependence on supplemental oxygen; Z90.49 Acquired absence of other specified parts of digestive tract; Z90.13 Acquired absence of bilateral breasts and nipples; Z68.21 Body mass index [BMI] 21.0-21.9, adult
CPT/HCPCS: 36415; 71046; 76881; 80053; 81001; 83880; 84484; 85007; 85025; 85027; 85610; 85730; 87077; 87081; 87186; 87205; 93005; 94640; 94667; 94668; 96374; 96375; 96376; J0696

== ENCOUNTER 2018-04-14 20:13 | Emergency (ER) | payer MEDICARE, MEDICAID ==
[~2018-04-14] VITALS: Ht 152.4 cm; Wt 49.9 kg
[2018-04-14 20:29] VITALS: BP 125/74
[2018-04-14 21:40] LABS: Basophils # (auto) 0 uL; Neutrophils # (auto) 12.1 uL; White Blood Cell 13.4 10^3/uL (4.4-10.8)
[2018-04-14 21:42] LABS: Basophils % (auto) 0.3 % (0.0-2.0); Eosinophils # (auto) 0 uL; Eosinophils % (auto) 0.4 % (0.0-7.0); Hematocrit 26.9 % (36.0-46.0); Hemoglobin 8.5 g/dL (12.2-16.2); Lymphocytes # (auto) 0.7 uL; Lymphocytes % (auto) 5.2 % (10.0-50.0); Mean Corpuscular Hemoglobin 21.2 pg (28.0-32.0); Mean Corpuscular Hgb Conc. 31.6 g/dL (32.0-36.0); Mean Corpuscular Volume 67.1 fL (80.0-100.0); Monocytes # (auto) 0.5 uL; Monocytes % (auto) 3.9 % (0.0-12.0); Neutrophils % (auto) 90.2 % (37.0-80.0); Nucleated Red Blood Cells % 0.1 %; Platelet Count (auto) 325 10^3/uL (140-450); Red Blood Cells 4.01 10^6/uL (4.0-5.20); Red Cell Distribution Width 18.8 % (11.8-14.3)
[2018-04-14 21:55] LABS: INR 0.97 (0.9-1.15); Partial Thromboplastin Time 29.6 sec (23.78-33.04); Prothrombin Time 10.4 sec (9.27-12.13)
[2018-04-14 22:02] LABS: Alanine Aminotransferase 15 U/L (13-56); Albumin 3.3 g/dL (3.4-5.0); Alkaline Phosphatase 73 U/L (45-117); Anion Gap 6 (5-15); Aspartate Aminotransferase 16 U/L (15-37); BUN/Creatinine Ratio 14.3; Bilirubin, Total 0.6 mg/dL (0.2-1.0); Blood Urea Nitrogen 12 mg/dL (7-18); Calcium 9.4 mg/dL (8.5-10.1); Carbon Dioxide 23 mmol/L (21-32); Chloride 107 mmol/L (98-107); GFR African American 83 mL/min; GFR Non-African American 69 mL/min; Glucose 98 mg/dL (74-106); Magnesium 2.1 mg/dL (1.6-2.6); Potassium 3.9 mmol/L (3.5-5.1); Sodium 136 mmol/L (136-145); Total Protein 6.7 g/dL (6.4-8.2)
== END 2018-04-15 00:04 | disposition left against medical advice (07) ==
LOC: ER 20:13 → EDBD 20:13 → ER 04-15 00:04
DX: R06.02 Shortness of breath (principal); Z53.21 Procedure and treatment not carried out due to patient leaving prior to being seen by health care provider
CPT/HCPCS: 36415; 71045; 80053; 83735; 83880; 84484; 85025; 85610; 85730; 93005

== ENCOUNTER 2019-05-19 07:34 | Inpatient (IN) | payer MEDICARE, MEDICAID ==
[~2019-05-19] VITALS: Ht 154.9 cm; Wt 57.0 kg
[2019-05-19] MEDS ORDERED: SODIUM CHLORIDE 0.9% 1,000 ML IV ONE (07:44)
[2019-05-19] MEDS ORDERED: ASPirin 81 mg TAB PO ONE (07:45)
[2019-05-19] MEDS ORDERED: MORPHINE SULF INJ 2 MG/ML SYRINGE 1ML IV ONE (08:00)
[2019-05-19] MEDS ORDERED: ONDANSETRON HCL 4 MG/2 ML VIAL IV ONE (08:00)
[2019-05-19 08:08] LABS: Eosinophils # (auto) 0.1 uL; Hematocrit 28.7 % (36.0-46.0); Hemoglobin 8.6 g/dL (12.2-16.2); Monocytes # (auto) 0.3 uL; White Blood Cell 5.3 10^3/uL (4.4-10.8)
[2019-05-19 08:09] LABS: Basophils # (auto) 0.1 uL; Basophils % (auto) 2.1 % (0.0-2.0); Eosinophils % (auto) 2.3 % (0.0-7.0); Lymphocytes # (auto) 0.5 uL; Lymphocytes % (auto) 10.1 % (10.0-50.0); Mean Corpuscular Hemoglobin 19.1 pg (28.0-32.0); Mean Corpuscular Volume 63.6 fL (80.0-100.0); Monocytes % (auto) 6.4 % (0.0-12.0); Neutrophils # (auto) 4.2 uL; Neutrophils % (auto) 79.1 % (37.0-80.0); Platelet Count (auto) 278 10^3/uL (140-450); Red Blood Cells 4.51 10^6/uL (4.0-5.20)
[2019-05-19 08:12] LABS: Red Cell Distribution Width 20.2 % (11.8-14.3)
[2019-05-19] MEDS ORDERED: AMIODARONE HCL 150 MG in D5W 5% 100 ML IV ONE (08:15)
[2019-05-19 08:23] LABS: INR 0.97 (0.9-1.15); Partial Thromboplastin Time 22.9 sec (23.64-32.05)
[2019-05-19 08:25] LABS: Alanine Aminotransferase 11 U/L (13-56); Albumin 3.1 g/dL (3.4-5.0); Anion Gap 8 (5-15); Aspartate Aminotransferase 10 U/L (15-37); Blood Urea Nitrogen 15 mg/dL (7-18); Calcium 8.3 mg/dL (8.5-10.1); Carbon Dioxide 22 mmol/L (21-32); Chloride 109 mmol/L (98-107); GFR African American 73 mL/min; GFR Non-African American 60 mL/min; Glucose 87 mg/dL (74-106); Potassium 3.8 mmol/L (3.5-5.1); Sodium 139 mmol/L (136-145)
[2019-05-19 08:29] LABS: Alkaline Phosphatase 61 U/L (45-117); Bilirubin, Total 0.5 mg/dL (0.2-1.0); Total Protein 6.4 g/dL (6.4-8.2)
[2019-05-19] MEDS ORDERED: ALBUTEROL SULF 2.5 MG/0.5ML(0.5%) NEB SOLN NEB PRN (09:30)
[2019-05-19] MEDS ORDERED: ACETAMINOPHEN 325 MG TAB PO PRN (09:30)
[2019-05-19] MEDS ORDERED: MORPHINE SULF INJ 2 MG/ML SYRINGE 1ML IV PRN ×2 (09:30)
[2019-05-19] MEDS: ASPirin 81 mg TAB PO SCH (10:00)
[2019-05-19] MEDS: ALBUTEROL SULF 2.5 MG/0.5ML(0.5%) NEB SOLN NEB SCH ×4 (10:02→21:56)
[2019-05-19] MEDS: ASPIRIN-DIPYRIDAMOLE (25/200MG) CAPSULE PO SCH (10:31)
[2019-05-19] MEDS: PANTOPRAZOLE 40 MG TAB PO SCH ×2 (10:32→20:58)
[2019-05-19] MEDS: RANOLAZINE ER 500 MG TAB PO SCH (10:32)
[2019-05-19 10:36] VITALS: BP 105/99
[2019-05-19 11:06] LABS: Urine Bacteria NONE SEEN /hpf (None Seen); Urine Blood Negative /uL (Negative); Urine Hyaline Cast FEW /lpf (0 - 2); Urine Mucus FEW (None Seen); Urine Specific Gravity 1.011 (1.001-1.035); Urine WBC 12 /hpf (0 - 5)
[2019-05-19] MEDS ORDERED: AMIODARONE HCL 900 MG in DEXTROSE 500 ML IV SCH (14:21)
[2019-05-19] MEDS: ACETAMINOPHEN/CODEINE#3 (300/30mg) TAB PO SCH ×2 (14:54→21:00)
[2019-05-20] MEDS: ALBUTEROL SULF 2.5 MG/0.5ML(0.5%) NEB SOLN NEB SCH ×6 (02:20→22:10)
[2019-05-20] MEDS: ACETAMINOPHEN/CODEINE#3 (300/30mg) TAB PO SCH ×3 (05:49→21:31)
[2019-05-20 06:06] LABS: BUN/Creatinine Ratio 13.2; Calcium 8.8 mg/dL (8.5-10.1); Magnesium 2.3 mg/dL (1.6-2.6)
[2019-05-20] MEDS ORDERED: ADENOSINE 42 MG in GIVE UN-DILUTED 0 ML IV STA (08:22)
[2019-05-20 10:33] VITALS: BP 137/69
[2019-05-20] MEDS: ASPirin 81 mg TAB PO SCH (11:33)
[2019-05-20] MEDS: ASPIRIN-DIPYRIDAMOLE (25/200MG) CAPSULE PO SCH (11:33)
[2019-05-20] MEDS: RANOLAZINE ER 500 MG TAB PO SCH (11:33)
[2019-05-20] MEDS: PANTOPRAZOLE 40 MG TAB PO SCH ×2 (11:33→21:31)
--- NOTE | 2019-05-20 12:35 | NUR ---
Telemetry admit from ER DAVID INGRAM admitted to Telemetry unit after SBAR received. Patient oriented to primary RN, unit, room, bed, and unit policies regarding patient care and visiting hours. Patient now on continuous telemetry monitoring, tele box # 73 and telemetry reading on arrival to unit is SR 80. Patient placed on bedside oxygen, weighed by bedscale and encouraged to call if they need something. All questions and concerns addressed, patient verbalized understanding.
[2019-05-20 13:00] VITALS: BP 126/57
[2019-05-20] MEDS ORDERED: ALBUAER3 IN (13:52)
[2019-05-20] MEDS ORDERED: BUSP15TA60 PO (13:52)
[2019-05-20 16:32] VITALS: BP 109/54
--- NOTE | 2019-05-20 19:16 | NUR ---
Opening Shift Note Assumed care of patient, awake and alert x4. No S/S of distress/SOB or pain. Instructed on POC and to call for assist PRN. Call light is within reach, side rails up x2, bed is in lowest position. All questions and concerns answered, will continue to monitor for changes Q1hr and PRN.
--- NOTE | 2019-05-20 19:34 | NUR ---
Patient complained of chest pain. Patient showed the chest pain was located substernally and across the lower aspect of the chest and stated it was 8/0-10, and it radiated to the back and lower jaw. An EKG completed and Vital Signs taken: BP-139/67, HR- 78, oxygen 98% on 2L/min via nasal cannula, RR- 18, T- 97.7, Pain- 8/0-10. Nitro 0.4 mg given at 19:45. Pain level was 8/0-10, BP- 139/67. 19:50- BP: 114/72 and the patient's pain level was then 8/0-10. Second nitro given. 19:55- Patient is no longer complaining of chest pain, pain level is 0/0-10, BP is 96/51. Will page Dr. Perez and continue to monitor patient.
[2019-05-20] MEDS: NITROGLYCERIN 0.4 MG SL TAB SL PRN ×2 (19:45→19:50)
--- NOTE | 2019-05-20 20:03 | NUR ---
Paged Dr. Perez and left a message to call back.
--- NOTE | 2019-05-20 20:15 | NUR ---
Dr. Perez called back, no new orders received. EKG is in hard chart. Will continue to monitor patient.
--- NOTE | 2019-05-20 20:30 | NUR ---
EKG read and signed by Jazmin ADDISON. After viewing EKG he stated until cleared by Cardio, new order received to place Nitrodur patch one time. Will carry out and continue to monitor patient. Addendum: 05/20/19 at 2304 by VINH FIGUEROA RN RN 0.4 mg/hr for nitrodur dosage.
[2019-05-20] MEDS ORDERED: NITROGLYCERIN 0.4MG/HR TOPICAL PATCH TD ONE (21:00)
[2019-05-20 21:35] VITALS: BP 139/67
[2019-05-20 21:37] VITALS: BP 139/67
[2019-05-21] VITALS (8 sets, daily range): BP systolic 108–125; BP diastolic 55–66
[2019-05-21] MEDS: ONDANSETRON HCL 4 MG/2 ML VIAL IV PRN ×2 (02:12→20:19)
[2019-05-21] MEDS: ALBUTEROL SULF 2.5 MG/0.5ML(0.5%) NEB SOLN NEB SCH ×6 (02:29→22:14)
[2019-05-21 07:03] LABS: Basophils # (auto) 0 uL; Basophils % (auto) 0.8 % (0.0-2.0); Eosinophils # (auto) 0.3 uL; Mean Corpuscular Hemoglobin 19.2 pg (28.0-32.0); Monocytes # (auto) 0.4 uL; Platelet Count (auto) 234 10^3/uL (140-450)
[2019-05-21 07:08] LABS: Eosinophils % (auto) 6.3 % (0.0-7.0); Hematocrit 26.6 % (36.0-46.0); Lymphocytes # (auto) 0.7 uL; Mean Corpuscular Hgb Conc. 30.1 g/dL (32.0-36.0); Mean Corpuscular Volume 63.8 fL (80.0-100.0); Monocytes % (auto) 7.8 % (0.0-12.0); Neutrophils # (auto) 3.3 uL; Neutrophils % (auto) 70.1 % (37.0-80.0); Red Blood Cells 4.16 10^6/uL (4.0-5.20); White Blood Cell 4.8 10^3/uL (4.4-10.8)
[2019-05-21 07:24] LABS: Albumin 3.1 g/dL (3.4-5.0); Calcium 8.9 mg/dL (8.5-10.1); Potassium 4.1 mmol/L (3.5-5.1)
[2019-05-21 07:25] LABS: Red Cell Distribution Width 20.6 % (11.8-14.3)
[2019-05-21 07:29] LABS: BUN/Creatinine Ratio 14.1; Bilirubin, Total 0.4 mg/dL (0.2-1.0); Total Protein 6.3 g/dL (6.4-8.2)
--- NOTE | 2019-05-21 07:30 | NUR ---
Opening Shift Note Assumed care of patient, awake and alert, oriented x4 and verbally responsive. Respiratory even and unlabored. No S/S of distress/SOB or pain. Skin is warm and dry to touch. Instructed on POC and to call for assist PRN, will continue to monitor for changes Q1hr and PRN.
--- NOTE | 2019-05-21 07:45 | NUR ---
Spoke to Dr. Pappas will give a stress test result around 12 PM, will notify dr. ePrez.
[2019-05-21] MEDS: ASPIRIN-DIPYRIDAMOLE (25/200MG) CAPSULE PO SCH (09:32)
[2019-05-21] MEDS: ASPirin 81 mg TAB PO SCH (09:32)
[2019-05-21] MEDS: PANTOPRAZOLE 40 MG TAB PO SCH ×2 (09:32→22:04)
[2019-05-21] MEDS: RANOLAZINE ER 500 MG TAB PO SCH (09:32)
--- NOTE | 2019-05-21 10:32 | NUR ---
Dr. Perez at bedside discussed with patient , received new orders , noted and carried it out.
[2019-05-21] MEDS: DOCUSATE SOD 100 MG CAP PO PRN (10:38)
[2019-05-21] MEDS: ACETAMINOPHEN/CODEINE#3 (300/30mg) TAB PO SCH ×3 (14:00→22:05)
--- NOTE | 2019-05-21 19:23 | NUR ---
Opening Shift Note Assumed care of patient, awake and alert x4. No S/S of distress/SOB or pain. Instructed on POC and to call for assist PRN. Call light is within reach, side rails up x2, bed is in lowest position, brakes are locked. All questions and concerns answered, will continue to monitor for changes Q1hr and PRN.
--- NOTE | 2019-05-21 22:50 | NUR ---
IV insertion IV access obtained, via clean sterile technique by inserting 24 gauge catheter at the RFA after 1 attempt(s). IV secured properly. No trauma to site. Patient tolerated well.
[2019-05-22] MEDS: ALBUTEROL SULF 2.5 MG/0.5ML(0.5%) NEB SOLN NEB SCH ×6 (02:36→22:06)
[2019-05-22 05:00] VITALS: BP 130/66
[2019-05-22 06:16] LABS: Basophils # (auto) 0.1 uL; Basophils % (auto) 1.5 % (0.0-2.0); Eosinophils # (auto) 0.3 uL; Eosinophils % (auto) 6.4 % (0.0-7.0); Hematocrit 27.5 % (36.0-46.0); Hemoglobin 8.3 g/dL (12.2-16.2); Lymphocytes # (auto) 0.7 uL; Lymphocytes % (auto) 16.5 % (10.0-50.0); Mean Corpuscular Hemoglobin 19.2 pg (28.0-32.0); Mean Corpuscular Volume 64.1 fL (80.0-100.0); Monocytes # (auto) 0.4 uL; Monocytes % (auto) 8.8 % (0.0-12.0); Neutrophils # (auto) 2.8 uL; Neutrophils % (auto) 66.8 % (37.0-80.0); Nucleated Red Blood Cells % 0.1 %; Platelet Count (auto) 220 10^3/uL (140-450); White Blood Cell 4.2 10^3/uL (4.4-10.8)
[2019-05-22 06:18] LABS: Red Cell Distribution Width 20.1 % (11.8-14.3)
[2019-05-22] MEDS: ACETAMINOPHEN/CODEINE#3 (300/30mg) TAB PO SCH ×3 (06:29→21:45)
[2019-05-22] MEDS: DOCUSATE SOD 100 MG CAP PO PRN (06:29)
[2019-05-22 06:33] LABS: Albumin 3.2 g/dL (3.4-5.0); Calcium 9.1 mg/dL (8.5-10.1); Potassium 3.5 mmol/L (3.5-5.1)
[2019-05-22 06:35] LABS: BUN/Creatinine Ratio 11.5
[2019-05-22 06:38] LABS: Bilirubin, Total 0.4 mg/dL (0.2-1.0); Total Protein 6.4 g/dL (6.4-8.2)
[2019-05-22 07:56] VITALS: BP 129/62
[2019-05-22 09:19] VITALS: BP 126/62
[2019-05-22] MEDS: ASPIRIN-DIPYRIDAMOLE (25/200MG) CAPSULE PO SCH (09:54)
[2019-05-22] MEDS: ASPirin 81 mg TAB PO SCH (09:54)
[2019-05-22] MEDS: PANTOPRAZOLE 40 MG TAB PO SCH ×2 (09:54→21:44)
[2019-05-22] MEDS: RANOLAZINE ER 500 MG TAB PO SCH (09:54)
[2019-05-22 12:00] VITALS: BP 112/65
[2019-05-22] MEDS ORDERED: GOLYTELY 4L KIT PO ONE (12:00)
--- NOTE | 2019-05-22 12:46 | NUR ---
Nutrition Assessment Notes please see attached link for complete assessment Est. Needs BW 54 [id number] kcal (25-30 kcal/kgBW), 54-65 gms pro (1.0-1.2 gms/kgBW). Will continue to monitor pertinent labs and reassess nutrient need prn Addendum: 05/22/19 at [address] Amended: Links added.
[2019-05-22 17:00] VITALS: BP 132/71
--- NOTE | 2019-05-22 19:37 | NUR ---
RECEIVED PATIENT FROM DAY SHIFT RN. PATIENT RESTING IN BED. NO S/S OF DISTRESS NOTED. DENIED PAIN FOR NOW. PATIENT DRINKING GOLYTELY FOR BOWEL PREPARATION FOR PROCEDURE TOMORROW. PATIENT UNDERSTOOD NPO AFTER MIDNIGHT. POC INSTRUCTED AND ENCOURAGED PATIENT TO CALL FOR ELECTRICAL INSPECTOR IF NEEDED. BED IN LOWEST POSITION WITH SIDE RAILS UP X 2. CALL [facility] WITHIN REACH. ALARM ON. CONTINUE TO MONITOR FOR CHANGES Q1H AND PRN. .
--- NOTE | 2019-05-22 21:45 | NUR ---
SCHEDULE PAIN MEDICATION GIVEN FOR PAIN @ 12/23. CONTINUE TO MONITOR.
[2019-05-22 22:00] VITALS: BP 116/83
--- NOTE | 2019-05-23 00:34 | NUR ---
FOOD AND WATER REMOVED FROM BEDSIDE. PATIENT UNDERSTOOD NPO FROM NOW ON. CONTINUE TO MONITOR.
[2019-05-23] MEDS: ALBUTEROL SULF 2.5 MG/0.5ML(0.5%) NEB SOLN NEB SCH ×6 (02:16→22:02)
--- NOTE | 2019-05-23 02:45 | NUR ---
PATIENT SLEEPING. NO S/S OF DISTRESS NOTED. CONTINUE CARE.
[2019-05-23] MEDS ORDERED: GOLYTELY 4L KIT PO ONE (04:00)
--- NOTE | 2019-05-23 04:33 | NUR ---
PATIENT STATED GOLYTELY NOW. LAST BM YELLOW BUT NOT CLEAR. CONTINUE TO MONITOR.
[2019-05-23 05:00] VITALS: BP 120/80
[2019-05-23] MEDS: ONDANSETRON HCL 4 MG/2 ML VIAL IV PRN (05:07)
[2019-05-23] MEDS: ACETAMINOPHEN/CODEINE#3 (300/30mg) TAB PO SCH ×3 (06:20→21:41)
[2019-05-23 07:07] LABS: Albumin 3.5 g/dL (3.4-5.0); Calcium 9.1 mg/dL (8.5-10.1); Potassium 3.7 mmol/L (3.5-5.1)
[2019-05-23 07:11] LABS: BUN/Creatinine Ratio 9.9; Bilirubin, Total 0.4 mg/dL (0.2-1.0); Total Protein 6.7 g/dL (6.4-8.2)
[2019-05-23 07:21] LABS: Basophils # (auto) 0.1 uL; Hemoglobin 8.5 g/dL (12.2-16.2); Lymphocytes # (auto) 0.9 uL; Monocytes # (auto) 0.3 uL; Neutrophils # (auto) 2.8 uL; Nucleated Red Blood Cells % 0.1 %; White Blood Cell 4.4 10^3/uL (4.4-10.8)
[2019-05-23 07:23] LABS: Basophils % (auto) 1.6 % (0.0-2.0); Eosinophils # (auto) 0.3 uL; Eosinophils % (auto) 7.9 % (0.0-7.0); Hematocrit 27.5 % (36.0-46.0); Lymphocytes % (auto) 19.8 % (10.0-50.0); Mean Corpuscular Hemoglobin 19.4 pg (28.0-32.0); Mean Corpuscular Volume 62.6 fL (80.0-100.0); Monocytes % (auto) 6.7 % (0.0-12.0); Platelet Count (auto) 250 10^3/uL (140-450)
[2019-05-23 07:25] LABS: Red Cell Distribution Width 20.3 % (11.8-14.3)
[2019-05-23 07:28] LABS: INR 0.98 (0.9-1.15); Partial Thromboplastin Time 24.8 sec (23.64-32.05)
--- NOTE | 2019-05-23 07:30 | NUR ---
Opening Shift Note Assumed care of patient, awake and alert, oriented x 4 and verbally responsive. Respiratory even and unlabored. No S/S of distress/SOB or pain. Skin is warm and dry to touch. NPO for a procedure , patient tolerated well. Instructed on POC and to call for assist PRN, will continue to monitor for changes Q1hr and PRN.
[2019-05-23 09:00] VITALS: BP 124/70
[2019-05-23] MEDS: RANOLAZINE ER 500 MG TAB PO SCH (09:34)
[2019-05-23] MEDS: ASPirin 81 mg TAB PO SCH (09:34)
[2019-05-23] MEDS: ASPIRIN-DIPYRIDAMOLE (25/200MG) CAPSULE PO SCH (09:34)
[2019-05-23] MEDS: PANTOPRAZOLE 40 MG TAB PO SCH ×2 (09:34→21:41)
[2019-05-23] MEDS ORDERED: SODIUM CHLORIDE LOCK 10 ML ONE (10:24)
[2019-05-23] MEDS ORDERED: LIDOCAINE VISCOUS 2% 15ML UD ONE (10:24)
[2019-05-23] MEDS ORDERED: diphenhdrAMINE HCL 50 MG/1 ML VL ONE (10:25)
--- NOTE | 2019-05-23 10:45 | NUR ---
Patient left to OR.
[2019-05-23] MEDS: MIDAZOLAM HCL 5 MG/ML-1ML VIAL ONE ×4 (11:00→11:23)
[2019-05-23] MEDS: fentaNYL CITRATE 100 MCG/2 ML VL ONE ×3 (11:00→11:20)
[2019-05-23] MEDS ORDERED: fentaNYL CITRATE 100 MCG/2 ML VL ONE (11:38)
[2019-05-23] MEDS ORDERED: MIDAZOLAM HCL 5 MG/ML-1ML VIAL ONE (11:38)
--- NOTE | 2019-05-23 12:35 | NUR ---
Patient back from OR, respiratory even and unlabored. Skin is warm and dry to touch. Patient is having lunch now. Denied any pain, will continue to monitor.
[2019-05-23 13:00] VITALS: BP 117/64
[2019-05-23 17:00] VITALS: BP 140/69
--- NOTE | 2019-05-23 17:55 | NUR ---
assessment Patient is a 83 year old female who is alert and oriented. Patients cognitive abilities are intact. Prior to admission patient lived home with family and functioned with assistance. Per patient she will return home to her prior living arrangements post discharge and family will transport her home. Patients PCP is Dr Natanael Perez. Patient informed me she was admitted for elevated heart rate. Patient informed me she feels safe returning home on discharge. Patient has 02 and a fww for home use. Patient has no post discharge needs at this time. I informed patient she has a right to speak to a manager social services regarding all care. I informed patient she has a right to participate in any and all discharge planning. Patient has a POA and advanced directive. Patient verbalized understanding and agreed to discharge plan. Addendum: 05/23/19 at 1757 by Rosanne MALDONADO Amended: Links added.
--- NOTE | 2019-05-23 19:35 | NUR ---
RECEIVED PATIENT FROM DAY SHIFT RN. PATIENT RESTING IN BED. NO S/S OF DISTRESS NOTED. DENIED PAIN FOR NOW. POC INSTRUCTED AND ENCOURAGED PATIENT TO CALL FOR FORM PRESS OPERATOR IF NEEDED. BED IN LOWEST POSITION WITH SIDE RAILS UP X 2. CALL [facility] WITHIN REACH. ALARM ON. CONTINUE TO MONITOR FOR CHANGES Q1H AND PRN. .
--- NOTE | 2019-05-23 21:41 | NUR ---
PATIENT DENIED PAIN FOR NOW, BUT STILL LIKE TO HAVE SCHEDULED PAIN MEDIATION. MEDICATED PATIENT ORDERED. PATIENT SWALLOWED WELL. NO S/S OF ASPIRATION NOTED. CONTINUE TO MONITOR.
[2019-05-23 21:43] VITALS: BP 129/59
[2019-05-24] VITALS (11 sets, daily range): BP systolic 113–161; BP diastolic 56–71
--- NOTE | 2019-05-24 00:19 | NUR ---
REPORT GIVEN TO ROS SAM. NO S/S OF DISTRESS NOTED.
--- NOTE | 2019-05-24 00:19 | NUR ---
Received report from Flavia SAM. No S/S of distress noted. Will continue to monitor every hour and as needed.
[2019-05-24] MEDS: ALBUTEROL SULF 2.5 MG/0.5ML(0.5%) NEB SOLN NEB SCH ×6 (02:15→22:08)
[2019-05-24] MEDS: ACETAMINOPHEN/CODEINE#3 (300/30mg) TAB PO SCH ×3 (06:15→21:48)
[2019-05-24 06:25] LABS: Basophils # (auto) 0 uL; Eosinophils # (auto) 0.2 uL; Hemoglobin 7.5 g/dL (12.2-16.2); Mean Corpuscular Volume 63.9 fL (80.0-100.0); Monocytes # (auto) 0.4 uL; Neutrophils # (auto) 3.1 uL
[2019-05-24 06:27] LABS: Basophils % (auto) 0.8 % (0.0-2.0); Eosinophils % (auto) 4.9 % (0.0-7.0); Hematocrit 24.5 % (36.0-46.0); Lymphocytes # (auto) 0.8 uL; Lymphocytes % (auto) 17.3 % (10.0-50.0); Mean Corpuscular Hemoglobin 19.6 pg (28.0-32.0); Mean Corpuscular Hgb Conc. 30.7 g/dL (32.0-36.0); Monocytes % (auto) 7.9 % (0.0-12.0); Neutrophils % (auto) 69.1 % (37.0-80.0); Platelet Count (auto) 191 10^3/uL (140-450); Red Blood Cells 3.83 10^6/uL (4.0-5.20); White Blood Cell 4.5 10^3/uL (4.4-10.8)
[2019-05-24 06:29] LABS: Red Cell Distribution Width 20.5 % (11.8-14.3)
[2019-05-24 06:42] LABS: Albumin 2.8 g/dL (3.4-5.0); Calcium 8.4 mg/dL (8.5-10.1); Potassium 3.5 mmol/L (3.5-5.1)
[2019-05-24 06:47] LABS: BUN/Creatinine Ratio 8.8; Bilirubin, Total 0.4 mg/dL (0.2-1.0); Total Protein 5.5 g/dL (6.4-8.2)
--- NOTE | 2019-05-24 08:00 | NUR ---
Morning note patient resting in bed with even and unlabored respirations, no distress noted. Instructed patient on POC, fall precautions and to call for assistance as needed. Patient verbalized understanding. Fall precautions in place with call light within reach. Will continue to monitor q1hr & PRN.
--- NOTE | 2019-05-24 08:25 | NUR ---
was at bedside - Dr. Perez Orders received and read back to verify.
[2019-05-24] MEDS: ASPirin 81 mg TAB PO SCH (10:00)
[2019-05-24] MEDS: AMIODARONE HCL 200 MG TAB PO SCH ×2 (10:04→21:48)
[2019-05-24] MEDS: PANTOPRAZOLE 40 MG TAB PO SCH ×2 (10:04→21:48)
[2019-05-24] MEDS: ASPIRIN-DIPYRIDAMOLE (25/200MG) CAPSULE PO SCH (10:05)
[2019-05-24] MEDS: RANOLAZINE ER 500 MG TAB PO SCH (10:05)
--- NOTE | 2019-05-24 11:44 | NUR ---
was at bedside - Dr. Vernon
--- NOTE | 2019-05-24 11:46 | NUR ---
Nutrition Follow-up Notes: Wt.: 57.0 kg Pt was with MD at bedside. 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 pt with no distress noted currently on 2 gm na diet with adequate PO of > 75% x 3 per RN doc Est. Needs BW 54 [id number] kcal (25-30 kcal/kgBW), 54-65 gms pro (1.0-1.2 gms/kgBW). Will continue to monitor pertinent labs and reassess nutrient need prn Labs: CA 8.4 L, ALB 2.8 L. 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 GI: Pt had 1 BM yesterday per RN doc PES: Altered nutrition related lab values r/t current/chronic medical condition aeb mild hypoalb Will continue to monitor PO intake, skin status, pertinent labs and weight trend. F/u in 3 to 5 days. Rec.: 1.) continue current plan of care.
--- NOTE | 2019-05-24 12:31 | NUR ---
Blood transfusion started per MD order Patient has been educated on the blood transfusion, and educated on blood transfusion reactions to report. Patient verbalized understanding. Respirations even and unlabored, no distress noted.
--- NOTE | 2019-05-24 12:47 | NUR ---
Blood transfusion continues Vital signs are stable, respirations are even and nonlabored, no distress noted. Patient denies any S/S of an adverse blood transfusion reaction.Will continue to monitor q1hr and PRN.
--- NOTE | 2019-05-24 13:30 | NUR ---
Blood transfusion continues Respirations are even and unlabored, no distress noted. Patient denies any S/S of an adverse blood transfusion reaction.Will continue to monitor q1hr and PRN.
--- NOTE | 2019-05-24 16:15 | NUR ---
Blood transfusion ended Patient tolerated well. Patient denies s/s of blood transfusion reaction. Respirations even and unlabored, no distress noted. Will continue to monitor q1hr & PRN.
--- NOTE | 2019-05-24 17:12 | NUR ---
Patient resting in bed with even and unlabored respirations Patient denies s/s of blood transfusion reaction. No distress noted. Will continue to monitor q1hr & PRN.
--- NOTE | 2019-05-24 18:36 | NUR ---
Closing note Patient resting in bed with even and unlabored respirations, no distress noted. Patient denies s/s of blood transfusion reaction. Fall precautions in place with call light within reach.
--- NOTE | 2019-05-24 19:02 | NUR ---
Care endorsed to CECY Alejandro.
--- NOTE | 2019-05-24 19:22 | NUR ---
RECEIVED PATIENT FROM DAY SHIFT RN. PATIENT RESTING IN BED. NO S/S OF DISTRESS NOTED. DENIED PAIN FOR NOW. POC INSTRUCTED AND ENCOURAGED PATIENT TO CALL FOR FIRE PREVENTION CAPTAIN IF NEEDED. BED IN LOWEST POSITION WITH SIDE RAILS UP X 2. CALL [facility] WITHIN REACH. ALARM ON. CONTINUE TO MONITOR FOR CHANGES Q1H AND PRN. .
--- NOTE | 2019-05-24 21:49 | NUR ---
SCHEDULED ORAL MEDICATIONS GIVEN ORDERED. SCHEDULE PAIN MEDICATION GIVEN FOR PAIN @ 11/22. PATIENT SWALLOWED WELL. NO S/S OF ASPIRATION NOTED. CONTINUE TO MONITOR.
--- NOTE | 2019-05-25 01:50 | NUR ---
PATIENT SLEEPING. NO S/S OF DISTRESS NOTED. CONTINUE CARE.
[2019-05-25] MEDS: ALBUTEROL SULF 2.5 MG/0.5ML(0.5%) NEB SOLN NEB SCH ×4 (02:12→14:10)
[2019-05-25 04:45] VITALS: BP 102/59
[2019-05-25 05:32] LABS: Eosinophils # (auto) 0.3 uL; Hemoglobin 9.5 g/dL (12.2-16.2); Monocytes # (auto) 0.4 uL; Platelet Count (auto) 189 10^3/uL (140-450)
[2019-05-25 05:35] LABS: Basophils # (auto) 0 uL; Basophils % (auto) 0.9 % (0.0-2.0); Eosinophils % (auto) 5.2 % (0.0-7.0); Hematocrit 29.7 % (36.0-46.0); Lymphocytes % (auto) 19.4 % (10.0-50.0); Mean Corpuscular Hemoglobin 21.3 pg (28.0-32.0); Mean Corpuscular Hgb Conc. 31.9 g/dL (32.0-36.0); Monocytes % (auto) 8.6 % (0.0-12.0); Neutrophils # (auto) 3.4 uL; Neutrophils % (auto) 65.9 % (37.0-80.0); Red Blood Cells 4.44 10^6/uL (4.0-5.20); White Blood Cell 5.1 10^3/uL (4.4-10.8)
[2019-05-25 05:43] LABS: Red Cell Distribution Width 23.3 % (11.8-14.3)
[2019-05-25 05:48] LABS: Potassium 3.7 mmol/L (3.5-5.1)
[2019-05-25 05:53] LABS: Calcium 8.7 mg/dL (8.5-10.1)
[2019-05-25] MEDS: ACETAMINOPHEN/CODEINE#3 (300/30mg) TAB PO SCH ×2 (06:15→14:56)
--- NOTE | 2019-05-25 07:33 | NUR ---
OPENING SHIFT NOTE: PATIENT ASLEEP, RESTING IN BED. RESPIRATIONS EVEN AND UNLABORED. BED IS IN LOWEST LOCKED POSITION. FLOORS FREE OF CLUTTER. CALL LIGHT WITHIN REACH. WILL CONTINUE TO MONITOR.
[2019-05-25] MEDS: AMIODARONE HCL 200 MG TAB PO SCH (08:25)
[2019-05-25] MEDS: ASPIRIN-DIPYRIDAMOLE (25/200MG) CAPSULE PO SCH (08:25)
[2019-05-25] MEDS: ASPirin 81 mg TAB PO SCH (08:25)
[2019-05-25] MEDS: RANOLAZINE ER 500 MG TAB PO SCH (08:25)
[2019-05-25] MEDS: PANTOPRAZOLE 40 MG TAB PO SCH (08:25)
[2019-05-25 08:40] VITALS: BP 102/59
[2019-05-25 09:00] VITALS: BP 118/61
[2019-05-25 12:57] VITALS: BP 115/71
--- NOTE | 2019-05-25 15:40 | NUR ---
PATIENT DISCHARGED HOME: ALL EDUCATION MATERIALS GIVEN TO THE PATIENT, INSTRUCTED ON NEW PRESCRIPTIONS AND FOLLOW UP APPOINTMENTS. IV'S DISCONTINUED, MANUAL PRESSURE APPLIED. TELE BOX RETURNED TO CARDIO UNIT. PATIENT TAKEN DOWN TO PRIVATE AUTO VIA WHEELCHAIR WITHOUT INCIDENCE.
== END 2019-05-25 15:40 | disposition home or self-care (01) | DRG 308 ==
LOC: EDBD 07:34 → ER 07:36 → TELE 07:37 → TELE-WESTW 05-20 12:03
PROVIDERS: ADMIT Internal Medicine; ATTEND Internal Medicine
PROC: 0DBL8ZZ Excision of Transverse Colon, Via Natural or Artificial Opening Endoscopic (ICD-10-PCS; 2019-05-23)
PROC: 0W3P8ZZ Control Bleeding in Gastrointestinal Tract, Via Natural or Artificial Opening Endoscopic (ICD-10-PCS; principal; 2019-05-23 10:55)
PROC: 0DBK8ZZ Excision of Ascending Colon, Via Natural or Artificial Opening Endoscopic (ICD-10-PCS; 2019-05-23 10:55)
PROC: 30233N1 Transfusion of Nonautologous Red Blood Cells into Peripheral Vein, Percutaneous Approach (ICD-10-PCS; 2019-05-24)
DX: I48.91 Unspecified atrial fibrillation (principal); K55.21 Angiodysplasia of colon with hemorrhage; E44.0 Moderate protein-calorie malnutrition; I24.9 Acute ischemic heart disease, unspecified; D64.9 Anemia, unspecified; I10 Essential (primary) hypertension; J44.9 Chronic obstructive pulmonary disease, unspecified; E78.5 Hyperlipidemia, unspecified; F32.9 Major depressive disorder, single episode, unspecified; I25.10 Atherosclerotic heart disease of native coronary artery without angina pectoris; R94.31 Abnormal electrocardiogram [ECG] [EKG]; K44.9 Diaphragmatic hernia without obstruction or gangrene; Z88.8 Allergy status to other drugs, medicaments and biological substances; I25.2 Old myocardial infarction; K63.5 Polyp of colon; Z82.61 Family history of arthritis; Z82.5 Family history of asthma and other chronic lower respiratory diseases; Z83.3 Family history of diabetes mellitus; Z79.82 Long term (current) use of aspirin
CPT/HCPCS: 36415; 43255; 45384; 71045; 78452; 80048; 80053; 81001; 82270; 83605; 83735; 83880; 84484; 85025; 85610; 85730; 86850; 86900; 86901; 86920; 87040; 87081; 93005; 93017; 93306; 94640; 96361; 96365; 96375; G0378; J0153; J2250; J2405; J7060

== ENCOUNTER 2020-04-21 10:02 | Inpatient (IN) | payer MEDICARE, MEDICAID ==
[~2020-04-21] VITALS: Ht 162.6 cm; Wt 60.0 kg
[~2020-04-21 10:02] MED LIST changes: -ALBU0.08 HHN; +ALBUAER3 IN; +BUSP15TA60 PO; -FLUT250M2 INH; -IPR002IS HHN; -MONT4CHW9 PO
[2020-04-21 11:29] LABS: Albumin 3.4 g/dL (3.4-5.0); Anion Gap 5 (5-15); Blood Urea Nitrogen 15 mg/dL (7-18); Calcium 9.2 mg/dL (8.5-10.1); Carbon Dioxide 25 mmol/L (21-32); Chloride 109 mmol/L (98-107); Glucose 85 mg/dL (74-106); Magnesium 2.5 mg/dL (1.6-2.6); Potassium 3.4 mmol/L (3.5-5.1); Sodium 139 mmol/L (136-145)
[2020-04-21 11:35] LABS: Alanine Aminotransferase 13 U/L (13-56); Alkaline Phosphatase 65 U/L (45-117); Aspartate Aminotransferase 13 U/L (15-37); BUN/Creatinine Ratio 18.8; Bilirubin, Total 0.7 mg/dL (0.2-1.0); GFR African American 87 mL/min; GFR Non-African American 72 mL/min; Total Protein 6.5 g/dL (6.4-8.2)
[2020-04-21] MEDS ORDERED: SODIUM CHLORIDE 0.9% 1,000 ML IVB ONE (12:00)
[2020-04-21] MEDS ORDERED: SODIUM CHLORIDE 0.9% 1,000 ML IV ONE (12:00)
[2020-04-21 12:52] LABS: Urine Bacteria NONE SEEN /hpf (None Seen); Urine Blood Negative /uL (Negative); Urine Specific Gravity 1.013 (1.001-1.035); Urine WBC <1 /hpf (0 - 5)
[2020-04-21 12:54] LABS: Basophils # (auto) 0 10 ^3/uL (0-0.2); Basophils % (auto) 0.1 % (0.0-2.0); Eosinophils # (auto) 0 10 ^3/uL (0-0.8); Eosinophils % (auto) 0.2 % (0.0-7.0); Hematocrit 46.1 % (36.0-46.0); Hemoglobin 14.6 g/dL (12.2-16.2); Lymphocytes # (auto) 0.8 10 ^3/uL (0.4-5.4); Lymphocytes % (auto) 4.3 % (10.0-50.0); Mean Corpuscular Hemoglobin 28.2 pg (28.0-32.0); Mean Corpuscular Hgb Conc. 31.6 g/dL (32.0-36.0); Mean Corpuscular Volume 89.2 fL (80.0-100.0); Monocytes # (auto) 0.7 10 ^3/uL (0-1.3); Monocytes % (auto) 3.8 % (0.0-12.0); Neutrophils # (auto) 17.8 10 ^3/uL (1.6-8.6); Neutrophils % (auto) 91.6 % (37.0-80.0); Platelet Count (auto) 160 10^3/uL (140-450); Red Blood Cells 5.17 10^6/uL (4.0-5.20); Red Cell Distribution Width 15.2 % (11.8-14.3); White Blood Cell 19.4 10^3/uL (4.4-10.8)
[2020-04-21 12:58] LABS: Partial Thromboplastin Time 20.7 sec (23.0-31.2)
[2020-04-21] MEDS ORDERED: FUROSEMIDE 20 MG/2 ML VIAL IV ONE (14:00)
[2020-04-21] MEDS ORDERED: AZITHROMYCIN 500MG/ 250ML 250 ML IV ONE (14:00)
[2020-04-21] MEDS ORDERED: cefTRIAXone 1GM/50ML D5W 50 ML IV ONE (14:00)
[2020-04-21] MEDS ORDERED: POTASSIUM EFFERVESENT TAB 25 MEQ PO ONE (14:00)
[2020-04-21] MEDS ORDERED: MORPHINE SULF INJ 2 MG/ML SYRINGE 1ML IV PRN ×2 (14:45)
[2020-04-21] MEDS ORDERED: NITROGLYCERIN 0.4 MG SL TAB SL PRN (14:45)
[2020-04-21] MEDS ORDERED: ACETAMINOPHEN 500 MG TAB PO PRN (14:45)
[2020-04-21] MEDS ORDERED: ONDANSETRON HCL 4 MG/2 ML VIAL IV PRN (14:45)
[2020-04-21] MEDS: IPRATROPIUM BROM 0.5 MG/2.5ML INH SOL NEB SCH (18:38)
[2020-04-21] MEDS: ALBUTEROL SULF 2.5 MG/0.5ML(0.5%) NEB SOLN NEB SCH (18:38)
[2020-04-21 19:26] VITALS: BP 101/48
[2020-04-21 20:00] VITALS: BP 101/48
[2020-04-21] MEDS: BUDESONIDE (INHALATION) 0.5 MG/2 ML NEB NEB SCH (23:49)
[2020-04-22 08:00] VITALS: BP 132/72
[2020-04-22 08:52] LABS: Basophils # (auto) 0.1 10 ^3/uL (0-0.2); Basophils % (auto) 0.5 % (0.0-2.0); Eosinophils # (auto) 0.1 10 ^3/uL (0-0.8); Eosinophils % (auto) 0.5 % (0.0-7.0); Hematocrit 44.8 % (36.0-46.0); Hemoglobin 14.4 g/dL (12.2-16.2); Lymphocytes # (auto) 0.8 10 ^3/uL (0.4-5.4); Lymphocytes % (auto) 5.6 % (10.0-50.0); Mean Corpuscular Hemoglobin 27.7 pg (28.0-32.0); Mean Corpuscular Hgb Conc. 32.1 g/dL (32.0-36.0); Mean Corpuscular Volume 86.1 fL (80.0-100.0); Monocytes # (auto) 0.5 10 ^3/uL (0-1.3); Monocytes % (auto) 3.2 % (0.0-12.0); Neutrophils % (auto) 90.2 % (37.0-80.0); Platelet Count (auto) 189 10^3/uL (140-450); Red Cell Distribution Width 15.1 % (11.8-14.3); White Blood Cell 14.4 10^3/uL (4.4-10.8)
[2020-04-22 09:00] VITALS: BP 132/72
[2020-04-22 09:05] LABS: BUN/Creatinine Ratio 20.3; Calcium 9.3 mg/dL (8.5-10.1); Potassium 4.1 mmol/L (3.5-5.1)
[2020-04-22] MEDS: ALBUTEROL SULF 2.5 MG/0.5ML(0.5%) NEB SOLN NEB SCH ×3 (09:21→18:27)
[2020-04-22] MEDS: IPRATROPIUM BROM 0.5 MG/2.5ML INH SOL NEB SCH ×3 (09:21→18:27)
[2020-04-22] MEDS: BUDESONIDE (INHALATION) 0.5 MG/2 ML NEB NEB SCH ×2 (09:21→18:27)
[2020-04-22] MEDS: FAMOTIDINE 20 MG TAB PO SCH (09:51)
[2020-04-22] MEDS: cefTRIAXone 1GM/50ML D5W 50 ML IV SCH (09:51)
[2020-04-22] MEDS: AZITHROMYCIN 500MG/ 250ML 250 ML IV SCH (09:51)
[2020-04-22] MEDS: HYDROcodone-ACET 5/325MG TAB PO PRN (11:22)
[2020-04-22 14:37] VITALS: BP 135/76
[2020-04-22 16:51] VITALS: BP 109/48
[2020-04-22] MEDS ORDERED: methylPREDNISolone SOD SUCC 40 MG/ML VL IV ONE (17:00)
[2020-04-22 20:00] VITALS: BP 105/56
[2020-04-22 22:09] VITALS: BP 105/56
[2020-04-23] MEDS: IPRATROPIUM BROM 0.5 MG/2.5ML INH SOL NEB SCH ×4 (04:24→18:34)
[2020-04-23] MEDS: ALBUTEROL SULF 2.5 MG/0.5ML(0.5%) NEB SOLN NEB SCH ×4 (04:24→18:34)
[2020-04-23 05:00] VITALS: BP 132/74
[2020-04-23 06:09] LABS: Basophils # (auto) 0 10 ^3/uL (0-0.2); Basophils % (auto) 0.5 % (0.0-2.0); Eosinophils # (auto) 0 10 ^3/uL (0-0.8); Eosinophils % (auto) 0.3 % (0.0-7.0); Hemoglobin 14.5 g/dL (12.2-16.2); Lymphocytes # (auto) 0.5 10 ^3/uL (0.4-5.4); Lymphocytes % (auto) 5.5 % (10.0-50.0); Mean Corpuscular Hemoglobin 27.9 pg (28.0-32.0); Mean Corpuscular Hgb Conc. 32.9 g/dL (32.0-36.0); Mean Corpuscular Volume 84.9 fL (80.0-100.0); Monocytes # (auto) 0.1 10 ^3/uL (0-1.3); Monocytes % (auto) 1.5 % (0.0-12.0); Neutrophils # (auto) 7.8 10 ^3/uL (1.6-8.6); Neutrophils % (auto) 92.2 % (37.0-80.0); Platelet Count (auto) 186 10^3/uL (140-450); Red Blood Cells 5.19 10^6/uL (4.0-5.20); Red Cell Distribution Width 14.8 % (11.8-14.3); White Blood Cell 8.5 10^3/uL (4.4-10.8)
[2020-04-23 06:27] LABS: Albumin 2.9 g/dL (3.4-5.0); Calcium 9.5 mg/dL (8.5-10.1); Potassium 4.3 mmol/L (3.5-5.1)
[2020-04-23 06:30] LABS: BUN/Creatinine Ratio 23.4; Bilirubin, Total 0.5 mg/dL (0.2-1.0); Total Protein 6.8 g/dL (6.4-8.2)
[2020-04-23] MEDS: BUDESONIDE (INHALATION) 0.5 MG/2 ML NEB NEB SCH ×2 (06:55→18:34)
[2020-04-23 09:00] VITALS: BP 102/52
[2020-04-23] MEDS: methylPREDNISolone SOD SUCC 40 MG/ML VL IV SCH (10:49)
[2020-04-23] MEDS: cefTRIAXone 1GM/50ML D5W 50 ML IV SCH (10:49)
[2020-04-23] MEDS: FAMOTIDINE 20 MG TAB PO SCH (10:50)
[2020-04-23] MEDS: AZITHROMYCIN 500MG/ 250ML 250 ML IV SCH (13:11)
[2020-04-23] MEDS: HYDROcodone-ACET 5/325MG TAB PO PRN (16:37)
[2020-04-23 17:00] VITALS: BP 108/67
[2020-04-23 22:00] VITALS: BP 99/61
[2020-04-24 05:00] VITALS: BP 108/58
[2020-04-24] MEDS: IPRATROPIUM BROM 0.5 MG/2.5ML INH SOL NEB SCH ×2 (06:27→12:20)
[2020-04-24] MEDS: BUDESONIDE (INHALATION) 0.5 MG/2 ML NEB NEB SCH (06:27)
[2020-04-24] MEDS: ALBUTEROL SULF 2.5 MG/0.5ML(0.5%) NEB SOLN NEB SCH ×2 (06:27→12:20)
[2020-04-24] MEDS: cefTRIAXone 1GM/50ML D5W 50 ML IV SCH (08:56)
[2020-04-24 09:01] VITALS: BP 117/59
[2020-04-24] MEDS: FAMOTIDINE 20 MG TAB PO SCH (10:32)
[2020-04-24] MEDS: AZITHROMYCIN 500MG/ 250ML 250 ML IV SCH (10:32)
[2020-04-24] MEDS: methylPREDNISolone SOD SUCC 40 MG/ML VL IV SCH (10:32)
[2020-04-24 13:00] VITALS: BP 148/70
[2020-04-24] MEDS: HYDROcodone-ACET 5/325MG TAB PO PRN (13:20)
[2020-04-24 14:42] VITALS: BP 113/56
== END 2020-04-24 15:50 | disposition home or self-care (01) | DRG 190 ==
LOC: ER 10:02 → EDBD 10:02 → TELE 10:03 → TELE-EAST 18:35 → TELE-CENTR 04-22 15:13
PROVIDERS: ADMIT Nurse Practitioner Acute Care; ATTEND Internal Medicine
DX: J44.1 Chronic obstructive pulmonary disease with (acute) exacerbation (principal); J18.9 Pneumonia, unspecified organism; E44.0 Moderate protein-calorie malnutrition; R65.10 Systemic inflammatory response syndrome (SIRS) of non-infectious origin without acute organ dysfunction; J96.10 Chronic respiratory failure, unspecified whether with hypoxia or hypercapnia; J44.0 Chronic obstructive pulmonary disease with (acute) lower respiratory infection; E87.6 Hypokalemia; E78.5 Hyperlipidemia, unspecified; I10 Essential (primary) hypertension; Z68.22 Body mass index [BMI] 22.0-22.9, adult; Z20.828 Contact with and (suspected) exposure to other viral communicable diseases; Z79.899 Other long term (current) drug therapy; Z90.49 Acquired absence of other specified parts of digestive tract; Z90.710 Acquired absence of both cervix and uterus; Z90.89 Acquired absence of other organs; Z82.61 Family history of arthritis; Z83.3 Family history of diabetes mellitus; Z82.5 Family history of asthma and other chronic lower respiratory diseases; Z82.49 Family history of ischemic heart disease and other diseases of the circulatory system; I25.10 Atherosclerotic heart disease of native coronary artery without angina pectoris; R77.8 Other specified abnormalities of plasma proteins
CPT/HCPCS: 36415; 71045; 80048; 80053; 81001; 83605; 83735; 84443; 84484; 85025; 85610; 85730; 87040; 87081; 87426; 87804; 93005; 94640; 96361; 96365; 96367; 97116; 97530; G0378; J0696; J2405

== ENCOUNTER 2020-08-09 15:44 | Inpatient (IN) | payer MEDICARE, MEDICAID ==
[~2020-08-09] VITALS: Ht 154.9 cm; Wt 58.1 kg
[2020-08-09 17:00] LABS: Basophils # (auto) 0.1 10 ^3/uL (0-0.2); Basophils % (auto) 0.3 % (0.0-2.0); Eosinophils # (auto) 0 10 ^3/uL (0-0.8); Hematocrit 44.1 % (36.0-46.0); Hemoglobin 14.4 g/dL (12.2-16.2); Lymphocytes # (auto) 0.2 10 ^3/uL (0.4-5.4); Lymphocytes % (auto) 1.2 % (10.0-50.0); Mean Corpuscular Hemoglobin 27.8 pg (28.0-32.0); Mean Corpuscular Hgb Conc. 32.5 g/dL (32.0-36.0); Mean Corpuscular Volume 85.4 fL (80.0-100.0); Monocytes # (auto) 0.5 10 ^3/uL (0-1.3); Monocytes % (auto) 2.8 % (0.0-12.0); Neutrophils # (auto) 17.3 10 ^3/uL (1.6-8.6); Neutrophils % (auto) 95.7 % (37.0-80.0); Platelet Count (auto) 170 10^3/uL (140-450); Red Blood Cells 5.17 10^6/uL (4.0-5.20); Red Cell Distribution Width 14.7 % (11.8-14.3); White Blood Cell 18.1 10^3/uL (4.4-10.8)
[2020-08-09 17:16] LABS: Albumin 3.8 g/dL (3.4-5.0); Blood Urea Nitrogen 13 mg/dL (7-18); Calcium 9.8 mg/dL (8.5-10.1); Chloride 106 mmol/L (98-107); Potassium 4.7 mmol/L (3.5-5.1); Sodium 136 mmol/L (136-145)
[2020-08-09 17:21] LABS: Alanine Aminotransferase 17 U/L (13-56); Alkaline Phosphatase 59 U/L (45-117); Anion Gap 6 (5-15); Aspartate Aminotransferase 28 U/L (15-37); BUN/Creatinine Ratio 13.8; Bilirubin, Total 0.8 mg/dL (0.2-1.0); Carbon Dioxide 24 mmol/L (21-32); GFR African American 72 mL/min; GFR Non-African American 60 mL/min; Glucose 109 mg/dL (74-106); Total Protein 7.5 g/dL (6.4-8.2)
[2020-08-09] MEDS ORDERED: methylPREDNISolone SOD SUCC 125 MG/2 ML VL IV ONE (19:15)
[2020-08-09] MEDS ORDERED: MORPHINE SULF INJ 2 MG/ML SYRINGE 1ML IV PRN (20:45)
[2020-08-09] MEDS ORDERED: cefTRIAXone 1GM/50ML D5W 50 ML IV ONE (20:45)
[2020-08-09] MEDS ORDERED: NITROGLYCERIN 0.4 MG SL TAB SL PRN (20:45)
[2020-08-09] MEDS ORDERED: TEMAZEPAM 15 MG CAP PO PRN (20:45)
[2020-08-09] MEDS: FAMOTIDINE 20 MG TAB PO SCH (21:49)
[2020-08-09] MEDS: MONTELUKAST SODIUM 10 MG TAB PO SCH (21:49)
[2020-08-10] MEDS: ALBUTEROL SULF 2.5 MG/0.5ML(0.5%) NEB SOLN NEB SCH ×4 (01:15→18:09)
[2020-08-10 04:43] VITALS: BP 104/49
[2020-08-10] MEDS: IPRATROPIUM BROM 0.5 MG/2.5ML INH SOL NEB SCH ×3 (06:00→18:09)
[2020-08-10 08:00] VITALS: BP 122/51
[2020-08-10] MEDS: cefTRIAXone 1GM/50ML D5W 50 ML IV SCH (08:51)
[2020-08-10] MEDS: RANOLAZINE ER 500 MG TAB PO SCH (09:54)
[2020-08-10] MEDS: FAMOTIDINE 20 MG TAB PO SCH (09:54)
[2020-08-10] MEDS: ENOXAPARIN SOD 40 MG/0.4 ML SYRINGE SC SCH (09:54)
[2020-08-10] MEDS: ASPIRIN-DIPYRIDAMOLE (25/200MG) CAPSULE PO SCH (10:00)
[2020-08-10 10:42] LABS: Potassium 4.3 mmol/L (3.5-5.1)
[2020-08-10 10:44] LABS: Basophils # (auto) 0 10 ^3/uL (0-0.2); Eosinophils # (auto) 0 10 ^3/uL (0-0.8); Hematocrit 44.1 % (36.0-46.0); Hemoglobin 14.2 g/dL (12.2-16.2); Lymphocytes # (auto) 0.4 10 ^3/uL (0.4-5.4); Lymphocytes % (auto) 2.6 % (10.0-50.0); Mean Corpuscular Hemoglobin 27.6 pg (28.0-32.0); Mean Corpuscular Hgb Conc. 32.3 g/dL (32.0-36.0); Mean Corpuscular Volume 85.4 fL (80.0-100.0); Monocytes # (auto) 0.2 10 ^3/uL (0-1.3); Monocytes % (auto) 1.4 % (0.0-12.0); Platelet Count (auto) 216 10^3/uL (140-450); Red Blood Cells 5.16 10^6/uL (4.0-5.20); Red Cell Distribution Width 14.7 % (11.8-14.3); White Blood Cell 14.6 10^3/uL (4.4-10.8)
[2020-08-10] MEDS: methylPREDNISolone SOD SUCC 40 MG/ML VL IV SCH ×2 (13:29→22:14)
[2020-08-10] MEDS ORDERED: ESOM1CAP4 PO (18:09)
[2020-08-10] MEDS ORDERED: FLUT1SPR5 EACHNOSTRI (18:09)
[2020-08-10] MEDS ORDERED: PRE5T PO (18:10)
[2020-08-10] MEDS ORDERED: ISO20T PO (18:10)
[2020-08-10] MEDS ORDERED: THEO1TAB6 PO (18:10)
[2020-08-10] MEDS ORDERED: TRAZ-181 PO (18:10)
[2020-08-10] MEDS ORDERED: MONT10TA34 PO (18:11)
[2020-08-10] MEDS ORDERED: FLUT250M2 INH (18:11)
[2020-08-10] MEDS ORDERED: IPRA0.00 NEB (18:12)
[2020-08-10] MEDS ORDERED: NITR0.4S29 SL (18:13)
[2020-08-10 22:00] VITALS: BP 106/60
[2020-08-10] MEDS: MONTELUKAST SODIUM 10 MG TAB PO SCH (22:14)
[2020-08-11] MEDS: ALBUTEROL SULF 2.5 MG/0.5ML(0.5%) NEB SOLN NEB SCH ×4 (00:12→19:00)
[2020-08-11 05:00] VITALS: BP 132/50
[2020-08-11] MEDS: methylPREDNISolone SOD SUCC 40 MG/ML VL IV SCH ×3 (06:50→22:36)
[2020-08-11 06:56] LABS: Basophils # (auto) 0 10 ^3/uL (0-0.2); Basophils % (auto) 0.1 % (0.0-2.0); Eosinophils # (auto) 0 10 ^3/uL (0-0.8); Hemoglobin 14.6 g/dL (12.2-16.2); Lymphocytes # (auto) 0.4 10 ^3/uL (0.4-5.4); Lymphocytes % (auto) 2.9 % (10.0-50.0); Mean Corpuscular Hemoglobin 28.2 pg (28.0-32.0); Mean Corpuscular Hgb Conc. 33.3 g/dL (32.0-36.0); Mean Corpuscular Volume 84.7 fL (80.0-100.0); Monocytes # (auto) 0.2 10 ^3/uL (0-1.3); Monocytes % (auto) 1.5 % (0.0-12.0); Neutrophils # (auto) 12.4 10 ^3/uL (1.6-8.6); Neutrophils % (auto) 95.5 % (37.0-80.0); Platelet Count (auto) 225 10^3/uL (140-450); Red Blood Cells 5.19 10^6/uL (4.0-5.20); Red Cell Distribution Width 14.6 % (11.8-14.3)
[2020-08-11] MEDS: IPRATROPIUM BROM 0.5 MG/2.5ML INH SOL NEB SCH ×3 (07:00→19:00)
[2020-08-11 07:04] LABS: Albumin 3.5 g/dL (3.4-5.0); Potassium 4.2 mmol/L (3.5-5.1)
[2020-08-11 07:09] LABS: BUN/Creatinine Ratio 30.6; Bilirubin, Total 0.5 mg/dL (0.2-1.0); Total Protein 7.6 g/dL (6.4-8.2)
[2020-08-11 08:00] VITALS: BP 129/75
[2020-08-11] MEDS: cefTRIAXone 1GM/50ML D5W 50 ML IV SCH (08:32)
[2020-08-11] MEDS: RANOLAZINE ER 500 MG TAB PO SCH (10:00)
[2020-08-11] MEDS: FAMOTIDINE 20 MG TAB PO SCH (10:28)
[2020-08-11] MEDS: ENOXAPARIN SOD 40 MG/0.4 ML SYRINGE SC SCH (10:28)
[2020-08-11] MEDS: ASPIRIN-DIPYRIDAMOLE (25/200MG) CAPSULE PO SCH (10:28)
[2020-08-11] MEDS: ACETAMINOPHEN 325 MG TAB PO PRN (12:59)
[2020-08-11] MEDS: ONDANSETRON HCL 4 MG/2 ML VIAL IV PRN (14:56)
[2020-08-11 16:00] VITALS: BP 161/94
[2020-08-11 22:00] VITALS: BP 128/70
[2020-08-11] MEDS: MONTELUKAST SODIUM 10 MG TAB PO SCH (22:37)
[2020-08-12 05:00] VITALS: BP 132/68
[2020-08-12] MEDS: IPRATROPIUM BROM 0.5 MG/2.5ML INH SOL NEB SCH ×3 (05:56→18:32)
[2020-08-12] MEDS: ALBUTEROL SULF 2.5 MG/0.5ML(0.5%) NEB SOLN NEB SCH ×3 (05:56→18:32)
[2020-08-12] MEDS: methylPREDNISolone SOD SUCC 40 MG/ML VL IV SCH ×3 (06:04→23:29)
[2020-08-12 07:03] LABS: Hematocrit 43.5 % (36.0-46.0); Hemoglobin 14.5 g/dL (12.2-16.2); Mean Corpuscular Hemoglobin 27.9 pg (28.0-32.0); Mean Corpuscular Hgb Conc. 33.4 g/dL (32.0-36.0); Mean Corpuscular Volume 83.7 fL (80.0-100.0); Platelet Count (auto) 231 10^3/uL (140-450); Red Cell Distribution Width 14.6 % (11.8-14.3); White Blood Cell 15.4 10^3/uL (4.4-10.8)
[2020-08-12 07:13] LABS: Potassium 4.2 mmol/L (3.5-5.1)
[2020-08-12 07:19] LABS: BUN/Creatinine Ratio 32.3; Calcium 9.6 mg/dL (8.5-10.1)
[2020-08-12 07:28] LABS: Band Neutrophils % (manual) 0; Basophils % (manual) 0 (0.0-2.0); Blast Cells 0; Eosinophils % (manual) 0 (0-7); Metamyelocytes % 0; Myelocytes % 0; Promyelocytes % 0; Reactive Lymphocytes 0
[2020-08-12 08:00] VITALS: BP 133/69
[2020-08-12] MEDS: ENOXAPARIN SOD 40 MG/0.4 ML SYRINGE SC SCH (09:09)
[2020-08-12] MEDS: FAMOTIDINE 20 MG TAB PO SCH (09:09)
[2020-08-12] MEDS: cefTRIAXone 1GM/50ML D5W 50 ML IV SCH (09:09)
[2020-08-12] MEDS: ASPIRIN-DIPYRIDAMOLE (25/200MG) CAPSULE PO SCH ×2 (09:14→09:17)
[2020-08-12 09:26] LABS: Lymphocytes % (manual) 6 (10.0-50.0); Monocytes % (manual) 3 (0-12)
[2020-08-12] MEDS: RANOLAZINE ER 500 MG TAB PO SCH (13:43)
[2020-08-12] MEDS: ONDANSETRON HCL 4 MG/2 ML VIAL IV PRN (13:43)
[2020-08-12] MEDS: ACETAMINOPHEN 325 MG TAB PO PRN (14:52)
[2020-08-12 16:00] VITALS: BP 140/73
[2020-08-12 21:39] VITALS: BP 130/73
[2020-08-12] MEDS: MONTELUKAST SODIUM 10 MG TAB PO SCH (23:29)
[2020-08-13 05:00] VITALS: BP 134/64
[2020-08-13 05:43] LABS: Basophils # (auto) 0 10 ^3/uL (0-0.2); Basophils % (auto) 0.1 % (0.0-2.0); Eosinophils # (auto) 0 10 ^3/uL (0-0.8); Hematocrit 42.5 % (36.0-46.0); Hemoglobin 14.1 g/dL (12.2-16.2); Lymphocytes # (auto) 0.3 10 ^3/uL (0.4-5.4); Lymphocytes % (auto) 4.1 % (10.0-50.0); Mean Corpuscular Hgb Conc. 33.2 g/dL (32.0-36.0); Mean Corpuscular Volume 84.3 fL (80.0-100.0); Monocytes # (auto) 0.2 10 ^3/uL (0-1.3); Monocytes % (auto) 2.3 % (0.0-12.0); Neutrophils # (auto) 7.4 10 ^3/uL (1.6-8.6); Neutrophils % (auto) 93.5 % (37.0-80.0); Nucleated Red Blood Cells % 0.2 %; Platelet Count (auto) 240 10^3/uL (140-450); Red Blood Cells 5.04 10^6/uL (4.0-5.20); Red Cell Distribution Width 14.4 % (11.8-14.3); White Blood Cell 7.9 10^3/uL (4.4-10.8)
[2020-08-13 06:00] LABS: Calcium 9.2 mg/dL (8.5-10.1); Potassium 4.2 mmol/L (3.5-5.1)
[2020-08-13] MEDS: methylPREDNISolone SOD SUCC 40 MG/ML VL IV SCH (06:19)
[2020-08-13 08:00] VITALS: BP 138/66
[2020-08-13 08:38] VITALS: BP 138/66
[2020-08-13] MEDS: cefTRIAXone 1GM/50ML D5W 50 ML IV SCH (09:00)
[2020-08-13] MEDS: RANOLAZINE ER 500 MG TAB PO SCH (10:11)
[2020-08-13] MEDS: ASPIRIN-DIPYRIDAMOLE (25/200MG) CAPSULE PO SCH (10:11)
[2020-08-13] MEDS: FAMOTIDINE 20 MG TAB PO SCH (10:11)
[2020-08-13] MEDS: ENOXAPARIN SOD 40 MG/0.4 ML SYRINGE SC SCH (10:11)
== END 2020-08-13 10:15 | disposition home or self-care (01) | DRG 190 ==
LOC: ER 15:44 → TELE 15:45 → TELE-CENTR 08-10 04:43
PROVIDERS: ADMIT Nurse Practitioner; ATTEND Internal Medicine
DX: J44.1 Chronic obstructive pulmonary disease with (acute) exacerbation (principal); J96.20 Acute and chronic respiratory failure, unspecified whether with hypoxia or hypercapnia; I10 Essential (primary) hypertension; D72.829 Elevated white blood cell count, unspecified; Z20.822 Contact with and (suspected) exposure to COVID-19; E78.5 Hyperlipidemia, unspecified; I48.91 Unspecified atrial fibrillation; Z82.49 Family history of ischemic heart disease and other diseases of the circulatory system; Z82.5 Family history of asthma and other chronic lower respiratory diseases; Z90.710 Acquired absence of both cervix and uterus; Z83.3 Family history of diabetes mellitus; Z85.3 Personal history of malignant neoplasm of breast; Z90.49 Acquired absence of other specified parts of digestive tract
CPT/HCPCS: 36415; 71045; 80048; 80053; 82728; 82962; 84484; 85007; 85025; 85027; 86141; 87040; 87426; 93005; 94640; 96365; 96366; 96375; 97116; 97530; G0378; J0696; J2405

== ENCOUNTER 2020-08-25 03:13 | Inpatient (IN) | payer MEDICARE, MEDICAID ==
[~2020-08-25] VITALS: Ht 162.6 cm; Wt 56.8 kg
[~2020-08-25 03:13] MED LIST changes: -AGG25C PO; +ESOM1CAP4 PO; -ESOM40CA39 PO; -FLUT110A IN; +FLUT1SPR5 EACHNOSTRI; +FLUT250M2 INH; +IPRA0.00 NEB; +ISO20T PO; +MONT-8 PO; +NITR0.4S29 SL; +PRE5T PO; -RANO500T2 PO; +THEO1TAB6 PO; +TRAZ-181 PO
[2020-08-25] MEDS ORDERED: guaiFENesin-DM 100/10mg/5ml SYR PO ONE (04:45)
[2020-08-25] MEDS ORDERED: methylPREDNISolone SOD SUCC 125 MG/2 ML VL ONE (08:25)
[2020-08-25] MEDS ORDERED: methylPREDNISolone SOD SUCC 125 MG/2 ML VL IV ONE (08:30)
[2020-08-25 08:39] LABS: Basophils # (auto) 0 10 ^3/uL (0-0.2); Basophils % (auto) 0.1 % (0.0-2.0); Eosinophils # (auto) 0.4 10 ^3/uL (0-0.8); Eosinophils % (auto) 1.9 % (0.0-7.0); Hematocrit 38.5 % (36.0-46.0); Hemoglobin 12.7 g/dL (12.2-16.2); Lymphocytes # (auto) 0.9 10 ^3/uL (0.4-5.4); Lymphocytes % (auto) 4.9 % (10.0-50.0); Mean Corpuscular Hgb Conc. 32.8 g/dL (32.0-36.0); Mean Corpuscular Volume 85.4 fL (80.0-100.0); Monocytes # (auto) 0.7 10 ^3/uL (0-1.3); Monocytes % (auto) 3.7 % (0.0-12.0); Neutrophils # (auto) 17.2 10 ^3/uL (1.6-8.6); Neutrophils % (auto) 89.4 % (37.0-80.0); Red Blood Cells 4.51 10^6/uL (4.0-5.20); Red Cell Distribution Width 15.2 % (11.8-14.3); White Blood Cell 19.2 10^3/uL (4.4-10.8)
[2020-08-25 09:02] LABS: INR 0.94 (0.9-1.15); Partial Thromboplastin Time 23.4 sec (23.0-31.2)
[2020-08-25 09:05] LABS: Albumin 2.8 g/dL (3.4-5.0); Calcium 8.8 mg/dL (8.5-10.1); Magnesium 2.6 mg/dL (1.6-2.6); Potassium 3.9 mmol/L (3.5-5.1)
[2020-08-25 09:11] LABS: BUN/Creatinine Ratio 16.9; Bilirubin, Total 0.8 mg/dL (0.2-1.0); Total Protein 6.1 g/dL (6.4-8.2)
[2020-08-25] MEDS: ALBUTEROL SULF 2.5 MG/0.5ML(0.5%) NEB SOLN NEB SCH ×2 (10:30→14:00)
[2020-08-25] MEDS ORDERED: NITROGLYCERIN 0.4 MG SL TAB SL PRN (13:15)
[2020-08-25] MEDS ORDERED: cefTRIAXone 1GM/50ML D5W 50 ML IV SCH (13:15)
[2020-08-25] MEDS ORDERED: MORPHINE SULFATE INJECTION 2 MG/ML SYRG IV PRN (13:15)
[2020-08-25] MEDS ORDERED: NITROGLYCERIN 0.4 MG SL TAB SL SCH (13:15)
[2020-08-25] MEDS ORDERED: SODIUM CHLORIDE 0.9% 1,000 ML IV ONE (13:15)
[2020-08-25] MEDS: TYLENOL PO SCH ×2 (14:00→22:00)
[2020-08-25] MEDS ORDERED: ACETAMINOPHEN/CODEINE#3 (300/30mg) TAB PO SCH (14:00)
[2020-08-25] MEDS ORDERED: ALBUTEROL SULF HFA 90MCG INH 200DOSE IN SCH (14:00)
[2020-08-25 15:01] VITALS: BP 164/80
[2020-08-25] MEDS ORDERED: ONDANSETRON HCL 4 MG/2 ML VIAL IV PRN (18:00)
[2020-08-25] MEDS: ALBUTEROL SULF 2.5 MG/0.5ML(0.5%) NEB SOLN NEB PRN (18:28)
[2020-08-25] MEDS: IPRATROPIUM BROM 0.5 MG/2.5ML INH SOL NEB PRN (18:28)
[2020-08-25] MEDS: traZODone HCL 50 MG TAB PO SCH (22:17)
[2020-08-25] MEDS: ISOSORBIDE MONONITRATE IR 20 MG TAB PO SCH (22:18)
[2020-08-26 04:00] VITALS: BP 113/66
[2020-08-26] MEDS: TYLENOL PO SCH ×3 (06:00→21:58)
[2020-08-26 07:00] LABS: Basophils # (auto) 0 10 ^3/uL (0-0.2); Basophils % (auto) 0.2 % (0.0-2.0); Eosinophils # (auto) 0 10 ^3/uL (0-0.8); Hemoglobin 12.6 g/dL (12.2-16.2); Lymphocytes # (auto) 0.5 10 ^3/uL (0.4-5.4); Lymphocytes % (auto) 3.1 % (10.0-50.0); Mean Corpuscular Hemoglobin 27.4 pg (28.0-32.0); Mean Corpuscular Hgb Conc. 32.4 g/dL (32.0-36.0); Mean Corpuscular Volume 84.6 fL (80.0-100.0); Monocytes # (auto) 0.5 10 ^3/uL (0-1.3); Monocytes % (auto) 3.3 % (0.0-12.0); Neutrophils # (auto) 14.9 10 ^3/uL (1.6-8.6); Neutrophils % (auto) 93.4 % (37.0-80.0); Nucleated Red Blood Cells % 0.1 %; Red Blood Cells 4.61 10^6/uL (4.0-5.20); Red Cell Distribution Width 15.1 % (11.8-14.3)
[2020-08-26 07:18] LABS: Albumin 2.7 g/dL (3.4-5.0); Calcium 8.9 mg/dL (8.5-10.1); Potassium 4.6 mmol/L (3.5-5.1)
[2020-08-26 07:22] LABS: BUN/Creatinine Ratio 31.9; Bilirubin, Total 0.7 mg/dL (0.2-1.0); Total Protein 6.2 g/dL (6.4-8.2)
[2020-08-26] MEDS ORDERED: cefTRIAXone 1GM/50ML D5W 50 ML IV SCH (09:00)
[2020-08-26] MEDS: THEOPHYLLINE 80 MG/15ml ORAL Elixir PO SCH (09:10)
[2020-08-26] MEDS: methylPREDNISolone SOD SUCC 40 MG/ML VL IV SCH ×3 (09:11→21:56)
[2020-08-26] MEDS: ISOSORBIDE MONONITRATE IR 20 MG TAB PO SCH ×2 (09:11→21:57)
[2020-08-26] MEDS: PANTOPRAZOLE 40 MG TAB PO SCH (09:18)
[2020-08-26] MEDS: MONTELUKAST SODIUM 10 MG TAB PO SCH (09:18)
[2020-08-26] MEDS: ALBUTEROL SULF 2.5 MG/0.5ML(0.5%) NEB SOLN NEB PRN ×3 (09:40→18:25)
[2020-08-26] MEDS: IPRATROPIUM BROM 0.5 MG/2.5ML INH SOL NEB PRN ×3 (09:40→18:25)
[2020-08-26] MEDS ORDERED: levoFLOXacin 500MG 100 ML IV SCH ×2 (10:00)
[2020-08-26] MEDS ORDERED: FUROSEMIDE 20 MG/2 ML VIAL IV ONE (10:15)
[2020-08-26 17:00] VITALS: BP 116/67
[2020-08-26] MEDS: traZODone HCL 50 MG TAB PO SCH (21:56)
[2020-08-26 22:00] VITALS: BP 115/60
[2020-08-27 05:00] VITALS: BP 115/67
[2020-08-27] MEDS: methylPREDNISolone SOD SUCC 40 MG/ML VL IV SCH ×3 (05:41→23:02)
[2020-08-27] MEDS: TYLENOL PO SCH ×3 (05:42→22:00)
[2020-08-27 07:06] LABS: Basophils # (auto) 0 10 ^3/uL (0-0.2); Basophils % (auto) 0.2 % (0.0-2.0); Eosinophils # (auto) 0 10 ^3/uL (0-0.8); Hematocrit 36.9 % (36.0-46.0); Hemoglobin 12.3 g/dL (12.2-16.2); Lymphocytes # (auto) 0.3 10 ^3/uL (0.4-5.4); Lymphocytes % (auto) 3.4 % (10.0-50.0); Mean Corpuscular Hgb Conc. 33.3 g/dL (32.0-36.0); Monocytes # (auto) 0.2 10 ^3/uL (0-1.3); Monocytes % (auto) 2.3 % (0.0-12.0); Neutrophils # (auto) 8.6 10 ^3/uL (1.6-8.6); Neutrophils % (auto) 94.1 % (37.0-80.0); Red Cell Distribution Width 15.2 % (11.8-14.3); White Blood Cell 9.2 10^3/uL (4.4-10.8)
[2020-08-27 07:21] LABS: Potassium 3.9 mmol/L (3.5-5.1)
[2020-08-27 09:00] VITALS: BP 116/68
[2020-08-27] MEDS: levoFLOXacin 250MG 50 ML IV SCH (09:56)
[2020-08-27] MEDS: PANTOPRAZOLE 40 MG TAB PO SCH (09:56)
[2020-08-27] MEDS: MONTELUKAST SODIUM 10 MG TAB PO SCH (09:57)
[2020-08-27] MEDS: ISOSORBIDE MONONITRATE IR 20 MG TAB PO SCH ×2 (10:22→23:04)
[2020-08-27] MEDS: THEOPHYLLINE 80 MG/15ml ORAL Elixir PO SCH (10:22)
[2020-08-27 13:00] VITALS: BP 127/69
[2020-08-27 17:16] VITALS: BP 106/64
[2020-08-27] MEDS: ALBUTEROL SULF 2.5 MG/0.5ML(0.5%) NEB SOLN NEB PRN (20:03)
[2020-08-27] MEDS: IPRATROPIUM BROM 0.5 MG/2.5ML INH SOL NEB PRN (20:03)
[2020-08-27 22:00] VITALS: BP 92/51
[2020-08-27] MEDS: traZODone HCL 50 MG TAB PO SCH (23:03)
[2020-08-28 03:14] VITALS: BP 92/51
[2020-08-28 05:00] VITALS: BP 123/82
[2020-08-28] MEDS: TYLENOL PO SCH ×3 (05:29→22:00)
[2020-08-28] MEDS: methylPREDNISolone SOD SUCC 40 MG/ML VL IV SCH ×3 (05:37→22:17)
[2020-08-28] MEDS: ALBUTEROL SULF 2.5 MG/0.5ML(0.5%) NEB SOLN NEB PRN ×2 (06:55→23:24)
[2020-08-28] MEDS: IPRATROPIUM BROM 0.5 MG/2.5ML INH SOL NEB PRN ×2 (06:55→23:23)
[2020-08-28 08:39] VITALS: BP 113/64
[2020-08-28] MEDS: THEOPHYLLINE 80 MG/15ml ORAL Elixir PO SCH (09:46)
[2020-08-28] MEDS: levoFLOXacin 250MG 50 ML IV SCH (09:46)
[2020-08-28] MEDS: PANTOPRAZOLE 40 MG TAB PO SCH (09:47)
[2020-08-28] MEDS: MONTELUKAST SODIUM 10 MG TAB PO SCH (09:47)
[2020-08-28] MEDS: ISOSORBIDE MONONITRATE IR 20 MG TAB PO SCH ×2 (10:00→22:18)
[2020-08-28 13:00] VITALS: BP 115/69
[2020-08-28 17:08] VITALS: BP 113/66
[2020-08-28 22:00] VITALS: BP 135/91
[2020-08-28] MEDS: traZODone HCL 50 MG TAB PO SCH (22:18)
[2020-08-29 05:00] VITALS: BP 136/71
[2020-08-29] MEDS: methylPREDNISolone SOD SUCC 40 MG/ML VL IV SCH ×3 (05:49→21:59)
[2020-08-29] MEDS: TYLENOL PO SCH ×3 (05:50→21:52)
[2020-08-29 07:53] LABS: Basophils # (auto) 0 10 ^3/uL (0-0.2); Basophils % (auto) 0.1 % (0.0-2.0); Eosinophils # (auto) 0 10 ^3/uL (0-0.8); Hematocrit 39.3 % (36.0-46.0); Hemoglobin 13.2 g/dL (12.2-16.2); Lymphocytes # (auto) 0.2 10 ^3/uL (0.4-5.4); Lymphocytes % (auto) 2.4 % (10.0-50.0); Mean Corpuscular Hgb Conc. 33.6 g/dL (32.0-36.0); Mean Corpuscular Volume 83.5 fL (80.0-100.0); Monocytes # (auto) 0.1 10 ^3/uL (0-1.3); Monocytes % (auto) 1.6 % (0.0-12.0); Neutrophils # (auto) 6.6 10 ^3/uL (1.6-8.6); Neutrophils % (auto) 95.9 % (37.0-80.0); Red Blood Cells 4.71 10^6/uL (4.0-5.20); Red Cell Distribution Width 14.8 % (11.8-14.3); White Blood Cell 6.9 10^3/uL (4.4-10.8)
[2020-08-29 08:00] VITALS: BP 134/70
[2020-08-29 08:16] LABS: Potassium 3.7 mmol/L (3.5-5.1)
[2020-08-29 08:21] LABS: Albumin 2.9 g/dL (3.4-5.0); BUN/Creatinine Ratio 38.5; Calcium 9.2 mg/dL (8.5-10.1)
[2020-08-29 08:25] LABS: Bilirubin, Total 0.7 mg/dL (0.2-1.0)
[2020-08-29] MEDS: MONTELUKAST SODIUM 10 MG TAB PO SCH ×2 (10:00→10:32)
[2020-08-29] MEDS: ISOSORBIDE MONONITRATE IR 20 MG TAB PO SCH ×2 (10:00→22:01)
[2020-08-29] MEDS: THEOPHYLLINE 80 MG/15ml ORAL Elixir PO SCH (10:28)
[2020-08-29] MEDS: PANTOPRAZOLE 40 MG TAB PO SCH (10:28)
[2020-08-29] MEDS: levoFLOXacin 250MG 50 ML IV SCH (10:28)
[2020-08-29 12:00] VITALS: BP 129/62
[2020-08-29 17:00] VITALS: BP 114/67
[2020-08-29 22:00] VITALS: BP 118/63
[2020-08-29] MEDS: traZODone HCL 50 MG TAB PO SCH (22:00)
[2020-08-30] MEDS: IPRATROPIUM BROM 0.5 MG/2.5ML INH SOL NEB PRN (01:33)
[2020-08-30] MEDS: ALBUTEROL SULF 2.5 MG/0.5ML(0.5%) NEB SOLN NEB PRN (01:33)
[2020-08-30 05:00] VITALS: BP 129/70
[2020-08-30] MEDS: TYLENOL PO SCH (05:53)
[2020-08-30] MEDS: methylPREDNISolone SOD SUCC 40 MG/ML VL IV SCH (05:54)
[2020-08-30 08:00] VITALS: BP 151/77
[2020-08-30] MEDS: MONTELUKAST SODIUM 10 MG TAB PO SCH (10:00)
[2020-08-30] MEDS: levoFLOXacin 250MG 50 ML IV SCH (10:00)
[2020-08-30] MEDS: THEOPHYLLINE 80 MG/15ml ORAL Elixir PO SCH (10:00)
[2020-08-30] MEDS: ISOSORBIDE MONONITRATE IR 20 MG TAB PO SCH (10:00)
[2020-08-30] MEDS: PANTOPRAZOLE 40 MG TAB PO SCH (10:00)
[2020-08-30 11:04] VITALS: BP 118/63
== END 2020-08-30 12:00 | disposition home or self-care (01) | DRG 189 ==
LOC: EDBD 03:13 → ER 03:16 → TELE 03:17 → TELE-CENTR 08-26 16:07
PROVIDERS: ADMIT Internal Medicine; ATTEND Internal Medicine
DX: J96.20 Acute and chronic respiratory failure, unspecified whether with hypoxia or hypercapnia (principal); J18.9 Pneumonia, unspecified organism; J44.1 Chronic obstructive pulmonary disease with (acute) exacerbation; J45.901 Unspecified asthma with (acute) exacerbation; E44.0 Moderate protein-calorie malnutrition; J44.0 Chronic obstructive pulmonary disease with (acute) lower respiratory infection; E88.09 Other disorders of plasma-protein metabolism, not elsewhere classified; E78.5 Hyperlipidemia, unspecified; I10 Essential (primary) hypertension; I48.91 Unspecified atrial fibrillation; Z20.822 Contact with and (suspected) exposure to COVID-19; Z66 Do not resuscitate; Z82.5 Family history of asthma and other chronic lower respiratory diseases; Z85.3 Personal history of malignant neoplasm of breast; Z87.01 Personal history of pneumonia (recurrent); Z87.891 Personal history of nicotine dependence; Z90.710 Acquired absence of both cervix and uterus; Z99.81 Dependence on supplemental oxygen; Z88.1 Allergy status to other antibiotic agents; Z68.21 Body mass index [BMI] 21.0-21.9, adult; I25.119 Atherosclerotic heart disease of native coronary artery with unspecified angina pectoris
CPT/HCPCS: 36415; 71045; 80048; 80053; 83605; 83735; 83880; 84484; 85025; 85610; 85730; 87040; 87081; 87426; 93005; 94640; 97116; 97530; G0378; J0696; J1956

== ENCOUNTER 2020-10-25 03:06 | Inpatient (IN) | payer MEDICARE, MEDICAID ==
[~2020-10-25] VITALS: Ht 154.9 cm; Wt 54.0 kg
[~2020-10-25 03:06] MED LIST changes: -MONT-8 PO; +MONT10TA34 PO
[2020-10-25] MEDS ORDERED: dilTIAZem 25 MG/5 ML VIAL IV ONE ×2 (03:21→04:15)
[2020-10-25 03:59] LABS: Basophils # (auto) 0.1 10 ^3/uL (0-0.2); Basophils % (auto) 0.9 % (0.0-2.0); Eosinophils # (auto) 0.2 10 ^3/uL (0-0.8); Eosinophils % (auto) 2.4 % (0.0-7.0); Hematocrit 35.3 % (36.0-46.0); Hemoglobin 11.4 g/dL (12.2-16.2); Lymphocytes # (auto) 0.4 10 ^3/uL (0.4-5.4); Lymphocytes % (auto) 6.5 % (10.0-50.0); Mean Corpuscular Hemoglobin 27.3 pg (28.0-32.0); Mean Corpuscular Hgb Conc. 32.1 g/dL (32.0-36.0); Mean Corpuscular Volume 84.9 fL (80.0-100.0); Monocytes # (auto) 0.6 10 ^3/uL (0-1.3); Neutrophils # (auto) 5.5 10 ^3/uL (1.6-8.6); Neutrophils % (auto) 81.2 % (37.0-80.0); Platelet Count (auto) 184 10^3/uL (140-450); Red Blood Cells 4.16 10^6/uL (4.0-5.20); Red Cell Distribution Width 16.6 % (11.8-14.3); White Blood Cell 6.8 10^3/uL (4.4-10.8)
[2020-10-25 04:13] LABS: INR 1.03 (0.9-1.15)
[2020-10-25] MEDS ORDERED: AMIODARONE HCL 150 MG in D5W 5% 100 ML IV ONE (04:15)
[2020-10-25 04:17] LABS: Albumin 2.5 g/dL (3.4-5.0); Anion Gap 10 (5-15); Blood Urea Nitrogen 19 mg/dL (7-18); Calcium 8.5 mg/dL (8.5-10.1); Carbon Dioxide 19 mmol/L (21-32); Chloride 107 mmol/L (98-107); Glucose 124 mg/dL (74-106); Magnesium 1.8 mg/dL (1.6-2.6); Potassium 3.5 mmol/L (3.5-5.1); Sodium 136 mmol/L (136-145)
[2020-10-25 04:19] LABS: Alanine Aminotransferase 11 U/L (13-56); Aspartate Aminotransferase 18 U/L (15-37); BUN/Creatinine Ratio 24.1; GFR African American 89 mL/min; GFR Non-African American 73 mL/min
[2020-10-25 04:22] LABS: Alkaline Phosphatase 47 U/L (45-117); Bilirubin, Total 0.5 mg/dL (0.2-1.0); Total Protein 5.6 g/dL (6.4-8.2)
[2020-10-25] MEDS ORDERED: AMIODARONE 450mg/250ml AE 250 ML IV SCH (04:30)
[2020-10-25] MEDS ORDERED: AMIODARONE HCL (50 MG/ ML) 3 ML VIAL IV ONE (04:47)
[2020-10-25] MEDS ORDERED: AMIODARONE 450mg/250ml AE 250 ML IV ONE (04:47)
[2020-10-25] MEDS ORDERED: HYDROcodone-ACET 5/325MG TAB PO PRN (05:30)
[2020-10-25] MEDS ORDERED: TEMAZEPAM 15 MG CAP PO PRN (05:30)
[2020-10-25] MEDS ORDERED: NITROGLYCERIN 0.4 MG SL TAB SL PRN (05:30)
[2020-10-25] MEDS ORDERED: ALBUTEROL SULF 2.5 MG/0.5ML(0.5%) NEB SOLN NEB PRN (05:30)
[2020-10-25] MEDS ORDERED: ACETAMINOPHEN 325 MG TAB PO PRN (05:30)
[2020-10-25] MEDS ORDERED: MORPHINE SULF INJ 2 MG/ML SYRINGE 1ML IV PRN (05:30)
[2020-10-25 06:18] VITALS: BP 76/58
[2020-10-25] MEDS ORDERED: ALBUMIN 5% 50 ML IV ONE (06:45)
[2020-10-25] MEDS ORDERED: MAGNESIUM SULFATE 1GM/100ML 100 ML IV ONE (09:00)
[2020-10-25] MEDS ORDERED: POTASSIUM CHL 20 Meq TABLET PO ONE (09:00)
[2020-10-25 09:31] LABS: Urine Bacteria FEW /hpf (None Seen); Urine Blood Negative /uL (Negative); Urine Mucus FEW (None Seen); Urine Specific Gravity 1.012 (1.001-1.035); Urine WBC 17 /hpf (0 - 5)
[2020-10-25] MEDS: DOBUTamine 1000MCG/ML 100 ML IV ONE ×2 (09:40→14:10)
[2020-10-25] MEDS: FAMOTIDINE 20 MG TAB PO SCH (09:49)
[2020-10-25] MEDS: AMIODARONE HCL 200 MG TAB PO SCH ×2 (09:49→21:45)
[2020-10-25] MEDS: ENOXAPARIN SOD 40 MG/0.4 ML SYRINGE SC SCH (09:50)
[2020-10-25] MEDS: busPIRone HCL 10 MG TAB PO SCH ×2 (09:50→21:44)
[2020-10-25] MEDS ORDERED: ASPirin 81 mg TAB PO ONE (11:45)
[2020-10-25 14:08] VITALS: BP 175/78
[2020-10-25] MEDS ORDERED: ALBUTEROL SULF 2.5 MG/0.5ML(0.5%) NEB SOLN ONE (14:16)
[2020-10-25] MEDS: ALBUTEROL SULF 2.5 MG/0.5ML(0.5%) NEB SOLN NEB PRN ×3 (14:17→22:01)
[2020-10-25 17:52] VITALS: BP 135/73
[2020-10-25] MEDS: MONTELUKAST SODIUM 10 MG TAB PO SCH (21:45)
[2020-10-25 22:00] VITALS: BP 149/82
[2020-10-26] MEDS: ALBUTEROL SULF 2.5 MG/0.5ML(0.5%) NEB SOLN NEB PRN ×3 (02:36→09:58)
[2020-10-26 05:00] VITALS: BP 151/78
[2020-10-26 06:43] LABS: Basophils # (auto) 0 10 ^3/uL (0-0.2); Basophils % (auto) 0.4 % (0.0-2.0); Eosinophils # (auto) 0.1 10 ^3/uL (0-0.8); Eosinophils % (auto) 2.2 % (0.0-7.0); Hematocrit 34.3 % (36.0-46.0); Hemoglobin 11.6 g/dL (12.2-16.2); Lymphocytes # (auto) 0.3 10 ^3/uL (0.4-5.4); Lymphocytes % (auto) 6.7 % (10.0-50.0); Mean Corpuscular Hgb Conc. 33.9 g/dL (32.0-36.0); Mean Corpuscular Volume 82.8 fL (80.0-100.0); Monocytes # (auto) 0.4 10 ^3/uL (0-1.3); Monocytes % (auto) 9.6 % (0.0-12.0); Neutrophils # (auto) 3.5 10 ^3/uL (1.6-8.6); Neutrophils % (auto) 81.1 % (37.0-80.0); Nucleated Red Blood Cells % 0.4 %; Platelet Count (auto) 146 10^3/uL (140-450); Red Blood Cells 4.14 10^6/uL (4.0-5.20); Red Cell Distribution Width 16.4 % (11.8-14.3); White Blood Cell 4.4 10^3/uL (4.4-10.8)
[2020-10-26 06:59] LABS: Potassium 3.5 mmol/L (3.5-5.1)
[2020-10-26 07:07] LABS: Albumin 2.7 g/dL (3.4-5.0); Bilirubin, Total 0.7 mg/dL (0.2-1.0); Magnesium 2.2 mg/dL (1.6-2.6); Total Protein 5.8 g/dL (6.4-8.2)
[2020-10-26] MEDS ORDERED: POTASSIUM CHL 20 Meq TABLET PO ONE (08:45)
[2020-10-26] MEDS: ENOXAPARIN SOD 40 MG/0.4 ML SYRINGE SC SCH (09:01)
[2020-10-26] MEDS: AMIODARONE HCL 200 MG TAB PO SCH ×2 (09:02→22:19)
[2020-10-26] MEDS: ASPirin 81 mg TAB PO SCH (09:02)
[2020-10-26] MEDS: busPIRone HCL 10 MG TAB PO SCH ×2 (09:02→22:19)
[2020-10-26] MEDS: FAMOTIDINE 20 MG TAB PO SCH (09:03)
[2020-10-26 09:14] VITALS: BP 134/73
[2020-10-26] MEDS ORDERED: DIGOXIN (250MCG/ML) 2 ML AMPULE IV ONE (10:45)
[2020-10-26] MEDS ORDERED: METOPROLOL TARTRATE 25 MG TAB PO ONE (10:45)
[2020-10-26 13:00] VITALS: BP 125/61
[2020-10-26] MEDS: ALBUTEROL SULF 2.5 MG/0.5ML(0.5%) NEB SOLN NEB SCH ×3 (13:50→22:31)
[2020-10-26] MEDS: ONDANSETRON HCL 4 MG/2 ML VIAL IV PRN ×2 (15:50→22:50)
[2020-10-26 17:00] VITALS: BP 126/75
[2020-10-26] MEDS ORDERED: ONDA-144 PO (17:25)
[2020-10-26 22:00] VITALS: BP 122/65
[2020-10-26] MEDS: METOPROLOL TARTRATE 25 MG TAB PO SCH (22:18)
[2020-10-26] MEDS: MONTELUKAST SODIUM 10 MG TAB PO SCH (22:19)
[2020-10-27] MEDS: ALBUTEROL SULF 2.5 MG/0.5ML(0.5%) NEB SOLN NEB SCH ×6 (02:23→21:49)
[2020-10-27] MEDS ORDERED: ANGIOMAX 250 MG VIAL IV ONE (05:22)
[2020-10-27] MEDS ORDERED: MIDAZOLAM HCL 1MG/1ML-2 ML VIAL ONE (05:22)
[2020-10-27] MEDS ORDERED: fentaNYL CITRATE 100 MCG/2 ML VL ONE (05:22)
[2020-10-27] MEDS ORDERED: IOHEXOL 350 MG/ML 100ML IJ ONE ×3 (05:23→06:15)
[2020-10-27] MEDS ORDERED: SODIUM CHL 0.9% 0 ML ONE (05:23)
[2020-10-27] MEDS ORDERED: LIDOCAINE 2%HCL (LOCAL ANESTH.) INJ 20ML MDV ONE (05:23)
[2020-10-27 05:30] VITALS: BP 104/61
[2020-10-27] MEDS ORDERED: SODIUM CHLORIDE 0.9 % NEB SOLN 3ML NEB ONE ×2 (05:32→09:49)
[2020-10-27] MEDS: ONDANSETRON HCL 4 MG/2 ML VIAL IV PRN ×2 (05:43→16:48)
[2020-10-27 05:55] LABS: Basophils # (auto) 0 10 ^3/uL (0-0.2); Basophils % (auto) 0.7 % (0.0-2.0); Eosinophils # (auto) 0.1 10 ^3/uL (0-0.8); Eosinophils % (auto) 2.2 % (0.0-7.0); Hematocrit 40.1 % (36.0-46.0); Hemoglobin 13.3 g/dL (12.2-16.2); Lymphocytes # (auto) 0.6 10 ^3/uL (0.4-5.4); Lymphocytes % (auto) 9.7 % (10.0-50.0); Mean Corpuscular Hemoglobin 27.5 pg (28.0-32.0); Mean Corpuscular Hgb Conc. 33.2 g/dL (32.0-36.0); Mean Corpuscular Volume 82.8 fL (80.0-100.0); Monocytes # (auto) 0.7 10 ^3/uL (0-1.3); Monocytes % (auto) 10.9 % (0.0-12.0); Neutrophils # (auto) 4.9 10 ^3/uL (1.6-8.6); Neutrophils % (auto) 76.5 % (37.0-80.0); Nucleated Red Blood Cells % 0.3 %; Platelet Count (auto) 178 10^3/uL (140-450); Red Blood Cells 4.84 10^6/uL (4.0-5.20); Red Cell Distribution Width 16.7 % (11.8-14.3); White Blood Cell 6.4 10^3/uL (4.4-10.8)
[2020-10-27 06:21] LABS: Potassium 3.7 mmol/L (3.5-5.1)
[2020-10-27 06:31] LABS: Calcium 9.7 mg/dL (8.5-10.1)
[2020-10-27 09:00] VITALS: BP 123/57
[2020-10-27] MEDS: busPIRone HCL 10 MG TAB PO SCH ×2 (09:44→21:24)
[2020-10-27] MEDS: ASPirin 81 mg TAB PO SCH (09:44)
[2020-10-27] MEDS: AMIODARONE HCL 200 MG TAB PO SCH ×2 (09:45→21:25)
[2020-10-27] MEDS: FAMOTIDINE 20 MG TAB PO SCH (09:45)
[2020-10-27] MEDS: METOPROLOL TARTRATE 25 MG TAB PO SCH ×2 (09:46→21:26)
[2020-10-27] MEDS: ENOXAPARIN SOD 40 MG/0.4 ML SYRINGE SC SCH (09:46)
[2020-10-27 13:00] VITALS: BP 114/68
[2020-10-27 16:49] VITALS: BP 126/69
[2020-10-27] MEDS: MONTELUKAST SODIUM 10 MG TAB PO SCH (21:26)
[2020-10-27 22:00] VITALS: BP 138/73
[2020-10-28] MEDS: ALBUTEROL SULF 2.5 MG/0.5ML(0.5%) NEB SOLN NEB SCH ×4 (02:43→13:09)
[2020-10-28 05:00] VITALS: BP 130/63
[2020-10-28 05:37] LABS: Basophils # (auto) 0 10 ^3/uL (0-0.2); Basophils % (auto) 0.6 % (0.0-2.0); Eosinophils # (auto) 0.2 10 ^3/uL (0-0.8); Eosinophils % (auto) 2.6 % (0.0-7.0); Hematocrit 36.3 % (36.0-46.0); Lymphocytes # (auto) 0.7 10 ^3/uL (0.4-5.4); Lymphocytes % (auto) 11.5 % (10.0-50.0); Mean Corpuscular Hemoglobin 27.3 pg (28.0-32.0); Mean Corpuscular Volume 82.6 fL (80.0-100.0); Monocytes # (auto) 0.6 10 ^3/uL (0-1.3); Monocytes % (auto) 9.9 % (0.0-12.0); Neutrophils # (auto) 4.5 10 ^3/uL (1.6-8.6); Neutrophils % (auto) 75.4 % (37.0-80.0); Nucleated Red Blood Cells % 0.2 %; Platelet Count (auto) 175 10^3/uL (140-450); Red Blood Cells 4.39 10^6/uL (4.0-5.20); Red Cell Distribution Width 16.7 % (11.8-14.3)
[2020-10-28 05:56] LABS: Potassium 3.6 mmol/L (3.5-5.1)
[2020-10-28 06:04] LABS: BUN/Creatinine Ratio 21.8; Calcium 9.8 mg/dL (8.5-10.1)
[2020-10-28 09:00] VITALS: BP 116/55
[2020-10-28] MEDS: busPIRone HCL 10 MG TAB PO SCH (10:10)
[2020-10-28] MEDS: FAMOTIDINE 20 MG TAB PO SCH (10:10)
[2020-10-28] MEDS: AMIODARONE HCL 200 MG TAB PO SCH (10:11)
[2020-10-28] MEDS: METOPROLOL TARTRATE 25 MG TAB PO SCH (10:11)
[2020-10-28] MEDS: ENOXAPARIN SOD 40 MG/0.4 ML SYRINGE SC SCH (10:13)
[2020-10-28] MEDS: ASPirin 81 mg TAB PO SCH (10:15)
[2020-10-28 10:39] VITALS: BP 116/55
[2020-10-28 12:34] VITALS: BP 116/59
== END 2020-10-28 15:30 | disposition home or self-care (01) | DRG 286 ==
LOC: EDBD 03:06 → ER 03:11 → TELE 05:29 → TELE-WESTW 17:09
PROVIDERS: ADMIT Nurse Practitioner; ATTEND Internal Medicine
PROC: 05HB33Z Insertion of Infusion Device into Right Basilic Vein, Percutaneous Approach (ICD-10-PCS; principal; 2020-10-25)
PROC: B54MZZA Ultrasonography of Right Upper Extremity Veins, Guidance (ICD-10-PCS; 2020-10-25)
PROC: 4A023N8 Measurement of Cardiac Sampling and Pressure, Bilateral, Percutaneous Approach (ICD-10-PCS; 2020-10-27)
PROC: B2111ZZ Fluoroscopy of Multiple Coronary Arteries using Low Osmolar Contrast (ICD-10-PCS; 2020-10-27)
PROC: B2151ZZ Fluoroscopy of Left Heart using Low Osmolar Contrast (ICD-10-PCS; 2020-10-27)
DX: I48.0 Paroxysmal atrial fibrillation (principal); E43 Unspecified severe protein-calorie malnutrition; J96.10 Chronic respiratory failure, unspecified whether with hypoxia or hypercapnia; I25.10 Atherosclerotic heart disease of native coronary artery without angina pectoris; Z66 Do not resuscitate; D64.9 Anemia, unspecified; E78.5 Hyperlipidemia, unspecified; I10 Essential (primary) hypertension; J44.9 Chronic obstructive pulmonary disease, unspecified; I08.0 Rheumatic disorders of both mitral and aortic valves; Z20.822 Contact with and (suspected) exposure to COVID-19; Z82.49 Family history of ischemic heart disease and other diseases of the circulatory system; Z79.82 Long term (current) use of aspirin; Z83.3 Family history of diabetes mellitus; Z87.891 Personal history of nicotine dependence; Z90.710 Acquired absence of both cervix and uterus; Z68.22 Body mass index [BMI] 22.0-22.9, adult; Z88.8 Allergy status to other drugs, medicaments and biological substances; I95.9 Hypotension, unspecified
CPT/HCPCS: 36415; 71045; 78452; 80048; 80053; 81001; 83605; 83735; 83880; 84443; 84484; 85025; 85610; 87081; 87426; 93005; 93017; 93306; 94640; 96365; 96366; 96372; 96375; 99152; 99153; 99291; C1751; G0378; J2250; J2405; J7060

== ENCOUNTER 2020-12-19 07:33 | Inpatient (IN) | payer MEDICARE, MEDICAID ==
[~2020-12-19] VITALS: Ht 162.6 cm; Wt 53.7 kg
[~2020-12-19 07:33] MED LIST changes: -BUSP15TA60 PO; -MONT10TA34 PO; +MONT10TA42 PO; +ONDA-144 PO
[2020-12-19] MEDS ORDERED: SODIUM CHLORIDE 0.9% 1,000 ML IV ONE (07:45)
[2020-12-19 10:51] LABS: Basophils # (auto) 0 10 ^3/uL (0-0.2); Basophils % (auto) 0.4 % (0.0-2.0); Eosinophils # (auto) 0.1 10 ^3/uL (0-0.8); Eosinophils % (auto) 1.1 % (0.0-7.0); Hematocrit 41.5 % (36.0-46.0); Hemoglobin 12.9 g/dL (12.2-16.2); Lymphocytes # (auto) 0.5 10 ^3/uL (0.4-5.4); Mean Corpuscular Hemoglobin 25.9 pg (28.0-32.0); Mean Corpuscular Volume 83.5 fL (80.0-100.0); Monocytes # (auto) 0.8 10 ^3/uL (0-1.3); Neutrophils # (auto) 10.3 10 ^3/uL (1.6-8.6); Neutrophils % (auto) 87.5 % (37.0-80.0); Platelet Count (auto) 135 10^3/uL (140-450); Red Blood Cells 4.97 10^6/uL (4.0-5.20); Red Cell Distribution Width 16.1 % (11.8-14.3); White Blood Cell 11.8 10^3/uL (4.4-10.8)
[2020-12-19] MEDS ORDERED: AMIODARONE HCL (50 MG/ ML) 3 ML VIAL IV ONE (10:53)
[2020-12-19 10:56] LABS: Urine Bacteria NONE SEEN /hpf (None Seen); Urine Blood Negative /uL (Negative); Urine Specific Gravity 1.012 (1.001-1.035); Urine WBC 1 /hpf (0 - 5)
[2020-12-19 10:58] LABS: Albumin 2.3 g/dL (3.4-5.0); Calcium 6.7 mg/dL (8.5-10.1)
[2020-12-19] MEDS ORDERED: AMIODARONE HCL 150 MG in D5W 5% 100 ML IV ONE (11:00)
[2020-12-19] MEDS ORDERED: AMIODARONE 450mg/250ml AE 250 ML IV SCH (11:00)
[2020-12-19 11:02] LABS: BUN/Creatinine Ratio 27.5; Bilirubin, Total 0.4 mg/dL (0.2-1.0); Total Protein 4.4 g/dL (6.4-8.2)
[2020-12-19 11:07] LABS: Potassium 2.9 mmol/L (3.5-5.1)
[2020-12-19] MEDS ORDERED: POTASSIUM CHL 20MEQ/100ML 100 ML IV ONE (11:45)
[2020-12-19] MEDS ORDERED: metroNIDAZOLE 500MG/100ML 100 ML IV ONE (11:45)
[2020-12-19] MEDS ORDERED: MORPHINE SULF INJ 2 MG/ML SYRINGE 1ML IV PRN ×2 (13:00)
[2020-12-19] MEDS ORDERED: levoFLOXacin 500MG 100 ML IV ONE (13:00)
[2020-12-19] MEDS ORDERED: LACTULOSE 20Gm/30ML SOLN PO PRN (13:00)
[2020-12-19] MEDS ORDERED: methylPREDNISolone SOD SUCC 40 MG/ML VL IV ONE (13:00)
[2020-12-19] MEDS ORDERED: NITROGLYCERIN 0.4 MG SL TAB SL PRN (13:00)
[2020-12-19] MEDS ORDERED: ACETAMINOPHEN 500 MG TAB PO PRN (13:00)
[2020-12-19] MEDS ORDERED: traMADol HCL 50 MG TAB PO PRN (13:00)
[2020-12-19] MEDS ORDERED: ENOXAPARIN SOD 40 MG/0.4 ML SYRINGE SC ONE (13:11)
[2020-12-19] MEDS ORDERED: ACETAMINOPHEN PO PRN (13:15)
[2020-12-19] MEDS ORDERED: POTASSIUM EFFERVESENT TAB 25 MEQ PO ONE (13:15)
[2020-12-19] MEDS ORDERED: CODEINE PO PRN (13:15)
[2020-12-19] MEDS: SODIUM CHLORIDE 0.9% 1,000 ML IV SCH (13:37)
[2020-12-19] MEDS: FAMOTIDINE (10MG/ML) 2ML VL IV SCH (13:49)
[2020-12-19] MEDS: metroNIDAZOLE 500MG/100ML 100 ML IV SCH ×2 (13:50→22:20)
[2020-12-19 13:52] LABS: Amylase 50 U/L (25-115); Lipase 87 U/L (73-393)
[2020-12-19 15:17] VITALS: BP 99/42
[2020-12-19] MEDS: POTASSIUM CHL 20MEQ/100ML 100 ML IV SCH ×2 (16:21→16:22)
[2020-12-19] MEDS: AMIODARONE 450mg/250ml AE 250 ML IV SCH ×2 (17:29→19:35)
[2020-12-19] MEDS: IPRATROPIUM BROM 0.5 MG/2.5ML INH SOL NEB SCH (18:39)
[2020-12-19] MEDS: ALBUTEROL SULF 2.5 MG/0.5ML(0.5%) NEB SOLN NEB SCH (18:39)
[2020-12-19] MEDS: BUDESONIDE (INHALATION) 0.5 MG/2 ML NEB NEB SCH (18:39)
[2020-12-19] MEDS ORDERED: PATIENTS OWN MEDICATION (Fluticasone-Salmeterol (Advair Diskus 250/50) 1 PUFF) INH SCH (22:00)
[2020-12-19] MEDS: methylPREDNISolone SOD SUCC 40 MG/ML VL IV SCH (22:20)
[2020-12-19] MEDS: ISOSORBIDE MONONITRATE IR 20 MG TAB PO SCH (22:20)
[2020-12-19] MEDS: traZODone HCL 50 MG TAB PO SCH (22:20)
[2020-12-20] MEDS: ALBUTEROL SULF 2.5 MG/0.5ML(0.5%) NEB SOLN NEB SCH ×4 (00:27→18:33)
[2020-12-20] MEDS: IPRATROPIUM BROM 0.5 MG/2.5ML INH SOL NEB SCH ×4 (00:27→18:33)
[2020-12-20] MEDS: SODIUM CHLORIDE 0.9% 1,000 ML IV SCH ×3 (01:24→18:18)
[2020-12-20] MEDS: metroNIDAZOLE 500MG/100ML 100 ML IV SCH ×3 (05:30→20:43)
[2020-12-20] MEDS: BUDESONIDE (INHALATION) 0.5 MG/2 ML NEB NEB SCH ×2 (06:03→18:33)
[2020-12-20 08:18] LABS: Alanine Aminotransferase 13 U/L (13-56); Albumin 2.9 g/dL (3.4-5.0); Anion Gap 8 (5-15); Aspartate Aminotransferase 13 U/L (15-37); BUN/Creatinine Ratio 14.7; Blood Urea Nitrogen 15 mg/dL (7-18); Calcium 8.4 mg/dL (8.5-10.1); Carbon Dioxide 23 mmol/L (21-32); Chloride 108 mmol/L (98-107); GFR African American 66 mL/min; GFR Non-African American 54 mL/min; Glucose 119 mg/dL (74-106); Sodium 139 mmol/L (136-145)
[2020-12-20 08:22] LABS: Alkaline Phosphatase 47 U/L (45-117); Bilirubin, Total 0.6 mg/dL (0.2-1.0); Total Protein 5.8 g/dL (6.4-8.2)
[2020-12-20] MEDS: methylPREDNISolone SOD SUCC 40 MG/ML VL IV SCH (09:15)
[2020-12-20] MEDS: ASPirin 81 mg TAB PO SCH (09:15)
[2020-12-20] MEDS: FAMOTIDINE (10MG/ML) 2ML VL IV SCH (09:15)
[2020-12-20] MEDS: ISOSORBIDE MONONITRATE IR 20 MG TAB PO SCH ×2 (09:15→20:36)
[2020-12-20] MEDS: MONTELUKAST SODIUM 10 MG TAB PO SCH (09:16)
[2020-12-20] MEDS: ALBUTEROL SULF 2.5 MG/0.5ML(0.5%) NEB SOLN NEB PRN (09:24)
[2020-12-20] MEDS ORDERED: ENOXAPARIN SOD 40 MG/0.4 ML SYRINGE SC SCH (10:00)
[2020-12-20] MEDS ORDERED: levoFLOXacin 500MG 100 ML IV SCH (10:00)
[2020-12-20] MEDS: ACETAMINOPHEN/CODEINE#3 (300/30mg) TAB PO PRN ×3 (10:19→20:40)
[2020-12-20 10:27] LABS: Basophils # (auto) 0 10 ^3/uL (0-0.2); Eosinophils # (auto) 0 10 ^3/uL (0-0.8); Lymphocytes # (auto) 0.4 10 ^3/uL (0.4-5.4)
[2020-12-20 10:29] LABS: Basophils % (auto) 0.4 % (0.0-2.0); Hematocrit 33.6 % (36.0-46.0); Mean Corpuscular Hemoglobin 26.9 pg (28.0-32.0); Mean Corpuscular Hgb Conc. 32.8 g/dL (32.0-36.0); Mean Corpuscular Volume 81.9 fL (80.0-100.0); Monocytes # (auto) 0.1 10 ^3/uL (0-1.3); Monocytes % (auto) 1.4 % (0.0-12.0); Neutrophils # (auto) 9.7 10 ^3/uL (1.6-8.6); Neutrophils % (auto) 94.2 % (37.0-80.0); Platelet Count (auto) 173 10^3/uL (140-450); Red Cell Distribution Width 15.8 % (11.8-14.3); White Blood Cell 10.3 10^3/uL (4.4-10.8)
[2020-12-20 11:10] LABS: Albumin 2.8 g/dL (3.4-5.0); Anion Gap 8 (5-15); Blood Urea Nitrogen 14 mg/dL (7-18); Calcium 8.5 mg/dL (8.5-10.1); Carbon Dioxide 21 mmol/L (21-32); Chloride 109 mmol/L (98-107); Glucose 119 mg/dL (74-106); Potassium 4.1 mmol/L (3.5-5.1); Sodium 138 mmol/L (136-145)
[2020-12-20 11:14] LABS: Alanine Aminotransferase 13 U/L (13-56); Alkaline Phosphatase 44 U/L (45-117); Aspartate Aminotransferase 17 U/L (15-37); BUN/Creatinine Ratio 18.2; Bilirubin, Total 0.6 mg/dL (0.2-1.0); GFR African American 91 mL/min; GFR Non-African American 75 mL/min; Total Protein 5.9 g/dL (6.4-8.2)
[2020-12-20] MEDS ORDERED: FUROSEMIDE 40 MG/4 ML VIAL IV ONE (11:30)
[2020-12-20] MEDS ORDERED: HEPARIN DRIP/D5W 100UNITS/ML 250 ML IV SCH (13:15)
[2020-12-20] MEDS ORDERED: HEPARIN SODIUM (PORCINE) 5000 UNITS/ML 1ML VIAL IV ONE ×3 (13:15→13:45)
[2020-12-20] MEDS: ENOXAPARIN SOD 60 MG/0.6 ML SYRINGE SC SCH ×2 (13:57→20:42)
[2020-12-20] MEDS ORDERED: AMIODARONE HCL 200 MG TAB PO ONE (14:30)
[2020-12-20 17:00] VITALS: BP 108/83
[2020-12-20] MEDS: AMIODARONE HCL 200 MG TAB PO SCH (20:37)
[2020-12-20] MEDS: METOPROLOL TARTRATE 25 MG TAB PO SCH (20:44)
[2020-12-20 21:00] VITALS: BP 101/41
[2020-12-20 22:00] VITALS: BP 109/38
[2020-12-20] MEDS: traZODone HCL 50 MG TAB PO SCH (22:00)
[2020-12-20 23:00] VITALS: BP 109/37
[2020-12-21] VITALS (16 sets, daily range): BP systolic 94–135; BP diastolic 34–63
[2020-12-21] MEDS: IPRATROPIUM BROM 0.5 MG/2.5ML INH SOL NEB SCH ×4 (00:08→19:19)
[2020-12-21] MEDS: ALBUTEROL SULF 2.5 MG/0.5ML(0.5%) NEB SOLN NEB SCH ×4 (00:08→19:19)
[2020-12-21] MEDS: SODIUM CHLORIDE 0.9% 1,000 ML IV SCH ×3 (05:31→21:52)
[2020-12-21] MEDS: metroNIDAZOLE 500MG/100ML 100 ML IV SCH ×3 (05:31→21:13)
[2020-12-21] MEDS: ONDANSETRON HCL 4 MG/2 ML VIAL IV PRN (05:33)
[2020-12-21] MEDS: BUDESONIDE (INHALATION) 0.5 MG/2 ML NEB NEB SCH ×2 (06:10→19:19)
[2020-12-21] MEDS: ACETAMINOPHEN/CODEINE#3 (300/30mg) TAB PO PRN ×2 (08:35→16:15)
[2020-12-21] MEDS: FAMOTIDINE (10MG/ML) 2ML VL IV SCH (09:16)
[2020-12-21] MEDS: levoFLOXacin 250MG 50 ML IV SCH (09:16)
[2020-12-21] MEDS: FUROSEMIDE 40 MG/4 ML VIAL IV SCH (09:17)
[2020-12-21] MEDS: ENOXAPARIN SOD 60 MG/0.6 ML SYRINGE SC SCH ×2 (09:17→22:03)
[2020-12-21] MEDS: ISOSORBIDE MONONITRATE IR 20 MG TAB PO SCH ×2 (09:18→20:39)
[2020-12-21] MEDS: ASPirin 81 mg TAB PO SCH (09:18)
[2020-12-21] MEDS: MONTELUKAST SODIUM 10 MG TAB PO SCH (09:19)
[2020-12-21] MEDS: METOPROLOL TARTRATE 25 MG TAB PO SCH ×2 (11:05→20:39)
[2020-12-21] MEDS: AMIODARONE HCL 200 MG TAB PO SCH (11:52)
[2020-12-21] MEDS ORDERED: ATROPINE SULFATE 1 MG/1 ML VIAL ONE (17:24)
[2020-12-21 20:02] LABS: BUN/Creatinine Ratio 20.2; Calcium 8.2 mg/dL (8.5-10.1); Magnesium 2.2 mg/dL (1.6-2.6)
[2020-12-21] MEDS: traZODone HCL 50 MG TAB PO SCH (21:13)
[2020-12-21] MEDS ORDERED: POTASSIUM CHL 20MEQ/100ML 100 ML IV ONE (21:15)
[2020-12-22] VITALS (8 sets, daily range): BP systolic 105–133; BP diastolic 60–89
[2020-12-22] MEDS: ALBUTEROL SULF 2.5 MG/0.5ML(0.5%) NEB SOLN NEB SCH ×4 (00:51→20:35)
[2020-12-22] MEDS: IPRATROPIUM BROM 0.5 MG/2.5ML INH SOL NEB SCH ×4 (00:52→20:35)
[2020-12-22] MEDS: ALBUTEROL SULF 2.5 MG/0.5ML(0.5%) NEB SOLN NEB PRN ×3 (04:43→16:12)
[2020-12-22] MEDS: BUDESONIDE (INHALATION) 0.5 MG/2 ML NEB NEB SCH ×2 (06:07→22:52)
[2020-12-22] MEDS: SODIUM CHLORIDE 0.9% 1,000 ML IV SCH ×3 (07:04→21:00)
[2020-12-22] MEDS: metroNIDAZOLE 500MG/100ML 100 ML IV SCH ×3 (07:04→22:38)
[2020-12-22] MEDS: levoFLOXacin 250MG 50 ML IV SCH (11:00)
[2020-12-22] MEDS: ENOXAPARIN SOD 60 MG/0.6 ML SYRINGE SC SCH ×2 (11:00→22:39)
[2020-12-22] MEDS: MONTELUKAST SODIUM 10 MG TAB PO SCH (11:01)
[2020-12-22] MEDS: FUROSEMIDE 40 MG/4 ML VIAL IV SCH (11:01)
[2020-12-22] MEDS: ISOSORBIDE MONONITRATE IR 20 MG TAB PO SCH ×2 (11:10→22:39)
[2020-12-22] MEDS: ASPirin 81 mg TAB PO SCH (11:12)
[2020-12-22] MEDS: FAMOTIDINE (10MG/ML) 2ML VL IV SCH (11:12)
[2020-12-22] MEDS: METOPROLOL TARTRATE 25 MG TAB PO SCH ×2 (12:03→21:22)
[2020-12-22] MEDS ORDERED: dilTIAZem 25 MG/5 ML VIAL IV ONE (14:15)
[2020-12-22] MEDS: ACETAMINOPHEN/CODEINE#3 (300/30mg) TAB PO PRN (20:15)
[2020-12-22] MEDS: traZODone HCL 50 MG TAB PO SCH (22:00)
[2020-12-23] MEDS: IPRATROPIUM BROM 0.5 MG/2.5ML INH SOL NEB SCH ×3 (00:35→11:45)
[2020-12-23] MEDS: ALBUTEROL SULF 2.5 MG/0.5ML(0.5%) NEB SOLN NEB SCH ×3 (00:36→11:45)
[2020-12-23 05:00] VITALS: BP 120/66
[2020-12-23] MEDS: ONDANSETRON HCL 4 MG/2 ML VIAL IV PRN (05:28)
[2020-12-23] MEDS: metroNIDAZOLE 500MG/100ML 100 ML IV SCH ×2 (05:29→14:09)
[2020-12-23 05:32] LABS: Basophils # (auto) 0 10 ^3/uL (0-0.2); Hemoglobin 11.7 g/dL (12.2-16.2); Monocytes # (auto) 0.4 10 ^3/uL (0-1.3); Neutrophils # (auto) 4.7 10 ^3/uL (1.6-8.6); White Blood Cell 6.3 10^3/uL (4.4-10.8)
[2020-12-23 05:36] LABS: Basophils % (auto) 0.6 % (0.0-2.0); Eosinophils # (auto) 0.1 10 ^3/uL (0-0.8); Hematocrit 34.9 % (36.0-46.0); Lymphocytes % (auto) 16.5 % (10.0-50.0); Mean Corpuscular Hemoglobin 26.9 pg (28.0-32.0); Mean Corpuscular Hgb Conc. 33.6 g/dL (32.0-36.0); Mean Corpuscular Volume 80.1 fL (80.0-100.0); Monocytes % (auto) 6.3 % (0.0-12.0); Neutrophils % (auto) 74.6 % (37.0-80.0); Platelet Count (auto) 172 10^3/uL (140-450); Red Blood Cells 4.36 10^6/uL (4.0-5.20); Red Cell Distribution Width 15.9 % (11.8-14.3)
[2020-12-23 05:56] LABS: Calcium 8.3 mg/dL (8.5-10.1); Magnesium 1.9 mg/dL (1.6-2.6); Potassium 3.3 mmol/L (3.5-5.1)
[2020-12-23 05:59] LABS: BUN/Creatinine Ratio 19.7
[2020-12-23] MEDS: SODIUM CHLORIDE 0.9% 1,000 ML IV SCH (06:50)
[2020-12-23] MEDS: BUDESONIDE (INHALATION) 0.5 MG/2 ML NEB NEB SCH (06:53)
[2020-12-23 08:35] VITALS: BP 107/71
[2020-12-23] MEDS: ENOXAPARIN SOD 60 MG/0.6 ML SYRINGE SC SCH (10:14)
[2020-12-23] MEDS: MONTELUKAST SODIUM 10 MG TAB PO SCH (10:14)
[2020-12-23] MEDS: levoFLOXacin 250MG 50 ML IV SCH (10:15)
[2020-12-23] MEDS: FUROSEMIDE 40 MG/4 ML VIAL IV SCH (10:15)
[2020-12-23] MEDS: ASPirin 81 mg TAB PO SCH (10:15)
[2020-12-23] MEDS: FAMOTIDINE (10MG/ML) 2ML VL IV SCH (10:15)
[2020-12-23] MEDS: ISOSORBIDE MONONITRATE IR 20 MG TAB PO SCH (10:16)
[2020-12-23] MEDS: METOPROLOL TARTRATE 25 MG TAB PO SCH (10:16)
[2020-12-23] MEDS ORDERED: dilTIAZem 25 MG/5 ML VIAL IV ONE (12:30)
[2020-12-23] MEDS ORDERED: MAGNESIUM SULFATE 1GM/100ML 100 ML IV ONE (12:30)
[2020-12-23] MEDS ORDERED: POTASSIUM EFFERVESENT TAB 25 MEQ GT ONE (12:30)
[2020-12-23 13:11] VITALS: BP 121/76
[2020-12-23] MEDS ORDERED: FUROSEMIDE 20 MG/2 ML VIAL IV ONE (14:30)
[2020-12-23] MEDS ORDERED: POTASSIUM CHL 20 Meq TABLET PO ONE (14:30)
[2020-12-23 15:51] VITALS: BP 121/76
[2020-12-23] MEDS ORDERED: AMIODARONE HCL 200 MG TAB PO SCH (22:00)
[2020-12-23] MEDS ORDERED: MAGNESIUM OXIDE 400 MG TAB PO SCH (22:00)
[2020-12-24] MEDS ORDERED: POTASSIUM EFFERVESENT TAB 25 MEQ GT SCH (10:00)
== END 2020-12-23 17:10 | disposition home or self-care (01) | DRG 871 ==
LOC: ER 07:33 → EDBD 07:33 → OVERFLOW 12:50 → DOU IN ICU 12-20 16:35 → TELE-WESTW 12-20 16:37
PROVIDERS: ADMIT Internal Medicine; ATTEND Internal Medicine
DX: A41.9 Sepsis, unspecified organism (principal); I26.99 Other pulmonary embolism without acute cor pulmonale; J44.1 Chronic obstructive pulmonary disease with (acute) exacerbation; E44.0 Moderate protein-calorie malnutrition; I48.92 Unspecified atrial flutter; I82.401 Acute embolism and thrombosis of unspecified deep veins of right lower extremity; J96.10 Chronic respiratory failure, unspecified whether with hypoxia or hypercapnia; N39.0 Urinary tract infection, site not specified; D68.59 Other primary thrombophilia; K52.9 Noninfective gastroenteritis and colitis, unspecified; I48.91 Unspecified atrial fibrillation; E87.6 Hypokalemia; E78.5 Hyperlipidemia, unspecified; I73.9 Peripheral vascular disease, unspecified; I10 Essential (primary) hypertension; I25.10 Atherosclerotic heart disease of native coronary artery without angina pectoris; Z66 Do not resuscitate; Z20.822 Contact with and (suspected) exposure to COVID-19; D64.9 Anemia, unspecified; Z88.8 Allergy status to other drugs, medicaments and biological substances; Z68.21 Body mass index [BMI] 21.0-21.9, adult; Z79.01 Long term (current) use of anticoagulants; Z82.49 Family history of ischemic heart disease and other diseases of the circulatory system; Z82.5 Family history of asthma and other chronic lower respiratory diseases; Z83.3 Family history of diabetes mellitus; Z85.3 Personal history of malignant neoplasm of breast; Z90.710 Acquired absence of both cervix and uterus
CPT/HCPCS: 36415; 71045; 71275; 74176; 80048; 80053; 81001; 82150; 82550; 83036; 83690; 83735; 83880; 84439; 84443; 84484; 85025; 85379; 87086; 87088; 87186; 87426; 87493; 87804; 93005; 93306; 93925; 93970; 94640; 96361; 96365; 96367; 96368; 96372; 96375; G0378; J0461; J1956; J2405; J3480; J3490; J7060

== ENCOUNTER 2021-01-14 22:52 | Inpatient (IN) | payer MEDICARE, MEDICAID ==
[~2021-01-14] VITALS: Ht 154.9 cm; Wt 55.2 kg
[2021-01-14 23:50] LABS: Eosinophils # (auto) 0 10 ^3/uL (0-0.8); Eosinophils % (auto) 0.1 % (0.0-7.0); Hemoglobin 10.1 g/dL (12.2-16.2); Lymphocytes # (auto) 0.3 10 ^3/uL (0.4-5.4); White Blood Cell 12.8 10^3/uL (4.4-10.8)
[2021-01-14 23:52] LABS: Basophils # (auto) 0 10 ^3/uL (0-0.2); Basophils % (auto) 0.3 % (0.0-2.0); Hematocrit 30.5 % (36.0-46.0); Lymphocytes % (auto) 2.3 % (10.0-50.0); Mean Corpuscular Hemoglobin 26.4 pg (28.0-32.0); Mean Corpuscular Volume 80.1 fL (80.0-100.0); Monocytes # (auto) 0.5 10 ^3/uL (0-1.3); Monocytes % (auto) 3.7 % (0.0-12.0); Neutrophils % (auto) 93.6 % (37.0-80.0); Platelet Count (auto) 163 10^3/uL (140-450); Red Blood Cells 3.81 10^6/uL (4.0-5.20); Red Cell Distribution Width 16.7 % (11.8-14.3)
[2021-01-15] VITALS (7 sets, daily range): BP systolic 97–132; BP diastolic 51–68
[2021-01-15 00:11] LABS: Albumin 3.2 g/dL (3.4-5.0); Anion Gap 6 (5-15); Blood Urea Nitrogen 15 mg/dL (7-18); Calcium 8.8 mg/dL (8.5-10.1); Carbon Dioxide 25 mmol/L (21-32); Chloride 107 mmol/L (98-107); Glucose 105 mg/dL (74-106); Magnesium 2.4 mg/dL (1.6-2.6); Potassium 3.8 mmol/L (3.5-5.1); Sodium 138 mmol/L (136-145)
[2021-01-15 00:17] LABS: Alanine Aminotransferase 13 U/L (13-56); Alkaline Phosphatase 47 U/L (45-117); Aspartate Aminotransferase 13 U/L (15-37); BUN/Creatinine Ratio 16.3; Bilirubin, Total 0.3 mg/dL (0.2-1.0); GFR African American 74 mL/min; GFR Non-African American 61 mL/min; Total Protein 6.4 g/dL (6.4-8.2)
[2021-01-15] MEDS ORDERED: IPRATROPIUM BROM 0.5 MG/2.5ML INH SOL NEB ONE (00:45)
[2021-01-15] MEDS ORDERED: ALBUTEROL SULF 2.5 MG/0.5ML(0.5%) NEB SOLN NEB ONE (00:45)
[2021-01-15] MEDS ORDERED: methylPREDNISolone SOD SUCC 125 MG/2 ML VL IV ONE (03:00)
[2021-01-15] MEDS ORDERED: levoFLOXacin 500MG 100 ML IV ONE (03:00)
[2021-01-15] MEDS ORDERED: NITROGLYCERIN 0.4 MG SL TAB SL PRN (05:15)
[2021-01-15] MEDS ORDERED: ACETAMINOPHEN 325 MG TAB PO PRN (05:15)
[2021-01-15] MEDS ORDERED: HYDROcodone-ACET 5/325MG TAB PO PRN (05:15)
[2021-01-15] MEDS ORDERED: MORPHINE SULF INJ 2 MG/ML SYRINGE 1ML IV PRN (05:15)
[2021-01-15] MEDS ORDERED: ONDANSETRON HCL 4 MG/2 ML VIAL IV PRN (05:15)
[2021-01-15] MEDS ORDERED: DOCUSATE SOD 100 MG CAP PO PRN (05:15)
[2021-01-15] MEDS: ALBUTEROL SULF 2.5 MG/0.5ML(0.5%) NEB SOLN NEB SCH ×5 (05:47→23:03)
[2021-01-15] MEDS: IPRATROPIUM BROM 0.5 MG/2.5ML INH SOL NEB SCH ×5 (05:47→23:03)
[2021-01-15] MEDS: methylPREDNISolone SOD SUCC 40 MG/ML VL IV SCH ×2 (06:00→13:03)
[2021-01-15] MEDS: SODIUM CHLOR 0.9% PF (SALINE LOCK) 10ML VIAL/SYR IV SCH ×3 (06:00→22:14)
[2021-01-15 08:05] LABS: Basophils # (auto) 0 10 ^3/uL (0-0.2); Basophils % (auto) 0.2 % (0.0-2.0); Eosinophils # (auto) 0 10 ^3/uL (0-0.8); Eosinophils % (auto) 0.1 % (0.0-7.0); Hemoglobin 10.9 g/dL (12.2-16.2); Lymphocytes # (auto) 0.2 10 ^3/uL (0.4-5.4); Lymphocytes % (auto) 1.5 % (10.0-50.0)
[2021-01-15 08:07] LABS: Hematocrit 32.4 % (36.0-46.0); Mean Corpuscular Hemoglobin 26.6 pg (28.0-32.0); Mean Corpuscular Hgb Conc. 33.7 g/dL (32.0-36.0); Mean Corpuscular Volume 78.9 fL (80.0-100.0); Monocytes # (auto) 0.2 10 ^3/uL (0-1.3); Monocytes % (auto) 1.5 % (0.0-12.0); Neutrophils # (auto) 12.8 10 ^3/uL (1.6-8.6); Neutrophils % (auto) 96.7 % (37.0-80.0); Nucleated Red Blood Cells % 0.1 %; Platelet Count (auto) 165 10^3/uL (140-450); Red Blood Cells 4.11 10^6/uL (4.0-5.20); Red Cell Distribution Width 16.6 % (11.8-14.3); White Blood Cell 13.2 10^3/uL (4.4-10.8)
[2021-01-15 08:18] LABS: Albumin 2.9 g/dL (3.4-5.0); BUN/Creatinine Ratio 17.1; Calcium 9.1 mg/dL (8.5-10.1); Potassium 3.9 mmol/L (3.5-5.1)
[2021-01-15 08:21] LABS: Bilirubin, Total 0.5 mg/dL (0.2-1.0); Total Protein 6.5 g/dL (6.4-8.2)
[2021-01-15] MEDS ORDERED: FAMOTIDINE 20 MG TAB PO SCH (10:00)
[2021-01-15] MEDS: levoFLOXacin 500MG 100 ML IV SCH (10:00)
[2021-01-15] MEDS: MULTIPLE VITAMIN TAB PO SCH (10:00)
[2021-01-15] MEDS ORDERED: MET25T PO (10:23)
[2021-01-15] MEDS ORDERED: FURO20TA3 PO (10:23)
[2021-01-15] MEDS ORDERED: POTA8TAB15 PO (10:23)
[2021-01-15] MEDS ORDERED: BUSP15TA60 PO (10:23)
[2021-01-15] MEDS: ASCORBIC ACID 500 MG TAB PO SCH ×2 (10:37→22:16)
[2021-01-15] MEDS: ENOXAPARIN SOD 40 MG/0.4 ML SYRINGE SC SCH (10:37)
[2021-01-15] MEDS: ZINC SULFATE 220mg CAP or TAB PO SCH (10:38)
[2021-01-15] MEDS ORDERED: ACETAMINOPHEN/CODEINE#3 (300/30mg) TAB PO PRN ×2 (16:30→16:45)
[2021-01-15] MEDS: THEOPHYLLINE 80 MG/15ml ORAL Elixir PO SCH ×2 (18:02→22:16)
[2021-01-15] MEDS: ISOSORBIDE MONONITRATE IR 20 MG TAB PO SCH (22:00)
[2021-01-15] MEDS ORDERED: MONTELUKAST SODIUM 10 MG TAB PO SCH (22:00)
[2021-01-15] MEDS ORDERED: traZODone HCL 50 MG TAB PO SCH (22:00)
[2021-01-15] MEDS: FLUTICASONE PROP NASAL SPR 0.05 % (50MCG) 16GM EACHNOSTRI SCH (22:13)
[2021-01-16 05:00] VITALS: BP 115/60
[2021-01-16] MEDS: THEOPHYLLINE 80 MG/15ml ORAL Elixir PO SCH ×2 (06:10→12:15)
[2021-01-16] MEDS: SODIUM CHLOR 0.9% PF (SALINE LOCK) 10ML VIAL/SYR IV SCH (06:10)
[2021-01-16 07:10] LABS: Basophils # (auto) 0 10 ^3/uL (0-0.2); Eosinophils # (auto) 0 10 ^3/uL (0-0.8); Hemoglobin 10.5 g/dL (12.2-16.2); Lymphocytes # (auto) 0.3 10 ^3/uL (0.4-5.4); White Blood Cell 15.6 10^3/uL (4.4-10.8)
[2021-01-16] MEDS: ALBUTEROL SULF 2.5 MG/0.5ML(0.5%) NEB SOLN NEB SCH ×3 (07:11→13:46)
[2021-01-16] MEDS: IPRATROPIUM BROM 0.5 MG/2.5ML INH SOL NEB SCH ×3 (07:11→13:46)
[2021-01-16 07:13] LABS: Basophils % (auto) 0.1 % (0.0-2.0); Lymphocytes % (auto) 1.8 % (10.0-50.0); Mean Corpuscular Hemoglobin 25.9 pg (28.0-32.0); Mean Corpuscular Hgb Conc. 32.7 g/dL (32.0-36.0); Mean Corpuscular Volume 79.2 fL (80.0-100.0); Monocytes # (auto) 0.5 10 ^3/uL (0-1.3); Monocytes % (auto) 3.1 % (0.0-12.0); Neutrophils # (auto) 14.8 10 ^3/uL (1.6-8.6); Platelet Count (auto) 176 10^3/uL (140-450); Red Blood Cells 4.04 10^6/uL (4.0-5.20); Red Cell Distribution Width 16.6 % (11.8-14.3)
[2021-01-16 07:17] LABS: Calcium 9.8 mg/dL (8.5-10.1); Potassium 4.1 mmol/L (3.5-5.1)
[2021-01-16 07:21] LABS: BUN/Creatinine Ratio 23.9; Bilirubin, Total 0.4 mg/dL (0.2-1.0); Total Protein 6.3 g/dL (6.4-8.2)
[2021-01-16 08:00] VITALS: BP 149/98
[2021-01-16] MEDS: levoFLOXacin 500MG 100 ML IV SCH ×2 (09:59→10:00)
[2021-01-16] MEDS: FLUTICASONE PROP NASAL SPR 0.05 % (50MCG) 16GM EACHNOSTRI SCH (09:59)
[2021-01-16] MEDS: ZINC SULFATE 220mg CAP or TAB PO SCH (10:00)
[2021-01-16] MEDS: MULTIPLE VITAMIN TAB PO SCH (10:00)
[2021-01-16] MEDS: ISOSORBIDE MONONITRATE IR 20 MG TAB PO SCH (10:00)
[2021-01-16] MEDS ORDERED: predniSONE 5 MG TAB PO SCH (10:00)
[2021-01-16] MEDS: ASCORBIC ACID 500 MG TAB PO SCH (10:00)
[2021-01-16] MEDS: ENOXAPARIN SOD 40 MG/0.4 ML SYRINGE SC SCH (10:00)
[2021-01-16] MEDS ORDERED: PANTOPRAZOLE 40 MG TAB PO SCH (10:00)
[2021-01-16 12:00] VITALS: BP 100/72
[2021-01-16 12:32] VITALS: BP 100/72
== END 2021-01-16 13:27 | disposition home or self-care (01) | DRG 190 ==
LOC: ER 22:52 → EDUNIT# 22:52 → EDBD 22:52 → TELE 01-15 05:13 → TELE-WESTW 01-15 08:20
PROVIDERS: ADMIT Nurse Practitioner Family; ATTEND Nurse Practitioner Family
DX: J44.1 Chronic obstructive pulmonary disease with (acute) exacerbation (principal); J18.9 Pneumonia, unspecified organism; J45.901 Unspecified asthma with (acute) exacerbation; E44.0 Moderate protein-calorie malnutrition; D68.69 Other thrombophilia; J44.0 Chronic obstructive pulmonary disease with (acute) lower respiratory infection; J20.9 Acute bronchitis, unspecified; R09.02 Hypoxemia; R06.03 Acute respiratory distress; Z20.822 Contact with and (suspected) exposure to COVID-19; E78.5 Hyperlipidemia, unspecified; I10 Essential (primary) hypertension; I25.10 Atherosclerotic heart disease of native coronary artery without angina pectoris; I48.0 Paroxysmal atrial fibrillation; Z82.49 Family history of ischemic heart disease and other diseases of the circulatory system; Z82.5 Family history of asthma and other chronic lower respiratory diseases; Z83.3 Family history of diabetes mellitus; Z90.710 Acquired absence of both cervix and uterus; Z90.49 Acquired absence of other specified parts of digestive tract; Z88.8 Allergy status to other drugs, medicaments and biological substances
CPT/HCPCS: 36415; 36600; 80053; 82805; 83735; 83880; 84484; 85025; 85049; 87040; 87070; 87081; 87205; 87426; 94640; 96365; 96375; G0378; J1956

== ENCOUNTER 2021-02-07 15:56 | Inpatient (IN) | payer MEDICARE, MEDICAID ==
[~2021-02-07] VITALS: Ht 154.9 cm; Wt 61.1 kg
[~2021-02-07 15:56] MED LIST changes: +BUSP15TA60 PO; +FURO20TA3 PO; +MET25T PO; +POTA8TAB15 PO
[2021-02-07 16:59] LABS: Basophils # (auto) 0.1 10 ^3/uL (0-0.2); Basophils % (auto) 0.8 % (0.0-2.0); Eosinophils # (auto) 0 10 ^3/uL (0-0.8); Eosinophils % (auto) 0.3 % (0.0-7.0); Hematocrit 32.9 % (36.0-46.0); Hemoglobin 10.5 g/dL (12.2-16.2); Lymphocytes # (auto) 0.4 10 ^3/uL (0.4-5.4); Lymphocytes % (auto) 3.7 % (10.0-50.0); Mean Corpuscular Hemoglobin 24.4 pg (28.0-32.0); Mean Corpuscular Volume 76.4 fL (80.0-100.0); Monocytes # (auto) 0.4 10 ^3/uL (0-1.3); Monocytes % (auto) 3.3 % (0.0-12.0); Neutrophils % (auto) 91.9 % (37.0-80.0); Red Cell Distribution Width 16.8 % (11.8-14.3)
[2021-02-07] MEDS ORDERED: metroNIDAZOLE 500MG/100ML 100 ML IV ONE (17:15)
[2021-02-07] MEDS ORDERED: cefTRIAXone 1GM/50ML D5W 50 ML IV ONE (17:15)
[2021-02-07 17:18] LABS: Albumin 3.4 g/dL (3.4-5.0); Anion Gap 7 (5-15); Calcium 9.1 mg/dL (8.5-10.1); Carbon Dioxide 26 mmol/L (21-32); Chloride 105 mmol/L (98-107); Glucose 112 mg/dL (74-106); Lipase 41 U/L (73-393); Sodium 138 mmol/L (136-145)
[2021-02-07 17:22] LABS: Alanine Aminotransferase 17 U/L (13-56); Alkaline Phosphatase 64 U/L (45-117); Aspartate Aminotransferase 14 U/L (15-37); BUN/Creatinine Ratio 15.1; Bilirubin, Total 0.4 mg/dL (0.2-1.0); Blood Urea Nitrogen 14 mg/dL (7-18); GFR African American 73 mL/min; GFR Non-African American 61 mL/min
[2021-02-07] MEDS ORDERED: ACETAMINOPHEN 325 MG TAB PO PRN (22:00)
[2021-02-07] MEDS ORDERED: ONDANSETRON HCL 4 MG/2 ML VIAL IV PRN (22:00)
[2021-02-07] MEDS ORDERED: TEMAZEPAM 15 MG CAP PO PRN (22:00)
[2021-02-07 23:01] LABS: Urine Bacteria MOD /hpf (None Seen); Urine Blood Negative /uL (Negative); Urine Specific Gravity 1.007 (1.001-1.035); Urine WBC 1 /hpf (0 - 5)
[2021-02-08] MEDS: CLINDAMYCIN 600MG IV 50 ML IV SCH ×4 (00:01→23:40)
[2021-02-08] MEDS: METOPROLOL TARTRATE 25 MG TAB PO SCH ×3 (00:02→22:00)
[2021-02-08] MEDS: MONTELUKAST SODIUM 10 MG TAB PO SCH ×2 (00:02→23:40)
[2021-02-08 01:20] VITALS: BP 128/62
[2021-02-08] MEDS: ALBUTEROL SULF 2.5 MG/0.5ML(0.5%) NEB SOLN NEB PRN ×2 (06:56→15:14)
[2021-02-08] MEDS: IPRATROPIUM BROM 0.5 MG/2.5ML INH SOL NEB PRN ×2 (06:57→15:14)
[2021-02-08 08:17] LABS: Eosinophils # (auto) 0.1 10 ^3/uL (0-0.8); Mean Corpuscular Volume 77.3 fL (80.0-100.0); Monocytes # (auto) 0.7 10 ^3/uL (0-1.3); Red Cell Distribution Width 16.6 % (11.8-14.3)
[2021-02-08 08:18] LABS: Basophils # (auto) 0.1 10 ^3/uL (0-0.2); Basophils % (auto) 0.6 % (0.0-2.0); Eosinophils % (auto) 0.9 % (0.0-7.0); Lymphocytes % (auto) 9.7 % (10.0-50.0); Mean Corpuscular Hemoglobin 25.8 pg (28.0-32.0); Mean Corpuscular Hgb Conc. 33.3 g/dL (32.0-36.0); Monocytes % (auto) 7.1 % (0.0-12.0); Neutrophils # (auto) 8.4 10 ^3/uL (1.6-8.6); Neutrophils % (auto) 81.7 % (37.0-80.0); Nucleated Red Blood Cells % 0.2 %; Red Blood Cells 4.27 10^6/uL (4.0-5.20); White Blood Cell 10.3 10^3/uL (4.4-10.8)
[2021-02-08 08:44] LABS: BUN/Creatinine Ratio 19.5; Calcium 9.1 mg/dL (8.5-10.1)
[2021-02-08] MEDS: cefTRIAXone 1GM/50ML D5W 50 ML IV SCH (09:29)
[2021-02-08 09:50] LABS: INR 0.99 (0.9-1.15); Partial Thromboplastin Time 25.2 sec (23.0-31.2)
[2021-02-08] MEDS: predniSONE 5 MG TAB PO SCH (11:12)
[2021-02-08] MEDS: FUROSEMIDE 20 MG TAB PO SCH (11:13)
[2021-02-08] MEDS: ISOSORBIDE MONONITRATE ER 60 MG TAB PO SCH (11:13)
[2021-02-08] MEDS ORDERED: PRED1PAK9 PO (11:23)
[2021-02-08] MEDS ORDERED: LIDOCAINE W/ EPINEPHRINE 1% 20ML VIAL ONE (14:31)
[2021-02-08] MEDS ORDERED: BUPIVACAINE 0.25% INJ 50ML VIAL ONE (14:31)
[2021-02-08] MEDS: HYDROcodone-ACET 5/325MG TAB PO PRN (20:00)
[2021-02-08 22:30] VITALS: BP 109/63
[2021-02-08 23:00] VITALS: BP 109/63
[2021-02-08] MEDS: AMIODARONE HCL 200 MG TAB PO SCH (23:40)
[2021-02-09 05:00] VITALS: BP 147/64
[2021-02-09] MEDS: CLINDAMYCIN 600MG IV 50 ML IV SCH ×3 (05:25→21:49)
[2021-02-09 06:03] LABS: Basophils # (auto) 0 10 ^3/uL (0-0.2); Basophils % (auto) 0.6 % (0.0-2.0); Eosinophils # (auto) 0.1 10 ^3/uL (0-0.8); Monocytes # (auto) 0.4 10 ^3/uL (0-1.3); Neutrophils # (auto) 5.2 10 ^3/uL (1.6-8.6); White Blood Cell 6.8 10^3/uL (4.4-10.8)
[2021-02-09 06:05] LABS: Eosinophils % (auto) 1.5 % (0.0-7.0); Hemoglobin 10.6 g/dL (12.2-16.2); Lymphocytes % (auto) 15.1 % (10.0-50.0); Mean Corpuscular Hemoglobin 25.4 pg (28.0-32.0); Mean Corpuscular Hgb Conc. 32.9 g/dL (32.0-36.0); Monocytes % (auto) 6.4 % (0.0-12.0); Neutrophils % (auto) 76.4 % (37.0-80.0); Red Blood Cells 4.16 10^6/uL (4.0-5.20); Red Cell Distribution Width 16.9 % (11.8-14.3)
[2021-02-09 06:21] LABS: Magnesium 2.5 mg/dL (1.6-2.6); Potassium 3.5 mmol/L (3.5-5.1)
[2021-02-09] MEDS: ALBUTEROL SULF 2.5 MG/0.5ML(0.5%) NEB SOLN NEB PRN ×2 (07:08→18:46)
[2021-02-09] MEDS: IPRATROPIUM BROM 0.5 MG/2.5ML INH SOL NEB PRN ×2 (07:08→18:46)
[2021-02-09] MEDS: cefTRIAXone 1GM/50ML D5W 50 ML IV SCH (08:44)
[2021-02-09 09:00] VITALS: BP 128/55
[2021-02-09] MEDS: ISOSORBIDE MONONITRATE ER 60 MG TAB PO SCH (09:56)
[2021-02-09] MEDS: predniSONE 5 MG TAB PO SCH (09:57)
[2021-02-09] MEDS: AMIODARONE HCL 200 MG TAB PO SCH ×2 (09:57→21:44)
[2021-02-09] MEDS: FUROSEMIDE 20 MG TAB PO SCH (09:58)
[2021-02-09] MEDS: METOPROLOL TARTRATE 25 MG TAB PO SCH ×2 (09:59→21:45)
[2021-02-09] MEDS ORDERED: ceFAZolin 1GM/50ML 100 ML IV ONE (10:49)
[2021-02-09] MEDS ORDERED: MEPERIDINE HCL (25 MG/ML) 1ML VIAL ONE (12:03)
[2021-02-09] MEDS ORDERED: KETAMINE HCL 10 ML ONE (12:03)
[2021-02-09] MEDS ORDERED: fentaNYL CITRATE 100 MCG/2 ML VL ONE (12:03)
[2021-02-09] MEDS ORDERED: MIDAZOLAM HCL 2MG/2ML 2ml VIAL (1mg/ml) ONE (12:04)
[2021-02-09] MEDS ORDERED: LIDOCAINE W/ EPINEPHRINE 1% 20ML VIAL ONE (12:04)
[2021-02-09] MEDS ORDERED: BUPIVACAINE 0.25% INJ 50ML VIAL ONE (12:04)
[2021-02-09 12:37] VITALS: BP 125/70
[2021-02-09] MEDS ORDERED: DexAMETHasone SOD PHOS 10MG/1ML VIAL INJ ONE (12:37)
[2021-02-09] MEDS ORDERED: PROPOFOL 10 MG/ML 20 ML IV ONE (12:49)
[2021-02-09] MEDS ORDERED: MIDAZOLAM HCL 2MG/2ML 2ml VIAL (1mg/ml) IV PRN (13:00)
[2021-02-09] MEDS ORDERED: hydrALAZINE HCL 20 MG/ML VL IV PRN (13:00)
[2021-02-09] MEDS ORDERED: ePHEDrine SULFATE 50 MG/ML AMP IV PRN (13:00)
[2021-02-09] MEDS ORDERED: LABETALOL HCL 5 MG/ML 4ML SYRINGE IV PRN (13:00)
[2021-02-09] MEDS ORDERED: ONDANSETRON HCL 4 MG/2 ML VIAL IV PRN (13:00)
[2021-02-09] MEDS ORDERED: MORPHINE SULFATE 4 MG/ML SYR/VIAL IV PRN (13:00)
[2021-02-09] MEDS: HYDROmorphone HCL 2 MG/ML VL IV PRN ×2 (14:02→14:15)
[2021-02-09 17:00] VITALS: BP 118/63
[2021-02-09] MEDS: HYDROcodone-ACET 5/325MG TAB PO PRN (19:22)
[2021-02-09] MEDS: MONTELUKAST SODIUM 10 MG TAB PO SCH (21:44)
[2021-02-09 22:00] VITALS: BP 106/59
[2021-02-10] MEDS: HYDROcodone-ACET 5/325MG TAB PO PRN ×2 (01:41→07:02)
[2021-02-10 05:00] VITALS: BP 129/63
[2021-02-10] MEDS: CLINDAMYCIN 600MG IV 50 ML IV SCH ×3 (06:00→21:29)
[2021-02-10 09:06] VITALS: BP 163/83
[2021-02-10] MEDS: AMIODARONE HCL 200 MG TAB PO SCH ×3 (09:17→21:46)
[2021-02-10] MEDS: ISOSORBIDE MONONITRATE ER 60 MG TAB PO SCH (09:17)
[2021-02-10] MEDS: predniSONE 5 MG TAB PO SCH (09:18)
[2021-02-10] MEDS: FUROSEMIDE 20 MG TAB PO SCH (09:18)
[2021-02-10] MEDS: METOPROLOL TARTRATE 25 MG TAB PO SCH ×2 (09:18→21:30)
[2021-02-10] MEDS: IPRATROPIUM BROM 0.5 MG/2.5ML INH SOL NEB PRN ×2 (10:15→20:15)
[2021-02-10] MEDS: ALBUTEROL SULF 2.5 MG/0.5ML(0.5%) NEB SOLN NEB PRN ×2 (10:15→20:15)
[2021-02-10] MEDS ORDERED: MORPHINE SULFATE 4 MG/ML SYR/VIAL IV PRN (11:15)
[2021-02-10] MEDS ORDERED: NITROGLYCERIN 0.4 MG SL TAB SL PRN (11:15)
[2021-02-10] MEDS: cefTRIAXone 1GM/50ML D5W 50 ML IV SCH (11:42)
[2021-02-10 12:41] VITALS: BP 115/55
[2021-02-10 14:23] LABS: Basophils # (auto) 0 10 ^3/uL (0-0.2); Eosinophils # (auto) 0 10 ^3/uL (0-0.8); Hematocrit 30.9 % (36.0-46.0); Lymphocytes # (auto) 0.8 10 ^3/uL (0.4-5.4); Monocytes # (auto) 0.4 10 ^3/uL (0-1.3); Monocytes % (auto) 3.5 % (0.0-12.0)
[2021-02-10 14:25] LABS: Basophils % (auto) 0.2 % (0.0-2.0); Eosinophils % (auto) 0.1 % (0.0-7.0); Hemoglobin 9.8 g/dL (12.2-16.2); Lymphocytes % (auto) 6.7 % (10.0-50.0); Mean Corpuscular Hemoglobin 24.7 pg (28.0-32.0); Mean Corpuscular Hgb Conc. 31.7 g/dL (32.0-36.0); Mean Corpuscular Volume 77.9 fL (80.0-100.0); Neutrophils # (auto) 10.7 10 ^3/uL (1.6-8.6); Neutrophils % (auto) 89.5 % (37.0-80.0); Nucleated Red Blood Cells % 0.1 %; Red Blood Cells 3.96 10^6/uL (4.0-5.20); Red Cell Distribution Width 16.6 % (11.8-14.3)
[2021-02-10 14:50] LABS: Albumin 2.5 g/dL (3.4-5.0); Anion Gap 9 (5-15); Blood Urea Nitrogen 15 mg/dL (7-18); Calcium 8.9 mg/dL (8.5-10.1); Carbon Dioxide 23 mmol/L (21-32); Chloride 110 mmol/L (98-107); Glucose 114 mg/dL (74-106); Potassium 3.3 mmol/L (3.5-5.1); Sodium 142 mmol/L (136-145)
[2021-02-10 14:55] LABS: Alanine Aminotransferase 10 U/L (13-56); Alkaline Phosphatase 49 U/L (45-117); Aspartate Aminotransferase 11 U/L (15-37); BUN/Creatinine Ratio 12.5; Bilirubin, Total 0.2 mg/dL (0.2-1.0); GFR African American 55 mL/min; GFR Non-African American 45 mL/min; Total Protein 5.4 g/dL (6.4-8.2)
[2021-02-10] MEDS ORDERED: POTASSIUM CHL 20 Meq TABLET PO ONE (16:00)
[2021-02-10 16:28] VITALS: BP 117/63
[2021-02-10] MEDS: HYDROmorphone HCL 2 MG/ML VL IV PRN ×2 (18:37→22:59)
[2021-02-10 20:14] VITALS: BP 97/52
[2021-02-10] MEDS: MONTELUKAST SODIUM 10 MG TAB PO SCH (21:31)
[2021-02-10 22:00] VITALS: BP 97/52
[2021-02-10] MEDS ORDERED: APIXABAN 5 MG TAB PO SCH (22:00)
[2021-02-11] MEDS: HYDROmorphone HCL 2 MG/ML VL IV PRN (03:44)
[2021-02-11 05:00] VITALS: BP 107/50
[2021-02-11] MEDS: CLINDAMYCIN 600MG IV 50 ML IV SCH (06:38)
[2021-02-11] MEDS: IPRATROPIUM BROM 0.5 MG/2.5ML INH SOL NEB PRN (07:06)
[2021-02-11] MEDS: ALBUTEROL SULF 2.5 MG/0.5ML(0.5%) NEB SOLN NEB PRN (07:06)
[2021-02-11 08:53] VITALS: BP 118/52
[2021-02-11] MEDS ORDERED: ISOSORBIDE MONONITRATE IR 20 MG TAB PO SCH (10:00)
[2021-02-11 12:36] VITALS: BP 118/87
[2021-02-11 14:01] VITALS: BP 97/52
== END 2021-02-11 15:00 | disposition home or self-care (01) | DRG 902 ==
LOC: ER 15:56 → TELE 21:54 → EAST 02-08 22:43 → WEST WING 02-09 14:53 → TELE-WESTW 02-10 18:51
PROVIDERS: ADMIT Nurse Practitioner; ATTEND Family Medicine
PROC: 0JB90ZZ Excision of Buttock Subcutaneous Tissue and Fascia, Open Approach (ICD-10-PCS; principal; 2021-02-09 12:25)
PROC: 05HA33Z Insertion of Infusion Device into Left Brachial Vein, Percutaneous Approach (ICD-10-PCS; 2021-02-10)
PROC: B54NZZA Ultrasonography of Left Upper Extremity Veins, Guidance (ICD-10-PCS; 2021-02-10)
DX: T81.89XA Other complications of procedures, not elsewhere classified, initial encounter (principal); L02.214 Cutaneous abscess of groin; J96.10 Chronic respiratory failure, unspecified whether with hypoxia or hypercapnia; R65.10 Systemic inflammatory response syndrome (SIRS) of non-infectious origin without acute organ dysfunction; Y83.8 Other surgical procedures as the cause of abnormal reaction of the patient, or of later complication, without mention of misadventure at the time of the procedure; E78.5 Hyperlipidemia, unspecified; E87.6 Hypokalemia; I48.0 Paroxysmal atrial fibrillation; I05.0 Rheumatic mitral stenosis; K44.9 Diaphragmatic hernia without obstruction or gangrene; K59.00 Constipation, unspecified; T38.0X5A Adverse effect of glucocorticoids and synthetic analogues, initial encounter; D64.9 Anemia, unspecified; J44.9 Chronic obstructive pulmonary disease, unspecified; I73.9 Peripheral vascular disease, unspecified; R07.89 Other chest pain; B95.62 Methicillin resistant Staphylococcus aureus infection as the cause of diseases classified elsewhere; Z20.822 Contact with and (suspected) exposure to COVID-19; I50.9 Heart failure, unspecified; Z82.49 Family history of ischemic heart disease and other diseases of the circulatory system; Z82.5 Family history of asthma and other chronic lower respiratory diseases; Z83.3 Family history of diabetes mellitus; Z86.711 Personal history of pulmonary embolism; Z79.52 Long term (current) use of systemic steroids; Z86.718 Personal history of other venous thrombosis and embolism; Z90.710 Acquired absence of both cervix and uterus; Y92.89 Other specified places as the place of occurrence of the external cause; Z79.01 Long term (current) use of anticoagulants; Z88.8 Allergy status to other drugs, medicaments and biological substances; Z90.49 Acquired absence of other specified parts of digestive tract
CPT/HCPCS: 36415; 71045; 71250; 74176; 76705; 80048; 80053; 81001; 83605; 83690; 83735; 84484; 85025; 85610; 85730; 86850; 86900; 86901; 87040; 87070; 87075; 87077; 87081; 87186; 87205; 87426; 93005; 94640; 96365; 96368; G0378; J0690; J0696; J1100; J2250; J2405; J2704; J3490

== ENCOUNTER 2021-05-19 00:58 | Inpatient (IN) | payer MEDICARE, MEDICAID ==
[~2021-05-19] VITALS: Ht 160 cm; Wt 53.9 kg
[~2021-05-19 00:58] MED LIST changes: +MONT-8 PO; -MONT10TA42 PO; -PRE5T PO; +PRED1PAK9 PO
[2021-05-19] MEDS ORDERED: methylPREDNISolone SOD SUCC 125 MG/2 ML VL ONE (01:06)
[2021-05-19] MEDS ORDERED: ALBUTEROL SULF 2.5 MG/0.5ML(0.5%) NEB SOLN ONE (01:07)
[2021-05-19] MEDS ORDERED: MAGNESIUM SULFATE 1GM/100ML 100 ML IV ONE ×2 (01:07→01:30)
[2021-05-19] MEDS ORDERED: IPRATROPIUM BROM 0.5 MG/2.5ML INH SOL ONE (01:08)
[2021-05-19] MEDS ORDERED: methylPREDNISolone SOD SUCC 125 MG/2 ML VL IV ONE (01:30)
[2021-05-19] MEDS ORDERED: FUROSEMIDE 20 MG/2 ML VIAL IV ONE (02:15)
[2021-05-19 02:48] LABS: INR 0.98 (0.9-1.15)
[2021-05-19 02:49] LABS: Basophils # (auto) 0 10 ^3/uL (0-0.2); Eosinophils # (auto) 0.1 10 ^3/uL (0-0.8); Hemoglobin 8.8 g/dL (12.2-16.2); Mean Corpuscular Hgb Conc. 31.1 g/dL (32.0-36.0); Monocytes # (auto) 0.4 10 ^3/uL (0-1.3); White Blood Cell 15.3 10^3/uL (4.4-10.8)
[2021-05-19 02:50] LABS: Basophils % (auto) 0.1 % (0.0-2.0); Eosinophils % (auto) 0.6 % (0.0-7.0); Hematocrit 28.3 % (36.0-46.0); Lymphocytes # (auto) 0.7 10 ^3/uL (0.4-5.4); Lymphocytes % (auto) 4.8 % (10.0-50.0); Mean Corpuscular Hemoglobin 22.7 pg (28.0-32.0); Mean Corpuscular Volume 73.1 fL (80.0-100.0); Monocytes % (auto) 2.5 % (0.0-12.0); Red Blood Cells 3.87 10^6/uL (4.0-5.20); Red Cell Distribution Width 19.5 % (11.8-14.3)
[2021-05-19 03:07] LABS: BUN/Creatinine Ratio 18.8; Calcium 8.7 mg/dL (8.5-10.1); Magnesium 2.9 mg/dL (1.6-2.6); Potassium 3.9 mmol/L (3.5-5.1)
[2021-05-19 03:14] LABS: Bilirubin, Total 0.4 mg/dL (0.2-1.0)
[2021-05-19] MEDS ORDERED: cefTRIAXone 1GM/50ML D5W 50 ML IV ONE (03:30)
[2021-05-19] MEDS ORDERED: AZITHROMYCIN 500MG/ 250ML 250 ML IV ONE (03:30)
[2021-05-19 04:46] VITALS: BP 131/76
[2021-05-19] MEDS ORDERED: NITROGLYCERIN 0.4 MG SL TAB SL PRN (06:30)
[2021-05-19] MEDS ORDERED: ACETAMINOPHEN 325 MG TAB PO PRN (06:30)
[2021-05-19] MEDS ORDERED: TEMAZEPAM 15 MG CAP PO PRN (06:30)
[2021-05-19] MEDS ORDERED: ONDANSETRON HCL 4 MG/2 ML VIAL IV PRN (06:30)
[2021-05-19] MEDS ORDERED: IOHEXOL 350 MG/ML 100ML IJ ONE (06:36)
[2021-05-19] MEDS: ISOSORBIDE MONONITRATE IR 20 MG TAB PO SCH (09:13)
[2021-05-19] MEDS: methylPREDNISolone SOD SUCC 125 MG/2 ML VL IV SCH ×2 (09:13→21:06)
[2021-05-19] MEDS: METOPROLOL TARTRATE 25 MG TAB PO SCH ×2 (09:14→21:06)
[2021-05-19] MEDS: ENOXAPARIN SOD 40 MG/0.4 ML SYRINGE SC SCH (09:14)
[2021-05-19] MEDS ORDERED: FUROSEMIDE 20 MG TAB PO SCH (10:00)
[2021-05-19] MEDS ORDERED: PANTOPRAZOLE 40 MG TAB PO SCH (10:00)
[2021-05-19] MEDS: IPRATROPIUM BROM 0.5 MG/2.5ML INH SOL NEB SCH ×2 (13:48→19:05)
[2021-05-19] MEDS: ALBUTEROL SULF 2.5 MG/0.5ML(0.5%) NEB SOLN NEB PRN ×2 (13:48→19:05)
[2021-05-19 18:27] VITALS: BP 92/52
[2021-05-19 18:40] VITALS: BP 92/52
[2021-05-19] MEDS: MONTELUKAST SODIUM 10 MG TAB PO SCH (21:06)
[2021-05-19] MEDS ORDERED: PRED1PAK8 PO (21:52)
[2021-05-19] MEDS ORDERED: IPR002IS NEB (21:52)
[2021-05-19] MEDS ORDERED: ALBU0.084 NEB (21:52)
[2021-05-19] MEDS ORDERED: ISOS1TAB28 PO (21:52)
[2021-05-19] MEDS ORDERED: APIX5TAB PO (21:52)
[2021-05-19] MEDS ORDERED: DICL1GEL50 TD (21:56)
[2021-05-19 22:00] VITALS: BP 102/49
[2021-05-19] MEDS ORDERED: PIPERACILLIN-TAZOB 3.375GM 100 ML IV ONE (23:30)
[2021-05-20] MEDS: IPRATROPIUM BROM 0.5 MG/2.5ML INH SOL NEB SCH ×4 (01:09→18:46)
[2021-05-20] MEDS: ALBUTEROL SULF 2.5 MG/0.5ML(0.5%) NEB SOLN NEB PRN ×3 (01:09→18:46)
[2021-05-20 05:00] VITALS: BP 112/72
[2021-05-20] MEDS: PIPERACILLIN-TAZOB 3.375GM 100 ML IV SCH ×3 (05:33→22:19)
[2021-05-20 06:18] LABS: Basophils # (auto) 0 10 ^3/uL (0-0.2); Eosinophils # (auto) 0 10 ^3/uL (0-0.8); Hemoglobin 8.9 g/dL (12.2-16.2); Lymphocytes # (auto) 0.3 10 ^3/uL (0.4-5.4); Lymphocytes % (auto) 1.6 % (10.0-50.0); Mean Corpuscular Volume 72.8 fL (80.0-100.0); Monocytes # (auto) 0.3 10 ^3/uL (0-1.3)
[2021-05-20 06:22] LABS: Basophils % (auto) 0.2 % (0.0-2.0); Hematocrit 28.2 % (36.0-46.0); Mean Corpuscular Hemoglobin 22.9 pg (28.0-32.0); Mean Corpuscular Hgb Conc. 31.4 g/dL (32.0-36.0); Neutrophils # (auto) 15.9 10 ^3/uL (1.6-8.6); Neutrophils % (auto) 96.2 % (37.0-80.0); Red Blood Cells 3.87 10^6/uL (4.0-5.20); Red Cell Distribution Width 19.2 % (11.8-14.3); White Blood Cell 16.5 10^3/uL (4.4-10.8)
[2021-05-20 06:59] LABS: Potassium 3.5 mmol/L (3.5-5.1)
[2021-05-20 07:00] LABS: Albumin 2.7 g/dL (3.4-5.0); BUN/Creatinine Ratio 31.1; Bilirubin, Total 0.7 mg/dL (0.2-1.0); Total Protein 5.7 g/dL (6.4-8.2)
[2021-05-20 08:39] VITALS: BP 98/59
[2021-05-20] MEDS ORDERED: cefTRIAXone 1GM/50ML D5W 50 ML IV SCH (09:00)
[2021-05-20] MEDS: FUROSEMIDE 20 MG/2 ML VIAL IV SCH (09:14)
[2021-05-20] MEDS: ISOSORBIDE MONONITRATE IR 20 MG TAB PO SCH (09:15)
[2021-05-20] MEDS: METOPROLOL TARTRATE 25 MG TAB PO SCH ×2 (09:15→22:00)
[2021-05-20] MEDS ORDERED: AZITHROMYCIN 500MG/ 250ML 250 ML IV SCH (10:00)
[2021-05-20] MEDS ORDERED: predniSONE 20 MG TAB PO SCH (10:00)
[2021-05-20] MEDS: ENOXAPARIN SOD 40 MG/0.4 ML SYRINGE SC SCH (10:40)
[2021-05-20 12:42] VITALS: BP 92/50
[2021-05-20 16:46] VITALS: BP 108/57
[2021-05-20 21:30] VITALS: BP 91/58
[2021-05-20] MEDS ORDERED: APIXABAN 2.5 MG TAB PO SCH (22:00)
[2021-05-20] MEDS: APIXABAN 5 MG TAB PO SCH (22:19)
[2021-05-20] MEDS: MONTELUKAST SODIUM 10 MG TAB PO SCH (22:20)
[2021-05-21 05:00] VITALS: BP 101/63
[2021-05-21] MEDS: PIPERACILLIN-TAZOB 3.375GM 100 ML IV SCH ×3 (06:07→22:55)
[2021-05-21] MEDS: ALBUTEROL SULF 2.5 MG/0.5ML(0.5%) NEB SOLN NEB PRN ×3 (07:46→19:13)
[2021-05-21] MEDS: IPRATROPIUM BROM 0.5 MG/2.5ML INH SOL NEB SCH ×4 (07:46→19:13)
[2021-05-21 09:00] VITALS: BP 108/60
[2021-05-21] MEDS: ISOSORBIDE MONONITRATE IR 20 MG TAB PO SCH (10:25)
[2021-05-21] MEDS: METOPROLOL TARTRATE 25 MG TAB PO SCH ×2 (10:26→22:56)
[2021-05-21] MEDS: FUROSEMIDE 20 MG/2 ML VIAL IV SCH (10:26)
[2021-05-21] MEDS: GEMFIBROZIL 600 MG TAB PO SCH (10:27)
[2021-05-21] MEDS: predniSONE 20 MG TAB PO SCH (10:27)
[2021-05-21] MEDS: APIXABAN 5 MG TAB PO SCH ×2 (10:27→22:56)
[2021-05-21 13:00] VITALS: BP 104/56
[2021-05-21] MEDS ORDERED: traMADol HCL 50 MG TAB PO PRN (13:45)
[2021-05-21] MEDS: guaiFENesin-DM 100/10mg/5ml SYR PO PRN ×2 (14:12→22:56)
[2021-05-21 16:51] VITALS: BP 92/59
[2021-05-21 22:00] VITALS: BP 111/66
[2021-05-21] MEDS: MONTELUKAST SODIUM 10 MG TAB PO SCH (22:55)
[2021-05-22] MEDS: ALBUTEROL SULF 2.5 MG/0.5ML(0.5%) NEB SOLN NEB PRN (01:30)
[2021-05-22] MEDS: IPRATROPIUM BROM 0.5 MG/2.5ML INH SOL NEB SCH ×4 (01:30→19:53)
[2021-05-22 05:00] VITALS: BP 122/66
[2021-05-22] MEDS: PIPERACILLIN-TAZOB 3.375GM 100 ML IV SCH ×3 (05:58→22:04)
[2021-05-22 08:49] VITALS: BP 123/69
[2021-05-22] MEDS: APIXABAN 5 MG TAB PO SCH ×2 (10:09→22:04)
[2021-05-22] MEDS: predniSONE 20 MG TAB PO SCH (10:09)
[2021-05-22] MEDS: ISOSORBIDE MONONITRATE IR 20 MG TAB PO SCH (10:09)
[2021-05-22] MEDS: METOPROLOL TARTRATE 25 MG TAB PO SCH ×2 (10:10→22:00)
[2021-05-22] MEDS: GEMFIBROZIL 600 MG TAB PO SCH (10:10)
[2021-05-22] MEDS: FUROSEMIDE 20 MG/2 ML VIAL IV SCH (10:36)
[2021-05-22 12:00] VITALS: BP 108/51
[2021-05-22] MEDS: guaiFENesin-DM 100/10mg/5ml SYR PO PRN (15:31)
[2021-05-22] MEDS ORDERED: ALPRAZolam 0.25 MG TAB PO ONE (16:00)
[2021-05-22 17:20] VITALS: BP 97/76
[2021-05-22 18:20] VITALS: BP 98/60
[2021-05-22 22:00] VITALS: BP 115/59
[2021-05-22] MEDS: MONTELUKAST SODIUM 10 MG TAB PO SCH (22:04)
[2021-05-23 03:48] VITALS: BP 111/51
[2021-05-23 05:00] VITALS: BP 104/47
[2021-05-23] MEDS: PIPERACILLIN-TAZOB 3.375GM 100 ML IV SCH ×3 (05:03→22:21)
[2021-05-23] MEDS: IPRATROPIUM BROM 0.5 MG/2.5ML INH SOL NEB SCH ×4 (06:51→18:52)
[2021-05-23] MEDS: ALBUTEROL SULF 2.5 MG/0.5ML(0.5%) NEB SOLN NEB PRN ×3 (06:51→18:57)
[2021-05-23 09:00] VITALS: BP 121/61
[2021-05-23] MEDS: predniSONE 20 MG TAB PO SCH (09:44)
[2021-05-23] MEDS: FUROSEMIDE 20 MG/2 ML VIAL IV SCH ×2 (09:44→17:40)
[2021-05-23] MEDS: APIXABAN 5 MG TAB PO SCH ×2 (09:44→22:21)
[2021-05-23] MEDS: GEMFIBROZIL 600 MG TAB PO SCH (09:45)
[2021-05-23] MEDS: ISOSORBIDE MONONITRATE IR 20 MG TAB PO SCH (09:45)
[2021-05-23] MEDS: METOPROLOL TARTRATE 25 MG TAB PO SCH (09:45)
[2021-05-23 11:50] VITALS: BP 104/55
[2021-05-23 17:00] VITALS: BP 95/58
[2021-05-23] MEDS: MONTELUKAST SODIUM 10 MG TAB PO SCH (22:21)
[2021-05-23 22:51] VITALS: BP 109/66
[2021-05-24] MEDS: IPRATROPIUM BROM 0.5 MG/2.5ML INH SOL NEB SCH ×4 (00:35→18:26)
[2021-05-24] MEDS: MORPHINE SULFATE INJECTION 2 MG/ML SYRG IV PRN ×2 (05:36→06:45)
[2021-05-24] MEDS ORDERED: DIGOXIN (250MCG/ML) 2 ML AMPULE IV ONE ×2 (05:45→06:05)
[2021-05-24] MEDS: FUROSEMIDE 20 MG/2 ML VIAL IV SCH ×2 (06:43→17:58)
[2021-05-24] MEDS: PIPERACILLIN-TAZOB 3.375GM 100 ML IV SCH ×3 (06:44→22:05)
[2021-05-24] MEDS: ALBUTEROL SULF 2.5 MG/0.5ML(0.5%) NEB SOLN NEB PRN ×3 (07:08→18:26)
[2021-05-24 07:10] LABS: Calcium 9.6 mg/dL (8.5-10.1); Magnesium 3.1 mg/dL (1.6-2.6); Potassium 3.2 mmol/L (3.5-5.1)
[2021-05-24 07:12] LABS: BUN/Creatinine Ratio 27.5
[2021-05-24 09:00] VITALS: BP 101/50
[2021-05-24] MEDS: APIXABAN 5 MG TAB PO SCH ×2 (09:29→22:05)
[2021-05-24] MEDS: predniSONE 20 MG TAB PO SCH (09:29)
[2021-05-24] MEDS: GEMFIBROZIL 600 MG TAB PO SCH (09:30)
[2021-05-24] MEDS: ISOSORBIDE MONONITRATE IR 20 MG TAB PO SCH (09:30)
[2021-05-24] MEDS: METOPROLOL TARTRATE 25 MG TAB PO SCH ×2 (10:00→22:00)
[2021-05-24] MEDS ORDERED: POTASSIUM CHL 20 Meq TABLET PO ONE (12:30)
[2021-05-24 13:00] VITALS: BP 93/60
[2021-05-24 16:56] VITALS: BP 95/55
[2021-05-24 22:00] VITALS: BP 105/56
[2021-05-24] MEDS: MONTELUKAST SODIUM 10 MG TAB PO SCH (22:05)
[2021-05-25 05:00] VITALS: BP 108/60
[2021-05-25] MEDS: FUROSEMIDE 20 MG/2 ML VIAL IV SCH (06:00)
[2021-05-25] MEDS: PIPERACILLIN-TAZOB 3.375GM 100 ML IV SCH ×2 (06:00→11:31)
[2021-05-25] MEDS: IPRATROPIUM BROM 0.5 MG/2.5ML INH SOL NEB SCH ×3 (06:45→12:07)
[2021-05-25] MEDS: ALBUTEROL SULF 2.5 MG/0.5ML(0.5%) NEB SOLN NEB PRN ×2 (06:45→12:07)
[2021-05-25 09:00] VITALS: BP 99/45
[2021-05-25] MEDS: ISOSORBIDE MONONITRATE IR 20 MG TAB PO SCH (10:00)
[2021-05-25 11:17] VITALS: BP 99/45
[2021-05-25] MEDS: METOPROLOL TARTRATE 25 MG TAB PO SCH (11:29)
[2021-05-25] MEDS: predniSONE 20 MG TAB PO SCH (11:32)
[2021-05-25] MEDS: APIXABAN 5 MG TAB PO SCH (11:32)
[2021-05-25 13:00] VITALS: BP 122/61
[2021-05-25] MEDS: GEMFIBROZIL 600 MG TAB PO SCH (15:41)
[2021-05-25 17:00] VITALS: BP 108/55
== END 2021-05-25 17:30 | disposition home health service (06) | DRG 871 ==
LOC: ER 00:58 → EDBD 00:58 → TELE 06:27 → TELE-WESTW 17:58
PROVIDERS: ADMIT Nurse Practitioner; ATTEND Internal Medicine
PROC: 5A09357 Assistance with Respiratory Ventilation, Less than 24 Consecutive Hours, Continuous Positive Airway Pressure (ICD-10-PCS; principal; 2021-05-19)
PROC: 5A0935A Assistance with Respiratory Ventilation, Less than 24 Consecutive Hours, High Flow/Velocity Cannula (ICD-10-PCS; 2021-05-19)
DX: A41.9 Sepsis, unspecified organism (principal); J15.1 Pneumonia due to Pseudomonas; J96.21 Acute and chronic respiratory failure with hypoxia; I50.33 Acute on chronic diastolic (congestive) heart failure; D64.9 Anemia, unspecified; I48.0 Paroxysmal atrial fibrillation; I73.9 Peripheral vascular disease, unspecified; R07.89 Other chest pain; Z20.822 Contact with and (suspected) exposure to COVID-19; E78.5 Hyperlipidemia, unspecified; I05.0 Rheumatic mitral stenosis; I11.0 Hypertensive heart disease with heart failure; J43.9 Emphysema, unspecified; T38.0X5A Adverse effect of glucocorticoids and synthetic analogues, initial encounter; Z79.01 Long term (current) use of anticoagulants; Z82.49 Family history of ischemic heart disease and other diseases of the circulatory system; Z82.5 Family history of asthma and other chronic lower respiratory diseases; Z83.3 Family history of diabetes mellitus; Z85.3 Personal history of malignant neoplasm of breast; Z86.711 Personal history of pulmonary embolism; Z86.718 Personal history of other venous thrombosis and embolism; Z87.891 Personal history of nicotine dependence; Z90.710 Acquired absence of both cervix and uterus; Z90.13 Acquired absence of bilateral breasts and nipples; Z88.8 Allergy status to other drugs, medicaments and biological substances; Y92.89 Other specified places as the place of occurrence of the external cause; D72.829 Elevated white blood cell count, unspecified
CPT/HCPCS: 36415; 36600; 71045; 71275; 80048; 80053; 82805; 82962; 83605; 83735; 83880; 84484; 85025; 85379; 85610; 87040; 87070; 87077; 87186; 87205; 87426; 87493; 93005; 94640; 94660; 96365; 96375; 97110; 97116; G0378; J0696; J2405; J2543

== ENCOUNTER 2021-07-14 09:04 | Emergency (ER) | payer MEDICARE, MEDICAID ==
[~2021-07-14] VITALS: Ht 167.6 cm; Wt 66.2 kg
[~2021-07-14 09:04] MED LIST changes: +ALBU0.084 NEB; +APIX5TAB PO; +DICL1GEL50 TD; +IPR002IS NEB; -IPRA0.00 NEB; -ISO20T PO; +ISOS1TAB28 PO; +PRED1PAK8 PO; -PRED1PAK9 PO
[2021-07-14 09:09] VITALS: BP 122/72
[2021-07-14 10:06] LABS: Albumin 3.1 g/dL (3.4-5.0); Calcium 8.9 mg/dL (8.5-10.1); Magnesium 3.4 mg/dL (1.6-2.6); Potassium 3.4 mmol/L (3.5-5.1)
[2021-07-14 10:11] LABS: BUN/Creatinine Ratio 17.2; Bilirubin, Total 0.3 mg/dL (0.2-1.0); Total Protein 6.2 g/dL (6.4-8.2)
== END 2021-07-14 10:05 | disposition left against medical advice (07) ==
LOC: ER 09:04 → EDBD 09:04 → ER 10:05
DX: J44.1 Chronic obstructive pulmonary disease with (acute) exacerbation (principal); I11.0 Hypertensive heart disease with heart failure; I50.9 Heart failure, unspecified; Z90.710 Acquired absence of both cervix and uterus; Z20.822 Contact with and (suspected) exposure to COVID-19; Z87.891 Personal history of nicotine dependence
CPT/HCPCS: 36415; 71045; 80053; 83735; 84484; 87426; 93005

== ENCOUNTER 2021-12-14 09:38 | Inpatient (IN) | payer MEDICARE, MEDICAID ==
[~2021-12-14] VITALS: Ht 154.9 cm; Wt 54.4 kg
[2021-12-14] MEDS ORDERED: methylPREDNISolone SOD SUCC 125 MG/2 ML VL IV ONE (12:45)
[2021-12-14] MEDS ORDERED: ALBUTEROL SULF 2.5 MG/0.5ML(0.5%) NEB SOLN NEB ONE (12:45)
[2021-12-14] MEDS ORDERED: SODIUM CHLORIDE 0.9% 1,000 ML IV ONE (12:45)
[2021-12-14] MEDS ORDERED: IPRATROPIUM BROM 0.5 MG/2.5ML INH SOL NEB ONE (12:45)
[2021-12-14 14:34] LABS: Basophils # (auto) 0.2 10 ^3/uL (0-0.2); Basophils % (auto) 0.8 % (0.0-2.0); Eosinophils # (auto) 0 10 ^3/uL (0-0.8); Eosinophils % (auto) 0.1 % (0.0-7.0); Hematocrit 43.9 % (36.0-46.0); Hemoglobin 14.2 g/dL (12.2-16.2); Lymphocytes # (auto) 0.6 10 ^3/uL (0.4-5.4); Lymphocytes % (auto) 2.8 % (10.0-50.0); Mean Corpuscular Hemoglobin 27.6 pg (28.0-32.0); Mean Corpuscular Hgb Conc. 32.4 g/dL (32.0-36.0); Mean Corpuscular Volume 84.9 fL (80.0-100.0); Monocytes # (auto) 0.5 10 ^3/uL (0-1.3); Monocytes % (auto) 2.4 % (0.0-12.0); Neutrophils % (auto) 93.9 % (37.0-80.0); Red Blood Cells 5.17 10^6/uL (4.0-5.20); Red Cell Distribution Width 15.2 % (11.8-14.3); White Blood Cell 22.4 10^3/uL (4.4-10.8)
[2021-12-14 14:45] LABS: Albumin 3.6 g/dL (3.4-5.0); Calcium 10.4 mg/dL (8.5-10.1); Magnesium 2.4 mg/dL (1.6-2.6); Potassium 3.7 mmol/L (3.5-5.1)
[2021-12-14] MEDS ORDERED: ACETAMINOPHEN/CODEINE#3 (300/30mg) TAB PO ONE (14:45)
[2021-12-14 14:47] LABS: BUN/Creatinine Ratio 14.7
[2021-12-14 14:50] LABS: Bilirubin, Total 0.7 mg/dL (0.2-1.0); Total Protein 7.4 g/dL (6.4-8.2)
[2021-12-14 14:55] LABS: INR 0.99 (0.9-1.15); Partial Thromboplastin Time 21.9 sec (23.6-33.0)
[2021-12-14] MEDS ORDERED: dilTIAZem 25 MG/5 ML VIAL IV ONE ×2 (16:00→21:44)
[2021-12-14 18:25] LABS: Urine Bacteria NONE SEEN /hpf (None Seen); Urine Blood Negative /uL (Negative); Urine Specific Gravity 1.008 (1.001-1.035); Urine WBC <1 /hpf (0 - 5)
[2021-12-14] MEDS ORDERED: cefTRIAXone 1GM/50ML D5W 50 ML IV ONE (18:45)
[2021-12-14] MEDS: dilTIAZem 125mg/125ml BAG KIT 100 ML IV SCH (21:50)
[2021-12-15] MEDS ORDERED: HEPARIN SODIUM (PORCINE) 5000 UNITS/ML 1ML VIAL IV ONE (08:30)
[2021-12-15] MEDS: METOPROLOL TARTRATE 25 MG TAB PO SCH ×3 (10:24→22:34)
[2021-12-15 10:38] LABS: Hemoglobin 13.4 g/dL (12.2-16.2); Mean Corpuscular Hemoglobin 27.4 pg (28.0-32.0); Mean Corpuscular Hgb Conc. 32.7 g/dL (32.0-36.0); Mean Corpuscular Volume 83.8 fL (80.0-100.0); Red Cell Distribution Width 15.1 % (11.8-14.3); White Blood Cell 14.6 10^3/uL (4.4-10.8)
[2021-12-15 10:58] LABS: INR 0.99 (0.9-1.15); Partial Thromboplastin Time 22.2 sec (23.6-33.0)
[2021-12-15 11:13] LABS: Band Neutrophils % (manual) 0; Basophils % (manual) 0 (0.0-2.0); Blast Cells 0; Eosinophils % (manual) 0 (0-7); Metamyelocytes % 0; Monocytes % (manual) 0 (0-12); Myelocytes % 0; Promyelocytes % 0; Reactive Lymphocytes 0
[2021-12-15] MEDS ORDERED: IPRATROPIUM BROM 0.5 MG/2.5ML INH SOL ONE (11:53)
[2021-12-15] MEDS ORDERED: ALBUTEROL SULF 2.5 MG/0.5ML(0.5%) NEB SOLN ONE (11:53)
[2021-12-15] MEDS: HEPARIN DRIP/D5W 100UNITS/ML 250 ML IV SCH ×2 (11:59→21:29)
[2021-12-15] MEDS ORDERED: ALBUTEROL SULF 2.5 MG/0.5ML(0.5%) NEB SOLN NEB ONE (12:15)
[2021-12-15 12:44] LABS: Lymphocytes % (manual) 4 (10.0-50.0)
[2021-12-15] MEDS: IPRATROPIUM BROM 0.5 MG/2.5ML INH SOL NEB PRN (12:44)
[2021-12-15 16:45] VITALS: BP 116/58
[2021-12-15] MEDS: dilTIAZem 125mg/125ml BAG KIT 100 ML IV SCH (19:30)
[2021-12-15 20:22] LABS: INR 1.02 (0.9-1.15)
[2021-12-15 20:27] LABS: Partial Thromboplastin Time > 139.0 sec (23.6-33.0)
[2021-12-16] MEDS: IPRATROPIUM BROM 0.5 MG/2.5ML INH SOL NEB PRN ×2 (09:48→20:36)
[2021-12-16] MEDS: ALBUTEROL SULF 2.5 MG/0.5ML(0.5%) NEB SOLN NEB PRN ×2 (09:48→20:36)
[2021-12-16] MEDS ORDERED: NITROGLYCERIN 0.4 MG SL TAB SL PRN (10:15)
[2021-12-16 10:22] LABS: INR 0.97 (0.9-1.15)
[2021-12-16 10:36] LABS: INR 0.99 (0.9-1.15)
[2021-12-16 10:47] LABS: Partial Thromboplastin Time 79.1 sec (23.6-33.0)
[2021-12-16 15:00] VITALS: BP 131/71
[2021-12-16] MEDS ORDERED: PRED10TA PO (15:38)
[2021-12-16] MEDS: PIPERACILLIN-TAZOB 3.375GM 100 ML IV SCH ×2 (15:51→22:30)
[2021-12-16 17:00] VITALS: BP 115/36
[2021-12-16 17:19] LABS: Basophils # (auto) 0.1 10 ^3/uL (0-0.2); Basophils % (auto) 0.5 % (0.0-2.0); Eosinophils # (auto) 0.2 10 ^3/uL (0-0.8); Eosinophils % (auto) 1.4 % (0.0-7.0); Hematocrit 38.1 % (36.0-46.0); Hemoglobin 12.4 g/dL (12.2-16.2); Mean Corpuscular Hemoglobin 27.5 pg (28.0-32.0); Mean Corpuscular Hgb Conc. 32.6 g/dL (32.0-36.0); Mean Corpuscular Volume 84.1 fL (80.0-100.0); Monocytes # (auto) 0.6 10 ^3/uL (0-1.3); Monocytes % (auto) 4.9 % (0.0-12.0); Neutrophils # (auto) 9.7 10 ^3/uL (1.6-8.6); Neutrophils % (auto) 84.2 % (37.0-80.0); Red Blood Cells 4.52 10^6/uL (4.0-5.20); Red Cell Distribution Width 15.3 % (11.8-14.3); White Blood Cell 11.6 10^3/uL (4.4-10.8)
[2021-12-16 17:33] LABS: INR 0.95 (0.9-1.15); Partial Thromboplastin Time 21.2 sec (23.6-33.0)
[2021-12-16 17:36] LABS: Albumin 2.6 g/dL (3.4-5.0); Calcium 9.5 mg/dL (8.5-10.1); Magnesium 2.9 mg/dL (1.6-2.6); Potassium 3.3 mmol/L (3.5-5.1)
[2021-12-16 17:39] LABS: BUN/Creatinine Ratio 23.9; Bilirubin, Total 0.3 mg/dL (0.2-1.0); Phosphorus 2.2 mg/dL (2.5-4.90); Total Protein 5.9 g/dL (6.4-8.2)
[2021-12-16] MEDS ORDERED: HEPARIN SODIUM (PORCINE) 5000 UNITS/ML 1ML VIAL IV ONE ×2 (18:15)
[2021-12-16] MEDS ORDERED: HEPARIN DRIP/D5W 100UNITS/ML 250 ML IV SCH (18:15)
[2021-12-16] MEDS ORDERED: POTASSIUM PHOSPHATE 26.4 MEQ in SODIUM CHL 0.9% 100 ML IV ONE (18:30)
[2021-12-16] MEDS: METOPROLOL TARTRATE 25 MG TAB PO SCH (21:18)
[2021-12-16] MEDS: busPIRone HCL 10 MG TAB PO SCH (21:18)
[2021-12-16] MEDS: ISOSORBIDE MONONITRATE ER 60 MG TAB PO SCH (21:18)
[2021-12-16 22:00] VITALS: BP_SYST 90; BP_SYST 99; BP_DIAS 32; BP_DIAS 42
[2021-12-17 01:23] LABS: INR 0.97 (0.9-1.15); Partial Thromboplastin Time 29.2 sec (23.6-33.0)
[2021-12-17] MEDS ORDERED: HEPARIN SODIUM (PORCINE) 5000 UNITS/ML 1ML VIAL IV ONE (02:00)
[2021-12-17] MEDS ORDERED: HEPARIN DRIP/D5W 100UNITS/ML 250 ML IV SCH (02:15)
[2021-12-17] MEDS: ALBUTEROL SULF 2.5 MG/0.5ML(0.5%) NEB SOLN NEB PRN ×2 (04:23→07:40)
[2021-12-17] MEDS: IPRATROPIUM BROM 0.5 MG/2.5ML INH SOL NEB PRN ×2 (04:23→07:40)
[2021-12-17 05:00] VITALS: BP 127/39
[2021-12-17] MEDS: PIPERACILLIN-TAZOB 3.375GM 100 ML IV SCH ×3 (06:20→23:56)
[2021-12-17 07:14] LABS: Basophils # (auto) 0 10 ^3/uL (0-0.2); Basophils % (auto) 0.4 % (0.0-2.0); Eosinophils # (auto) 0.2 10 ^3/uL (0-0.8); Eosinophils % (auto) 2.6 % (0.0-7.0); Hematocrit 36.8 % (36.0-46.0); Hemoglobin 12.4 g/dL (12.2-16.2); Lymphocytes # (auto) 0.9 10 ^3/uL (0.4-5.4); Lymphocytes % (auto) 11.3 % (10.0-50.0); Mean Corpuscular Hemoglobin 28.2 pg (28.0-32.0); Mean Corpuscular Hgb Conc. 33.6 g/dL (32.0-36.0); Monocytes # (auto) 0.4 10 ^3/uL (0-1.3); Monocytes % (auto) 5.3 % (0.0-12.0); Neutrophils # (auto) 6.5 10 ^3/uL (1.6-8.6); Neutrophils % (auto) 80.4 % (37.0-80.0); Red Blood Cells 4.38 10^6/uL (4.0-5.20); Red Cell Distribution Width 15.1 % (11.8-14.3); White Blood Cell 8.1 10^3/uL (4.4-10.8)
[2021-12-17 07:25] LABS: Albumin 2.5 g/dL (3.4-5.0); Calcium 8.9 mg/dL (8.5-10.1); Magnesium 2.3 mg/dL (1.6-2.6); Potassium 3.5 mmol/L (3.5-5.1)
[2021-12-17 07:29] LABS: BUN/Creatinine Ratio 21.5; Bilirubin, Total 0.5 mg/dL (0.2-1.0); Phosphorus 2.5 mg/dL (2.5-4.90); Total Protein 5.7 g/dL (6.4-8.2)
[2021-12-17 07:46] LABS: INR 1.01 (0.9-1.15)
[2021-12-17 08:00] VITALS: BP 96/40
[2021-12-17 08:33] LABS: Partial Thromboplastin Time 94.8 sec (23.6-33.0)
[2021-12-17 08:56] VITALS: BP 96/40
[2021-12-17] MEDS: ISOSORBIDE MONONITRATE ER 60 MG TAB PO SCH ×2 (09:38→22:00)
[2021-12-17] MEDS: METOPROLOL TARTRATE 25 MG TAB PO SCH ×2 (09:39→13:50)
[2021-12-17] MEDS: MONTELUKAST SODIUM 10 MG TAB PO SCH (09:41)
[2021-12-17] MEDS: busPIRone HCL 10 MG TAB PO SCH ×2 (09:42→23:56)
[2021-12-17] MEDS: FUROSEMIDE 20 MG TAB PO SCH (09:42)
[2021-12-17 13:00] VITALS: BP 116/53
[2021-12-17] MEDS ORDERED: AMIODARONE 450mg/250ml AE 250 ML IV SCH (15:45)
[2021-12-17] MEDS ORDERED: METOPROLOL TARTRATE 50 MG TAB PO ONE (16:15)
[2021-12-17 17:00] VITALS: BP 98/39
[2021-12-17] MEDS: ACETAMINOPHEN/CODEINE#3 (300/30mg) TAB PO PRN (17:29)
[2021-12-17] MEDS: APIXABAN 2.5 MG TAB PO SCH (17:30)
[2021-12-17 22:00] VITALS: BP 109/46
[2021-12-17] MEDS ORDERED: METOPROLOL TARTRATE 50 MG TAB PO SCH (22:00)
[2021-12-18] VITALS (8 sets, daily range): BP systolic 102–138; BP diastolic 29–65
[2021-12-18] MEDS: ALBUTEROL SULF 2.5 MG/0.5ML(0.5%) NEB SOLN NEB PRN ×2 (02:15→20:43)
[2021-12-18] MEDS: IPRATROPIUM BROM 0.5 MG/2.5ML INH SOL NEB PRN ×2 (02:15→20:43)
[2021-12-18] MEDS: APIXABAN 2.5 MG TAB PO SCH ×2 (06:11→17:18)
[2021-12-18] MEDS: PIPERACILLIN-TAZOB 3.375GM 100 ML IV SCH ×3 (06:12→22:15)
[2021-12-18] MEDS: MONTELUKAST SODIUM 10 MG TAB PO SCH (09:39)
[2021-12-18] MEDS: METOPROLOL TARTRATE 25 MG TAB PO SCH ×2 (09:39→22:00)
[2021-12-18] MEDS: ISOSORBIDE MONONITRATE ER 60 MG TAB PO SCH ×2 (09:40→22:00)
[2021-12-18] MEDS: DIGOXIN 0.125 MG TAB PO SCH (09:40)
[2021-12-18] MEDS: FUROSEMIDE 20 MG TAB PO SCH (09:40)
[2021-12-18] MEDS: busPIRone HCL 10 MG TAB PO SCH ×2 (09:41→22:15)
[2021-12-18] MEDS: ACETAMINOPHEN/CODEINE#3 (300/30mg) TAB PO PRN (11:23)
[2021-12-18 13:53] LABS: Albumin 2.9 g/dL (3.4-5.0); BUN/Creatinine Ratio 12.6; Calcium 9.6 mg/dL (8.5-10.1); Potassium 3.9 mmol/L (3.5-5.1)
[2021-12-18 13:56] LABS: Bilirubin, Total 0.4 mg/dL (0.2-1.0); Total Protein 5.9 g/dL (6.4-8.2)
[2021-12-19 05:00] VITALS: BP 131/91
[2021-12-19] MEDS: PIPERACILLIN-TAZOB 3.375GM 100 ML IV SCH ×3 (06:02→23:13)
[2021-12-19] MEDS: APIXABAN 2.5 MG TAB PO SCH ×2 (06:02→10:07)
[2021-12-19 08:30] VITALS: BP 94/59
[2021-12-19] MEDS: MONTELUKAST SODIUM 10 MG TAB PO SCH (10:07)
[2021-12-19] MEDS: busPIRone HCL 10 MG TAB PO SCH ×2 (10:07→22:10)
[2021-12-19] MEDS: DIGOXIN 0.125 MG TAB PO SCH (10:11)
[2021-12-19] MEDS: ISOSORBIDE MONONITRATE ER 60 MG TAB PO SCH ×2 (10:11→22:00)
[2021-12-19] MEDS: FUROSEMIDE 20 MG TAB PO SCH (10:12)
[2021-12-19] MEDS: METOPROLOL TARTRATE 25 MG TAB PO SCH ×2 (10:12→22:00)
[2021-12-19] MEDS: ALBUTEROL SULF 2.5 MG/0.5ML(0.5%) NEB SOLN NEB PRN ×3 (12:24→22:50)
[2021-12-19] MEDS: IPRATROPIUM BROM 0.5 MG/2.5ML INH SOL NEB PRN ×2 (12:24→22:50)
[2021-12-19 12:30] VITALS: BP 110/65
[2021-12-19] MEDS: ACETYLCYSTEINE 20%(200MG/ML) SOL 4ML NEB SCH ×2 (14:06→22:50)
[2021-12-19 17:00] VITALS: BP 83/48
[2021-12-19 21:51] VITALS: BP 93/55
[2021-12-20 05:00] VITALS: BP 141/64
[2021-12-20] MEDS: APIXABAN 2.5 MG TAB PO SCH (05:19)
[2021-12-20] MEDS: PIPERACILLIN-TAZOB 3.375GM 100 ML IV SCH ×2 (05:19→14:00)
[2021-12-20 05:39] LABS: Basophils # (auto) 0 10 ^3/uL (0-0.2); Basophils % (auto) 0.4 % (0.0-2.0); Eosinophils # (auto) 0.2 10 ^3/uL (0-0.8); Eosinophils % (auto) 2.3 % (0.0-7.0); Hematocrit 38.3 % (36.0-46.0); Hemoglobin 12.9 g/dL (12.2-16.2); Lymphocytes # (auto) 1.1 10 ^3/uL (0.4-5.4); Lymphocytes % (auto) 10.2 % (10.0-50.0); Mean Corpuscular Hemoglobin 28.1 pg (28.0-32.0); Mean Corpuscular Hgb Conc. 33.6 g/dL (32.0-36.0); Mean Corpuscular Volume 83.7 fL (80.0-100.0); Monocytes # (auto) 0.5 10 ^3/uL (0-1.3); Monocytes % (auto) 4.9 % (0.0-12.0); Neutrophils # (auto) 8.6 10 ^3/uL (1.6-8.6); Neutrophils % (auto) 82.2 % (37.0-80.0); Red Blood Cells 4.58 10^6/uL (4.0-5.20); Red Cell Distribution Width 14.8 % (11.8-14.3); White Blood Cell 10.5 10^3/uL (4.4-10.8)
[2021-12-20] MEDS: IPRATROPIUM BROM 0.5 MG/2.5ML INH SOL NEB PRN (05:43)
[2021-12-20] MEDS: ALBUTEROL SULF 2.5 MG/0.5ML(0.5%) NEB SOLN NEB PRN ×2 (05:43→14:22)
[2021-12-20] MEDS: ACETYLCYSTEINE 20%(200MG/ML) SOL 4ML NEB SCH ×2 (05:43→14:23)
[2021-12-20 05:57] LABS: Potassium 3.3 mmol/L (3.5-5.1)
[2021-12-20 06:05] LABS: Albumin 2.7 g/dL (3.4-5.0); BUN/Creatinine Ratio 14.5; Calcium 9.6 mg/dL (8.5-10.1); Magnesium 2.6 mg/dL (1.6-2.6)
[2021-12-20 06:21] LABS: Bilirubin, Total 0.6 mg/dL (0.2-1.0); Total Protein 5.8 g/dL (6.4-8.2)
[2021-12-20] MEDS ORDERED: dilTIAZem 25 MG/5 ML VIAL IV PRN (09:30)
[2021-12-20] MEDS ORDERED: POTASSIUM CHL 20 Meq TABLET PO ONE (09:30)
[2021-12-20 09:38] VITALS: BP 117/99
[2021-12-20] MEDS ORDERED: ONDANSETRON HCL 4 MG/2 ML VIAL IV PRN (10:00)
[2021-12-20] MEDS ORDERED: DRONEDARONE HCL 400 MG TAB PO SCH (10:00)
[2021-12-20] MEDS: busPIRone HCL 10 MG TAB PO SCH (10:58)
[2021-12-20] MEDS: ISOSORBIDE MONONITRATE ER 60 MG TAB PO SCH (10:59)
[2021-12-20] MEDS: DIGOXIN 0.125 MG TAB PO SCH (10:59)
[2021-12-20] MEDS: METOPROLOL TARTRATE 25 MG TAB PO SCH ×3 (11:00→15:07)
[2021-12-20] MEDS: MONTELUKAST SODIUM 10 MG TAB PO SCH (11:00)
[2021-12-20] MEDS: FUROSEMIDE 20 MG TAB PO SCH (11:00)
[2021-12-20] MEDS ORDERED: DRON400T PO ×2 (11:36→12:06)
[2021-12-20] MEDS ORDERED: DOXY-346 PO ×2 (11:36→12:06)
[2021-12-20] MEDS ORDERED: DIGO1TAB48 PO ×2 (11:36→12:06)
[2021-12-20] MEDS ORDERED: APIX2.5T PO (11:36)
[2021-12-20] MEDS ORDERED: MET25T PO (11:36)
[2021-12-20] MEDS ORDERED: dilTIAZem 25 MG/5 ML VIAL IV ONE (12:00)
[2021-12-20] MEDS ORDERED: DIGO0.12 PO (12:06)
[2021-12-20] MEDS ORDERED: METO25TA5 PO (12:06)
== END 2021-12-20 15:05 | disposition home health service (06) | DRG 871 ==
LOC: EDBD 09:38 → ER 09:38 → TELE 21:18 → TELE-CENTR 12-16 15:06
PROVIDERS: ADMIT Internal Medicine; ATTEND Internal Medicine
PROC: 05HA33Z Insertion of Infusion Device into Left Brachial Vein, Percutaneous Approach (ICD-10-PCS; principal; 2021-12-14)
PROC: B54NZZA Ultrasonography of Left Upper Extremity Veins, Guidance (ICD-10-PCS; 2021-12-14)
DX: A41.9 Sepsis, unspecified organism (principal); J18.9 Pneumonia, unspecified organism; J96.01 Acute respiratory failure with hypoxia; J98.11 Atelectasis; N17.9 Acute kidney failure, unspecified; N39.0 Urinary tract infection, site not specified; I48.0 Paroxysmal atrial fibrillation; K21.9 Gastro-esophageal reflux disease without esophagitis; F32.A Depression, unspecified; K44.9 Diaphragmatic hernia without obstruction or gangrene; E78.5 Hyperlipidemia, unspecified; I11.0 Hypertensive heart disease with heart failure; I50.9 Heart failure, unspecified; J43.9 Emphysema, unspecified; Z20.822 Contact with and (suspected) exposure to COVID-19; R91.1 Solitary pulmonary nodule; Z63.4 Disappearance and death of family member; Z79.01 Long term (current) use of anticoagulants; Z79.51 Long term (current) use of inhaled steroids; Z79.899 Other long term (current) drug therapy; Z82.49 Family history of ischemic heart disease and other diseases of the circulatory system; Z82.5 Family history of asthma and other chronic lower respiratory diseases; Z83.3 Family history of diabetes mellitus; Z85.3 Personal history of malignant neoplasm of breast; Z86.711 Personal history of pulmonary embolism; Z86.718 Personal history of other venous thrombosis and embolism; Z86.73 Personal history of transient ischemic attack (TIA), and cerebral infarction without residual deficits; Z90.13 Acquired absence of bilateral breasts and nipples; Z90.49 Acquired absence of other specified parts of digestive tract; Z90.710 Acquired absence of both cervix and uterus
CPT/HCPCS: 36415; 71045; 71250; 80053; 80061; 81001; 83036; 83735; 83880; 84100; 84443; 85007; 85025; 85027; 85610; 85730; 87040; 87086; 93005; 93306; 94640; 94667; 94668; 96361; 96365; 96375; 97110; 97116; 97163; 97530; G0378; J0696; J2405; J2543

== ENCOUNTER 2022-08-03 12:12 | Inpatient (IN) | payer MEDICARE, MEDICAID ==
[~2022-08-03] VITALS: Ht 152.4 cm; Wt 76.2 kg
[~2022-08-03 12:12] MED LIST changes: -APIX5TAB PO; +DIGO0.12 PO; +DIGO1TAB48 PO; +DOXY-346 PO; +DRON400T PO; -FLUT250M2 INH; +METO25TA5 PO; +PRED10TA PO; -PRED1PAK8 PO
[2022-08-03] MEDS ORDERED: METOPROLOL TARTRATE 1MG/1ML-5ML VIAL IV ONE (12:30)
[2022-08-03 13:02] LABS: Basophils # (auto) 0.3 10 ^3/uL (0-0.2); Basophils % (auto) 2.2 % (0.0-2.0); Eosinophils # (auto) 0 10 ^3/uL (0-0.8); Eosinophils % (auto) 0.2 % (0.0-7.0); Hemoglobin 15.6 g/dL (12.2-16.2); Lymphocytes # (auto) 0.3 10 ^3/uL (0.4-5.4); Lymphocytes % (auto) 2.3 % (10.0-50.0); Mean Corpuscular Hemoglobin 29.2 pg (28.0-32.0); Mean Corpuscular Hgb Conc. 32.4 g/dL (32.0-36.0); Monocytes # (auto) 0.6 10 ^3/uL (0-1.3); Monocytes % (auto) 4.2 % (0.0-12.0); Neutrophils # (auto) 12.3 10 ^3/uL (1.6-8.6); Neutrophils % (auto) 91.1 % (37.0-80.0); Red Blood Cells 5.34 10^6/uL (4.0-5.20); Red Cell Distribution Width 15.4 % (11.8-14.3); White Blood Cell 13.5 10^3/uL (4.4-10.8)
[2022-08-03 13:19] LABS: Alanine Aminotransferase 10 U/L (13-56); Albumin 3.1 g/dL (3.4-5.0); Anion Gap 9 (5-15); Aspartate Aminotransferase 20 U/L (15-37); BUN/Creatinine Ratio 26.6; Blood Urea Nitrogen 25 mg/dL (7-18); Calcium 10.8 mg/dL (8.5-10.1); Carbon Dioxide 28 mmol/L (21-32); Chloride 99 mmol/L (98-107); GFR African American 72 mL/min; GFR Non-African American 60 mL/min; Glucose 103 mg/dL (74-106); Magnesium 1.9 mg/dL (1.6-2.6); Potassium 4.3 mmol/L (3.5-5.1); Sodium 136 mmol/L (136-145)
[2022-08-03 13:21] LABS: Alkaline Phosphatase 138 U/L (45-117); Bilirubin, Total 0.7 mg/dL (0.2-1.0); Creatine Kinase IFCC 50 U/L (26-192); Total Protein 6.5 g/dL (6.4-8.2)
[2022-08-03] MEDS ORDERED: cefTRIAXone 1GM/50ML D5W 50 ML IV ONE (14:30)
[2022-08-03] MEDS ORDERED: MORPHINE SULFATE INJ 2 MG/ml SYRG IV PRN (16:00)
[2022-08-03] MEDS ORDERED: ONDANSETRON HCL 4 MG/2 ML VIAL IV PRN (16:00)
[2022-08-03] MEDS ORDERED: HYDROcodone-ACET 5/325MG TAB PO PRN (16:00)
[2022-08-03] MEDS ORDERED: NITROGLYCERIN 0.4 MG SL TAB SL PRN (16:00)
[2022-08-03] MEDS ORDERED: ACETAMINOPHEN 325 MG TAB PO PRN (16:00)
[2022-08-03] MEDS ORDERED: dilTIAZem 25 MG/5 ML VIAL IV ONE (20:15)
[2022-08-03] MEDS: DRONEDARONE HCL 400 MG TAB PO SCH (20:28)
[2022-08-03] MEDS: ISOSORBIDE MONONITRATE 30 MG PO SCH (21:49)
[2022-08-03] MEDS: busPIRone HCL 10 MG TAB PO SCH (21:50)
[2022-08-03] MEDS ORDERED: SODIUM CHLORIDE 0.9% 250 ML IV ONE (22:00)
[2022-08-03] MEDS ORDERED: POTASSIUM CHL 20 Meq TABLET PO ONE (22:00)
[2022-08-03] MEDS ORDERED: APIXABAN 2.5 MG TAB PO ONE (22:15)
[2022-08-03 22:23] LABS: Urine Bacteria NONE SEEN /hpf (None Seen); Urine Blood Negative /uL (Negative); Urine Hyaline Cast FEW /lpf (0 - 2); Urine Specific Gravity 1.012 (1.001-1.035); Urine WBC <1 /hpf (0 - 5)
[2022-08-03] MEDS: dilTIAZem 125mg/125ml BAG KIT 125 ML IV SCH (23:27)
[2022-08-03] MEDS: SODIUM CHLORIDE 0.9% 1,000 ML IV SCH (23:28)
[2022-08-03] MEDS: MAGNESIUM SULFATE 1GM/100ML 100 ML IV SCH (23:28)
[2022-08-04] MEDS: MAGNESIUM SULFATE 1GM/100ML 100 ML IV SCH ×3 (00:55→14:53)
[2022-08-04 07:25] LABS: Basophils # (auto) 0 10 ^3/uL (0-0.2); Basophils % (auto) 0.2 % (0.0-2.0); Eosinophils # (auto) 0.1 10 ^3/uL (0-0.8); Eosinophils % (auto) 0.9 % (0.0-7.0); Hematocrit 43.7 % (36.0-46.0); Hemoglobin 13.8 g/dL (12.2-16.2); Lymphocytes # (auto) 0.7 10 ^3/uL (0.4-5.4); Lymphocytes % (auto) 8.2 % (10.0-50.0); Mean Corpuscular Hemoglobin 28.3 pg (28.0-32.0); Mean Corpuscular Hgb Conc. 31.6 g/dL (32.0-36.0); Mean Corpuscular Volume 89.4 fL (80.0-100.0); Monocytes # (auto) 0.6 10 ^3/uL (0-1.3); Neutrophils # (auto) 6.6 10 ^3/uL (1.6-8.6); Neutrophils % (auto) 83.7 % (37.0-80.0); Nucleated Red Blood Cells % 0.2 %; Red Blood Cells 4.89 10^6/uL (4.0-5.20); Red Cell Distribution Width 15.1 % (11.8-14.3); White Blood Cell 7.9 10^3/uL (4.4-10.8)
[2022-08-04 07:46] LABS: Albumin 2.6 g/dL (3.4-5.0); Anion Gap 10 (5-15); Blood Urea Nitrogen 25 mg/dL (7-18); Calcium 10.1 mg/dL (8.5-10.1); Carbon Dioxide 29 mmol/L (21-32); Chloride 99 mmol/L (98-107); Glucose 75 mg/dL (74-106); Potassium 4.1 mmol/L (3.5-5.1); Sodium 138 mmol/L (136-145)
[2022-08-04 07:49] LABS: Alanine Aminotransferase 10 U/L (13-56); Aspartate Aminotransferase 19 U/L (15-37); BUN/Creatinine Ratio 28.4; GFR African American 78 mL/min; GFR Non-African American 64 mL/min
[2022-08-04] MEDS ORDERED: ALBUTEROL MEDNEB 2.5 mg/3ml NEB ONE ×6 (07:49→21:51)
[2022-08-04 07:51] LABS: Alkaline Phosphatase 115 U/L (45-117); Bilirubin, Total 0.8 mg/dL (0.2-1.0); Total Protein 6.3 g/dL (6.4-8.2)
[2022-08-04] MEDS: SODIUM CHLORIDE 0.9% 1,000 ML IV SCH ×2 (08:30→18:30)
[2022-08-04 09:42] VITALS: BP 117/85
[2022-08-04] MEDS ORDERED: APIXABAN 2.5 MG TAB PO SCH (10:00)
[2022-08-04] MEDS: PANTOPRAZOLE 40 MG/10 ML VIAL INJ IV SCH (10:05)
[2022-08-04] MEDS: DRONEDARONE HCL 400 MG TAB PO SCH ×2 (10:06→22:39)
[2022-08-04] MEDS: cefTRIAXone 1GM/50ML D5W 50 ML IV SCH (10:06)
[2022-08-04] MEDS: MONTELUKAST SODIUM 10 MG TAB PO SCH (10:06)
[2022-08-04] MEDS: busPIRone HCL 10 MG TAB PO SCH ×2 (10:07→22:39)
[2022-08-04] MEDS: ENOXAPARIN SOD 60 MG/0.6 ML SYRINGE SC SCH (10:22)
[2022-08-04] MEDS: ISOSORBIDE MONONITRATE 30 MG PO SCH ×2 (10:38→22:00)
[2022-08-04] MEDS: ALBUTEROL SULF 2.5 MG/0.5ML(0.5%) NEB SOLN NEB PRN ×2 (11:25→14:15)
[2022-08-04] MEDS ORDERED: IPRATROPIUM BROM 0.5 MG/2.5ML INH SOL ONE (11:39)
[2022-08-04] MEDS ORDERED: MAGNESIUM SULFATE 1GM/100ML 200 ML IV ONE (11:41)
[2022-08-04] MEDS ORDERED: IPRATROPIUM BROM 0.5 MG/2.5ML INH SOL NEB ONE (11:45)
[2022-08-04] MEDS ORDERED: ALBUTEROL SULF 2.5 MG/0.5ML(0.5%) NEB SOLN NEB ONE (11:45)
[2022-08-04] MEDS ORDERED: DexAMETHasone SOD PHOS 10MG/1ML VIAL INJ IV ONE (12:00)
[2022-08-04] MEDS: LORazepam 0.5 MG TAB PO PRN (16:11)
[2022-08-04] MEDS: ALBUTEROL SULF 2.5 MG/0.5ML(0.5%) NEB SOLN NEB SCH ×2 (18:23→21:57)
[2022-08-04] MEDS: dilTIAZem 125mg/125ml BAG KIT 125 ML IV SCH (22:00)
[2022-08-05] VITALS (22 sets, daily range): BP systolic 72–152; BP diastolic 44–76
[2022-08-05] MEDS ORDERED: ALBUTEROL MEDNEB 2.5 mg/3ml NEB ONE ×5 (01:41→23:10)
[2022-08-05] MEDS: ALBUTEROL SULF 2.5 MG/0.5ML(0.5%) NEB SOLN NEB SCH ×7 (01:50→23:46)
[2022-08-05] MEDS: SODIUM CHLORIDE 0.9% 1,000 ML IV SCH ×2 (04:30→14:30)
[2022-08-05] MEDS: ALBUTEROL MEDNEB 2.5 mg/3ml NEB ONE (05:53)
[2022-08-05] MEDS: ISOSORBIDE MONONITRATE 30 MG PO SCH ×2 (10:00→21:48)
[2022-08-05] MEDS: PANTOPRAZOLE 40 MG/10 ML VIAL INJ IV SCH (10:32)
[2022-08-05] MEDS: cefTRIAXone 1GM/50ML D5W 50 ML IV SCH (10:32)
[2022-08-05] MEDS: ENOXAPARIN SOD 60 MG/0.6 ML SYRINGE SC SCH (10:33)
[2022-08-05] MEDS: busPIRone HCL 10 MG TAB PO SCH (10:33)
[2022-08-05] MEDS: MONTELUKAST SODIUM 10 MG TAB PO SCH (10:33)
[2022-08-05] MEDS: DRONEDARONE HCL 400 MG TAB PO SCH ×2 (11:02→21:47)
[2022-08-05] MEDS: dilTIAZem 125mg/125ml BAG KIT 125 ML IV SCH ×3 (12:29→22:54)
[2022-08-05] MEDS: LORazepam 0.5 MG TAB PO PRN (13:05)
[2022-08-05 21:43] LABS: Albumin 2.6 g/dL (3.4-5.0); BUN/Creatinine Ratio 28.9; Calcium 10.2 mg/dL (8.5-10.1); Magnesium 2.5 mg/dL (1.6-2.6); Potassium 3.9 mmol/L (3.5-5.1)
[2022-08-05 21:46] LABS: Bilirubin, Total 0.4 mg/dL (0.2-1.0); Total Protein 6.3 g/dL (6.4-8.2)
[2022-08-05] MEDS: MIRTAZAPINE 30 MG TAB PO SCH (21:47)
[2022-08-06] VITALS (61 sets, daily range): BP systolic 79–157; BP diastolic 43–99
[2022-08-06] MEDS: dilTIAZem 125mg/125ml BAG KIT 125 ML IV SCH (01:32)
[2022-08-06] MEDS ORDERED: ALBUTEROL MEDNEB 2.5 mg/3ml NEB ONE ×5 (02:12→16:43)
[2022-08-06] MEDS: ALBUTEROL SULF 2.5 MG/0.5ML(0.5%) NEB SOLN NEB SCH ×5 (02:29→18:05)
[2022-08-06 04:38] LABS: Basophils # (auto) 0 10 ^3/uL (0-0.2); Basophils % (auto) 0.3 % (0.0-2.0); Eosinophils # (auto) 0 10 ^3/uL (0-0.8); Hematocrit 40.4 % (36.0-46.0); Hemoglobin 12.9 g/dL (12.2-16.2); Lymphocytes # (auto) 0.4 10 ^3/uL (0.4-5.4); Lymphocytes % (auto) 4.4 % (10.0-50.0); Mean Corpuscular Hemoglobin 28.5 pg (28.0-32.0); Mean Corpuscular Hgb Conc. 31.8 g/dL (32.0-36.0); Mean Corpuscular Volume 89.7 fL (80.0-100.0); Monocytes # (auto) 0.4 10 ^3/uL (0-1.3); Monocytes % (auto) 4.7 % (0.0-12.0); Neutrophils # (auto) 8.1 10 ^3/uL (1.6-8.6); Neutrophils % (auto) 90.6 % (37.0-80.0); Nucleated Red Blood Cells % 0.1 %; Red Blood Cells 4.51 10^6/uL (4.0-5.20); Red Cell Distribution Width 15.3 % (11.8-14.3)
[2022-08-06 04:54] LABS: Albumin 2.7 g/dL (3.4-5.0); Calcium 10.1 mg/dL (8.5-10.1); Potassium 4.4 mmol/L (3.5-5.1)
[2022-08-06 05:04] LABS: Bilirubin, Total 0.4 mg/dL (0.2-1.0); Total Protein 6.3 g/dL (6.4-8.2)
[2022-08-06] MEDS ORDERED: VANCOMYCIN PER PHARMACY 0 MG IV SCH (10:00)
[2022-08-06] MEDS: ISOSORBIDE MONONITRATE 30 MG PO SCH ×2 (10:00→22:00)
[2022-08-06] MEDS: PANTOPRAZOLE 40 MG/10 ML VIAL INJ IV SCH (10:44)
[2022-08-06] MEDS: dilTIAZem HCL 60 MG TAB PO SCH ×3 (10:48→21:54)
[2022-08-06] MEDS: MONTELUKAST SODIUM 10 MG TAB PO SCH (10:48)
[2022-08-06] MEDS: ENOXAPARIN SOD 60 MG/0.6 ML SYRINGE SC SCH ×2 (10:49→21:52)
[2022-08-06] MEDS ORDERED: VANCOMYCIN 750mg/250ml 250 ML IV SCH (11:00)
[2022-08-06] MEDS: DRONEDARONE HCL 400 MG TAB PO SCH ×2 (11:12→21:52)
[2022-08-06] MEDS ORDERED: dilTIAZem HCL 60 MG TAB PO SCH (12:00)
[2022-08-06] MEDS: LORazepam 0.5 MG TAB PO PRN (16:01)
[2022-08-06] MEDS ORDERED: methylPREDNISolone SOD SUCC 125 MG/2 ML VL ONE (16:45)
[2022-08-06] MEDS ORDERED: methylPREDNISolone SOD SUCC 40 MG/ML VL IV ONE (16:45)
[2022-08-06] MEDS ORDERED: ALBUTEROL MEDNEB 2.5 mg/3ml NEB NEB PRN (17:00)
[2022-08-06] MEDS: IPRATROPIUM BROM 0.5 MG/2.5ML INH SOL NEB SCH ×2 (18:05→22:01)
[2022-08-06] MEDS: MIRTAZAPINE 30 MG TAB PO SCH (21:55)
[2022-08-06] MEDS: ALBUTEROL MEDNEB 2.5 mg/3ml NEB NEB SCH (22:01)
[2022-08-07] VITALS (35 sets, daily range): BP systolic 84–132; BP diastolic 41–75
[2022-08-07] MEDS: ALBUTEROL MEDNEB 2.5 mg/3ml NEB NEB SCH ×6 (02:14→22:51)
[2022-08-07] MEDS: IPRATROPIUM BROM 0.5 MG/2.5ML INH SOL NEB SCH ×6 (02:14→22:50)
[2022-08-07 04:03] LABS: Basophils # (auto) 0 10 ^3/uL (0-0.2); Eosinophils # (auto) 0 10 ^3/uL (0-0.8); Hematocrit 36.9 % (36.0-46.0); Hemoglobin 11.7 g/dL (12.2-16.2); Lymphocytes # (auto) 0.2 10 ^3/uL (0.4-5.4); Lymphocytes % (auto) 3.3 % (10.0-50.0); Mean Corpuscular Hemoglobin 28.5 pg (28.0-32.0); Mean Corpuscular Hgb Conc. 31.8 g/dL (32.0-36.0); Mean Corpuscular Volume 89.7 fL (80.0-100.0); Monocytes # (auto) 0 10 ^3/uL (0-1.3); Neutrophils # (auto) 4.7 10 ^3/uL (1.6-8.6); Neutrophils % (auto) 95.7 % (37.0-80.0); Nucleated Red Blood Cells % 0.1 %; Red Blood Cells 4.12 10^6/uL (4.0-5.20); Red Cell Distribution Width 15.2 % (11.8-14.3); White Blood Cell 4.9 10^3/uL (4.4-10.8)
[2022-08-07] MEDS: dilTIAZem HCL 60 MG TAB PO SCH ×4 (04:03→22:24)
[2022-08-07 04:13] LABS: Albumin 2.7 g/dL (3.4-5.0); Calcium 9.6 mg/dL (8.5-10.1); Magnesium 2.4 mg/dL (1.6-2.6); Potassium 4.6 mmol/L (3.5-5.1)
[2022-08-07 04:16] LABS: BUN/Creatinine Ratio 23.7; Bilirubin, Total 0.5 mg/dL (0.2-1.0); Phosphorus 2.9 mg/dL (2.5-4.90); Total Protein 5.7 g/dL (6.4-8.2)
[2022-08-07] MEDS: VANCOMYCIN 750mg/250ml 250 ML IV SCH (07:07)
[2022-08-07] MEDS: MONTELUKAST SODIUM 10 MG TAB PO SCH (09:32)
[2022-08-07] MEDS: DRONEDARONE HCL 400 MG TAB PO SCH ×2 (09:32→22:26)
[2022-08-07] MEDS: ISOSORBIDE MONONITRATE 30 MG PO SCH ×2 (09:33→22:25)
[2022-08-07] MEDS: PANTOPRAZOLE 40 MG/10 ML VIAL INJ IV SCH (09:33)
[2022-08-07] MEDS: ENOXAPARIN SOD 60 MG/0.6 ML SYRINGE SC SCH ×2 (09:34→22:27)
[2022-08-07] MEDS: methylPREDNISolone SOD SUCC 125 MG/2 ML VL IV SCH ×2 (09:34→22:22)
[2022-08-07] MEDS: FUROSEMIDE 40 MG/4 ML VIAL IV SCH ×2 (09:40→18:51)
[2022-08-07] MEDS: MIRTAZAPINE 30 MG TAB PO SCH (22:27)
[2022-08-07] MEDS: ACETYLCYSTEINE 10 %(100MG/ML) SOL 4ML NEB SCH (22:51)
[2022-08-08] MEDS: ALBUTEROL MEDNEB 2.5 mg/3ml NEB NEB SCH ×6 (02:48→22:23)
[2022-08-08] MEDS: IPRATROPIUM BROM 0.5 MG/2.5ML INH SOL NEB SCH ×6 (02:48→22:22)
[2022-08-08] MEDS: VANCOMYCIN 750mg/250ml 250 ML IV SCH (03:32)
[2022-08-08 05:00] VITALS: BP 114/70
[2022-08-08] MEDS: dilTIAZem HCL 60 MG TAB PO SCH ×3 (05:27→18:17)
[2022-08-08] MEDS: FUROSEMIDE 40 MG/4 ML VIAL IV SCH ×2 (05:28→18:17)
[2022-08-08] MEDS: ACETYLCYSTEINE 10 %(100MG/ML) SOL 4ML NEB SCH ×3 (05:54→22:23)
[2022-08-08 09:00] VITALS: BP 119/79
[2022-08-08] MEDS: methylPREDNISolone SOD SUCC 125 MG/2 ML VL IV SCH ×2 (10:32→21:31)
[2022-08-08] MEDS: PANTOPRAZOLE 40 MG/10 ML VIAL INJ IV SCH (10:32)
[2022-08-08] MEDS: ISOSORBIDE MONONITRATE 30 MG PO SCH (10:33)
[2022-08-08] MEDS: DRONEDARONE HCL 400 MG TAB PO SCH (10:34)
[2022-08-08] MEDS: MONTELUKAST SODIUM 10 MG TAB PO SCH (10:34)
[2022-08-08] MEDS: ENOXAPARIN SOD 60 MG/0.6 ML SYRINGE SC SCH ×2 (10:35→21:18)
[2022-08-08 13:00] VITALS: BP 120/74
[2022-08-08 16:33] VITALS: BP 105/58
[2022-08-08] MEDS: LORazepam 0.5 MG TAB PO PRN (20:10)
[2022-08-08] MEDS: MIRTAZAPINE 30 MG TAB PO SCH (21:19)
[2022-08-08 22:23] VITALS: BP 105/65
[2022-08-09] MEDS: ISOSORBIDE MONONITRATE 30 MG PO SCH ×2 (00:33→09:22)
[2022-08-09] MEDS: dilTIAZem HCL 60 MG TAB PO SCH ×5 (00:34→21:28)
[2022-08-09] MEDS: DRONEDARONE HCL 400 MG TAB PO SCH ×3 (00:34→21:27)
[2022-08-09 05:20] VITALS: BP 118/69
[2022-08-09] MEDS: FUROSEMIDE 40 MG/4 ML VIAL IV SCH ×2 (05:41→18:00)
[2022-08-09] MEDS: IPRATROPIUM BROM 0.5 MG/2.5ML INH SOL NEB SCH ×5 (06:19→23:07)
[2022-08-09] MEDS: ALBUTEROL MEDNEB 2.5 mg/3ml NEB NEB SCH ×5 (06:20→23:07)
[2022-08-09] MEDS: ACETYLCYSTEINE 10 %(100MG/ML) SOL 4ML NEB SCH ×3 (06:20→23:08)
[2022-08-09 09:00] VITALS: BP 104/65
[2022-08-09] MEDS: methylPREDNISolone SOD SUCC 125 MG/2 ML VL IV SCH ×2 (09:19→21:27)
[2022-08-09] MEDS: PANTOPRAZOLE 40 MG/10 ML VIAL INJ IV SCH (09:19)
[2022-08-09] MEDS: MONTELUKAST SODIUM 10 MG TAB PO SCH (09:20)
[2022-08-09] MEDS: ENOXAPARIN SOD 60 MG/0.6 ML SYRINGE SC SCH ×2 (09:39→21:29)
[2022-08-09 13:00] VITALS: BP 105/59
[2022-08-09 16:55] VITALS: BP 103/60
[2022-08-09] MEDS: LORazepam 0.5 MG TAB PO PRN (18:40)
[2022-08-09] MEDS: MIRTAZAPINE 30 MG TAB PO SCH (21:29)
[2022-08-09 22:00] VITALS: BP 105/58
[2022-08-10] MEDS: IPRATROPIUM BROM 0.5 MG/2.5ML INH SOL NEB SCH ×6 (01:53→21:42)
[2022-08-10] MEDS: ALBUTEROL MEDNEB 2.5 mg/3ml NEB NEB SCH ×6 (01:53→21:42)
[2022-08-10] MEDS: dilTIAZem HCL 60 MG TAB PO SCH ×4 (04:10→22:48)
[2022-08-10 05:00] VITALS: BP 108/65
[2022-08-10] MEDS: FUROSEMIDE 40 MG/4 ML VIAL IV SCH ×2 (05:51→17:45)
[2022-08-10 06:00] LABS: Hemoglobin 12.4 g/dL (12.2-16.2); Mean Corpuscular Hemoglobin 28.8 pg (28.0-32.0); Mean Corpuscular Hgb Conc. 31.9 g/dL (32.0-36.0); Mean Corpuscular Volume 90.1 fL (80.0-100.0); Red Blood Cells 4.33 10^6/uL (4.0-5.20); Red Cell Distribution Width 15.6 % (11.8-14.3); White Blood Cell 8.1 10^3/uL (4.4-10.8)
[2022-08-10 06:06] LABS: Albumin 2.8 g/dL (3.4-5.0); Calcium 9.4 mg/dL (8.5-10.1); Potassium 4.3 mmol/L (3.5-5.1)
[2022-08-10 06:10] LABS: Bilirubin, Total 0.4 mg/dL (0.2-1.0); Total Protein 5.3 g/dL (6.4-8.2)
[2022-08-10 06:20] LABS: Basophils % (manual) 0 (0.0-2.0); Blast Cells 0; Eosinophils % (manual) 0 (0-7); Metamyelocytes % 0; Myelocytes % 0; Promyelocytes % 0; Reactive Lymphocytes 0
[2022-08-10] MEDS: ACETYLCYSTEINE 10 %(100MG/ML) SOL 4ML NEB SCH ×3 (06:44→21:42)
[2022-08-10] MEDS: ISOSORBIDE MONONITRATE 30 MG PO SCH (08:22)
[2022-08-10 08:27] VITALS: BP 107/63
[2022-08-10 09:00] VITALS: BP 106/65
[2022-08-10 09:04] LABS: Band Neutrophils % (manual) 20; Lymphocytes % (manual) 3 (10.0-50.0); Monocytes % (manual) 2 (0-12)
[2022-08-10] MEDS: methylPREDNISolone SOD SUCC 125 MG/2 ML VL IV SCH ×2 (09:23→22:47)
[2022-08-10] MEDS: PANTOPRAZOLE 40 MG/10 ML VIAL INJ IV SCH (09:23)
[2022-08-10] MEDS: ENOXAPARIN SOD 60 MG/0.6 ML SYRINGE SC SCH ×2 (09:23→22:49)
[2022-08-10] MEDS: MONTELUKAST SODIUM 10 MG TAB PO SCH (09:24)
[2022-08-10] MEDS: DRONEDARONE HCL 400 MG TAB PO SCH ×2 (09:25→22:49)
[2022-08-10 12:50] VITALS: BP 113/61
[2022-08-10 16:44] VITALS: BP 104/66
[2022-08-10] MEDS: LORazepam 0.5 MG TAB PO PRN (18:19)
[2022-08-10 22:00] VITALS: BP 102/55
[2022-08-10] MEDS: MIRTAZAPINE 30 MG TAB PO SCH (22:49)
[2022-08-11] VITALS (10 sets, daily range): BP systolic 97–120; BP diastolic 51–78
[2022-08-11] MEDS: ALBUTEROL MEDNEB 2.5 mg/3ml NEB NEB SCH ×7 (01:47→22:14)
[2022-08-11] MEDS: IPRATROPIUM BROM 0.5 MG/2.5ML INH SOL NEB SCH ×7 (01:47→22:14)
[2022-08-11] MEDS: dilTIAZem HCL 60 MG TAB PO SCH (04:13)
[2022-08-11 05:00] LABS: Urine Bacteria NONE SEEN /hpf (None Seen); Urine Blood Negative /uL (Negative); Urine Specific Gravity 1.018 (1.001-1.035); Urine WBC 3 /hpf (0 - 5)
[2022-08-11] MEDS: FUROSEMIDE 40 MG/4 ML VIAL IV SCH ×2 (05:35→17:00)
[2022-08-11] MEDS: ACETYLCYSTEINE 10 %(100MG/ML) SOL 4ML NEB SCH ×3 (06:55→22:14)
[2022-08-11] MEDS ORDERED: ANGIOMAX 250 MG VIAL IV ONE (08:08)
[2022-08-11] MEDS ORDERED: MIDAZOLAM HCL 2MG/2ML 2ml VIAL (1mg/ml) ONE (08:09)
[2022-08-11] MEDS ORDERED: HEPARIN SODIUM (PORCINE) 5000 UNITS/ML 1ML VIAL ONE (08:09)
[2022-08-11] MEDS ORDERED: fentaNYL CITRATE 100 MCG/2 ML VL ONE (08:09)
[2022-08-11] MEDS ORDERED: SODIUM CHL 0.9% 0 ML ONE (08:10)
[2022-08-11] MEDS ORDERED: LIDOCAINE 2%HCL (LOCAL ANESTH.) INJ 20ML MDV ONE (08:10)
[2022-08-11] MEDS ORDERED: IODIXANOL 320MG/ML 100ML BTL IV ONE (08:32)
[2022-08-11 08:37] LABS: INR 0.97 (0.9-1.15); Partial Thromboplastin Time 26.5 sec (24.6-33.4)
[2022-08-11] MEDS ORDERED: VERAPAMIL 2.5MG/ML INJ 2ML VIAL IV ONE (08:40)
[2022-08-11] MEDS: APIXABAN 2.5 MG TAB PO SCH ×2 (10:00→22:23)
[2022-08-11] MEDS: dilTIAZem 120MG ER CAP PO SCH (11:10)
[2022-08-11] MEDS: MONTELUKAST SODIUM 10 MG TAB PO SCH (11:10)
[2022-08-11] MEDS: DRONEDARONE HCL 400 MG TAB PO SCH ×2 (11:10→22:23)
[2022-08-11] MEDS: methylPREDNISolone SOD SUCC 125 MG/2 ML VL IV SCH ×2 (11:11→22:23)
[2022-08-11] MEDS: ISOSORBIDE MONONITRATE 30 MG PO SCH (11:11)
[2022-08-11] MEDS: PANTOPRAZOLE 40 MG/10 ML VIAL INJ IV SCH (11:11)
[2022-08-11] MEDS: LORazepam 0.5 MG TAB PO PRN (20:43)
[2022-08-11] MEDS: MIRTAZAPINE 30 MG TAB PO SCH (22:23)
[2022-08-12] MEDS: IPRATROPIUM BROM 0.5 MG/2.5ML INH SOL NEB SCH ×6 (02:35→22:18)
[2022-08-12] MEDS: ALBUTEROL MEDNEB 2.5 mg/3ml NEB NEB SCH ×6 (02:35→22:18)
[2022-08-12 04:43] VITALS: BP 129/69
[2022-08-12] MEDS: FUROSEMIDE 40 MG/4 ML VIAL IV SCH ×2 (05:38→17:55)
[2022-08-12] MEDS: ACETYLCYSTEINE 10 %(100MG/ML) SOL 4ML NEB SCH ×3 (06:24→22:19)
[2022-08-12] MEDS: ISOSORBIDE MONONITRATE 30 MG PO SCH (08:00)
[2022-08-12 09:00] VITALS: BP 113/59
[2022-08-12] MEDS: DRONEDARONE HCL 400 MG TAB PO SCH ×2 (09:08→21:56)
[2022-08-12] MEDS: PANTOPRAZOLE 40 MG/10 ML VIAL INJ IV SCH (09:08)
[2022-08-12] MEDS: methylPREDNISolone SOD SUCC 125 MG/2 ML VL IV SCH ×2 (09:08→21:56)
[2022-08-12] MEDS: MONTELUKAST SODIUM 10 MG TAB PO SCH (09:09)
[2022-08-12] MEDS: APIXABAN 2.5 MG TAB PO SCH ×2 (09:09→21:56)
[2022-08-12] MEDS: dilTIAZem 120MG ER CAP PO SCH (09:09)
[2022-08-12 13:00] VITALS: BP 117/61
[2022-08-12 15:28] LABS: Basophils # (auto) 0 10 ^3/uL (0-0.2); Basophils % (auto) 0.2 % (0.0-2.0); Eosinophils # (auto) 0 10 ^3/uL (0-0.8); Hematocrit 40.2 % (36.0-46.0); Hemoglobin 12.5 g/dL (12.2-16.2); Lymphocytes # (auto) 0.2 10 ^3/uL (0.4-5.4); Lymphocytes % (auto) 0.9 % (10.0-50.0); Mean Corpuscular Hemoglobin 28.4 pg (28.0-32.0); Mean Corpuscular Volume 91.6 fL (80.0-100.0); Monocytes # (auto) 0.4 10 ^3/uL (0-1.3); Monocytes % (auto) 2.1 % (0.0-12.0); Neutrophils # (auto) 20.2 10 ^3/uL (1.6-8.6); Neutrophils % (auto) 96.8 % (37.0-80.0); Red Blood Cells 4.39 10^6/uL (4.0-5.20); Red Cell Distribution Width 15.9 % (11.8-14.3); White Blood Cell 20.9 10^3/uL (4.4-10.8)
[2022-08-12 15:36] LABS: Albumin 2.7 g/dL (3.4-5.0); Potassium 3.9 mmol/L (3.5-5.1)
[2022-08-12 15:38] LABS: BUN/Creatinine Ratio 34.3; Bilirubin, Total 0.3 mg/dL (0.2-1.0); Total Protein 5.6 g/dL (6.4-8.2)
[2022-08-12 17:29] VITALS: BP 108/67
[2022-08-12] MEDS: MIRTAZAPINE 30 MG TAB PO SCH (21:56)
[2022-08-12] MEDS: DOXYCYCLINE 100 MG TAB/CAP PO SCH (21:56)
[2022-08-13] MEDS: IPRATROPIUM BROM 0.5 MG/2.5ML INH SOL NEB SCH ×6 (02:04→22:54)
[2022-08-13] MEDS: ALBUTEROL MEDNEB 2.5 mg/3ml NEB NEB SCH ×6 (02:04→22:54)
[2022-08-13 05:00] VITALS: BP 105/60
[2022-08-13] MEDS: FUROSEMIDE 40 MG/4 ML VIAL IV SCH ×2 (05:48→17:08)
[2022-08-13] MEDS: ACETYLCYSTEINE 10 %(100MG/ML) SOL 4ML NEB SCH ×3 (05:55→22:54)
[2022-08-13 06:23] LABS: Hematocrit 38.9 % (36.0-46.0); Hemoglobin 12.6 g/dL (12.2-16.2); Mean Corpuscular Hemoglobin 28.9 pg (28.0-32.0); Mean Corpuscular Hgb Conc. 32.5 g/dL (32.0-36.0); Mean Corpuscular Volume 88.8 fL (80.0-100.0); Red Blood Cells 4.37 10^6/uL (4.0-5.20); Red Cell Distribution Width 15.7 % (11.8-14.3); White Blood Cell 16.7 10^3/uL (4.4-10.8)
[2022-08-13 06:28] LABS: Albumin 2.7 g/dL (3.4-5.0); Band Neutrophils % (manual) 0; Basophils % (manual) 0 (0.0-2.0); Blast Cells 0; Calcium 9.1 mg/dL (8.5-10.1); Eosinophils % (manual) 0 (0-7); Metamyelocytes % 0; Myelocytes % 0; Potassium 4.1 mmol/L (3.5-5.1); Promyelocytes % 0; Reactive Lymphocytes 0
[2022-08-13 06:33] LABS: Bilirubin, Total 0.5 mg/dL (0.2-1.0); Total Protein 5.2 g/dL (6.4-8.2)
[2022-08-13] MEDS: ISOSORBIDE MONONITRATE 30 MG PO SCH (08:00)
[2022-08-13 09:04] VITALS: BP 102/65
[2022-08-13 09:05] LABS: Lymphocytes % (manual) 1 (10.0-50.0); Monocytes % (manual) 3 (0-12)
[2022-08-13] MEDS: PANTOPRAZOLE 40 MG/10 ML VIAL INJ IV SCH (09:56)
[2022-08-13] MEDS: methylPREDNISolone SOD SUCC 125 MG/2 ML VL IV SCH ×2 (09:56→21:34)
[2022-08-13] MEDS: dilTIAZem 120MG ER CAP PO SCH (09:57)
[2022-08-13] MEDS: DRONEDARONE HCL 400 MG TAB PO SCH ×2 (09:57→21:32)
[2022-08-13] MEDS: APIXABAN 2.5 MG TAB PO SCH ×2 (09:57→21:34)
[2022-08-13] MEDS: DOXYCYCLINE 100 MG TAB/CAP PO SCH ×2 (09:57→21:34)
[2022-08-13] MEDS: MONTELUKAST SODIUM 10 MG TAB PO SCH (09:57)
[2022-08-13 12:36] VITALS: BP 123/63
[2022-08-13 15:01] VITALS: BP 123/63
[2022-08-13 16:44] VITALS: BP 111/62
[2022-08-13] MEDS: MIRTAZAPINE 30 MG TAB PO SCH (21:34)
[2022-08-13 22:00] VITALS: BP 93/66
[2022-08-14] MEDS: IPRATROPIUM BROM 0.5 MG/2.5ML INH SOL NEB SCH ×3 (02:13→12:38)
[2022-08-14] MEDS: ALBUTEROL MEDNEB 2.5 mg/3ml NEB NEB SCH ×3 (02:13→12:39)
[2022-08-14 05:00] VITALS: BP 123/70
[2022-08-14] MEDS: FUROSEMIDE 40 MG/4 ML VIAL IV SCH (05:44)
[2022-08-14] MEDS: ACETYLCYSTEINE 10 %(100MG/ML) SOL 4ML NEB SCH (07:34)
[2022-08-14] MEDS ORDERED: DILT120C12 PO (07:59)
[2022-08-14] MEDS ORDERED: DOX100T PO (07:59)
[2022-08-14] MEDS ORDERED: METH4PAK PO (07:59)
[2022-08-14] MEDS ORDERED: APIX2.5T PO (07:59)
[2022-08-14] MEDS: ISOSORBIDE MONONITRATE 30 MG PO SCH (08:00)
[2022-08-14] MEDS: MONTELUKAST SODIUM 10 MG TAB PO SCH (08:33)
[2022-08-14] MEDS: DRONEDARONE HCL 400 MG TAB PO SCH (08:33)
[2022-08-14 08:35] LABS: Hematocrit 42.9 % (36.0-46.0); Hemoglobin 13.6 g/dL (12.2-16.2); Mean Corpuscular Hemoglobin 28.8 pg (28.0-32.0); Mean Corpuscular Hgb Conc. 31.8 g/dL (32.0-36.0); Mean Corpuscular Volume 90.8 fL (80.0-100.0); Red Blood Cells 4.72 10^6/uL (4.0-5.20)
[2022-08-14] MEDS: dilTIAZem 120MG ER CAP PO SCH (08:36)
[2022-08-14] MEDS: APIXABAN 2.5 MG TAB PO SCH (08:36)
[2022-08-14] MEDS: DOXYCYCLINE 100 MG TAB/CAP PO SCH (08:37)
[2022-08-14] MEDS: methylPREDNISolone SOD SUCC 125 MG/2 ML VL IV SCH (08:37)
[2022-08-14] MEDS: PANTOPRAZOLE 40 MG/10 ML VIAL INJ IV SCH (08:37)
[2022-08-14 08:42] LABS: Band Neutrophils % (manual) 0; Basophils % (manual) 0 (0.0-2.0); Blast Cells 0; Eosinophils % (manual) 0 (0-7); Metamyelocytes % 0; Myelocytes % 0; Promyelocytes % 0; Reactive Lymphocytes 0
[2022-08-14 08:51] VITALS: BP 115/59
[2022-08-14 08:53] LABS: BUN/Creatinine Ratio 44.4; Calcium 9.2 mg/dL (8.5-10.1)
[2022-08-14 10:39] VITALS: BP 115/59
[2022-08-14 12:36] VITALS: BP 118/58
[2022-08-14 14:02] LABS: Lymphocytes % (manual) 3 (10.0-50.0); Monocytes % (manual) 5 (0-12)
[2022-08-14] MEDS ORDERED: PRED20TA2 PO (16:14)
[2022-08-14 17:09] VITALS: BP 115/76
== END 2022-08-14 17:37 | disposition home health service (06) | DRG 871 ==
LOC: ER 12:12 → EDBD 12:12 → TELE 16:02 → ICU WEST 08-05 16:54 → TELE-WESTW 08-07 21:25
PROVIDERS: ADMIT Nurse Practitioner; ATTEND Nurse Practitioner
PROC: 05H933Z Insertion of Infusion Device into Right Brachial Vein, Percutaneous Approach (ICD-10-PCS; principal; 2022-08-04)
PROC: B54MZZA Ultrasonography of Right Upper Extremity Veins, Guidance (ICD-10-PCS; 2022-08-04)
DX: A41.9 Sepsis, unspecified organism (principal); E43 Unspecified severe protein-calorie malnutrition; J18.9 Pneumonia, unspecified organism; J96.20 Acute and chronic respiratory failure, unspecified whether with hypoxia or hypercapnia; J93.9 Pneumothorax, unspecified; I48.92 Unspecified atrial flutter; E86.0 Dehydration; Z20.822 Contact with and (suspected) exposure to COVID-19; I48.0 Paroxysmal atrial fibrillation; R62.7 Adult failure to thrive; E78.5 Hyperlipidemia, unspecified; I11.0 Hypertensive heart disease with heart failure; E88.09 Other disorders of plasma-protein metabolism, not elsewhere classified; I35.0 Nonrheumatic aortic (valve) stenosis; K21.9 Gastro-esophageal reflux disease without esophagitis; J43.9 Emphysema, unspecified; N28.1 Cyst of kidney, acquired; Z63.4 Disappearance and death of family member; I25.2 Old myocardial infarction; Z85.3 Personal history of malignant neoplasm of breast; Z79.01 Long term (current) use of anticoagulants; Z79.899 Other long term (current) drug therapy; Z82.49 Family history of ischemic heart disease and other diseases of the circulatory system; Z82.5 Family history of asthma and other chronic lower respiratory diseases; Z82.61 Family history of arthritis; Z83.3 Family history of diabetes mellitus; Z86.711 Personal history of pulmonary embolism; Z86.718 Personal history of other venous thrombosis and embolism; Z86.73 Personal history of transient ischemic attack (TIA), and cerebral infarction without residual deficits; Z88.1 Allergy status to other antibiotic agents; Z90.13 Acquired absence of bilateral breasts and nipples; Z90.49 Acquired absence of other specified parts of digestive tract; Z90.710 Acquired absence of both cervix and uterus; Z68.22 Body mass index [BMI] 22.0-22.9, adult
CPT/HCPCS: 36415; 36600; 70450; 71045; 71250; 80048; 80053; 81001; 82270; 82271; 82550; 82805; 83605; 83735; 83880; 84100; 84484; 85007; 85025; 85027; 85610; 85730; 86850; 86900; 86901; 87040; 87070; 87077; 87081; 87086; 87186; 87205; 87426; 87804; 93005; 93306; 94002; 94640; 94668; 96365; 96366; 96367; 96375; 97110; 97116; 97530; 99152; 99153; 99291; C9113; G0378; J0696; J1100; J2250; J2405; Q9967